=== PATIENT | female | born 1975 | race American Indian/Alaskan Native ===

== ENCOUNTER 2016-11-22 15:10 | Inpatient (IN) | payer MEDICAID ==
--- NOTE | 2016-11-22 15:59 | Emergency Department Report ---
Chief Complaint: Chest Pain Stated Complaint: CHEST PAIN Time Seen by Provider: 11/22/16 15:54 - HPI History of Present Illness: Patient is a 41-year-old female who presents to ED complaining of nonradiating, 5 out of 10 intensity, left 78, sharp chest pain that started yesterday. Patient's issues at home watching TV when she felt the pain. Patient admits history of hypertension on blood pressure medications. Patient denies fevers/chills/nausea/vomiting/abdominal pain shortness of breath. - Exam Vital Signs: Vital Signs 11/22/16 15:31 Temperature 98.8 F Pulse Rate 76 Respiratory 20 Rate Blood Pressure 136/97 O2 Sat by Pulse 100 Oximetry Physical Exam: GENERAL: Alert and oriented x3, no apparent distress, Normal Gait, atraumatic. HEAD: Head is normocephalic and a-traumatic. NECK: Supple. Non edematous, No carotid bruits. No lymphadenopathy or thyromegaly. LUNGS: Symetrical with respiration, No wheezing, no rales or crackles, CTAB. HEART: S1, S2 present, regular rate and rhythm without murmur, no rubs, no gallops. ABDOMEN: No organomegaly was noted,Positive bowel sounds, soft, and non- distended. . Nontender to palpation on all Quadrants, NO CVA tenderness. SKIN: Warm and dry, No lesions, No ulceration or induration present. MSE screening note: Focused history and physical exam performed. Due to findings the following was ordered: ED Medical Decision Making - Medical Decision Making Chest pain protocol ordered. Patient alert and oriented 3 status signs stable patient is in no acute distress. Patient to be seen by a physician. ED Disposition for MSE Condition: Stable
[2016-11-22 17:18] LABS: Basophils % (Auto) 0.3 % (0.0-1.8); Eosinophils % (Auto) 1.8 % (0.0-4.3); Hemoglobin 11.9 gm/dl (10.1-14.3); Mean Corpuscular HGB Conc 32 % (30-34); Mean Corpuscular Volume 79 fl (79-97); Platelet Count 336 K/mm3 (140-440); Red Blood Count 4.71 M/mm3 (3.65-5.03); Red Cell Distribution Width 15.3 % (13.2-15.2); White Blood Count 4.5 K/mm3 (4.5-11.0)
[2016-11-22 17:25] LABS: Mean Corpuscular Hemoglobin 25 pg (28-32)
[2016-11-22 17:38] LABS: Anion Gap 18 mmol/L; BUN/Creatinine Ratio 11.25; Blood Urea Nitrogen 9 mg/dL (7-17); Calcium 8.9 mg/dL (8.4-10.2); Carbon Dioxide 25 mmol/L (22-30); Chloride 100.5 mmol/L (98-107); Glucose 262 mg/dL (65-100); Potassium 3.5 mmol/L (3.6-5.0); Sodium 140 mmol/L (137-145)
--- NOTE | 2016-11-22 21:40 | Emergency Department Report ---
ED Chest Pain HPI - General Chief Complaint: Chest Pain Stated Complaint: CHEST PAIN Time Seen by Provider: 11/22/16 21:25 Source: patient, RN notes reviewed Mode of arrival: Ambulatory Limitations: No Limitations - History of Present Illness Initial Comments: This is a 41-year-old female, previously unknown to me. Has a past medical history of obesity, diabetes, hypertension and anemia. She reports tobacco use. The patient presents to the ER complaining of chest pain. The chest pain is central. It radiates to the back. She endorses diaphoresis, nausea and shortness of breath. This chronic left lower extremity pain. It is not new, worsening or different. Patient reports a positive family history of heart disease, and reports that her parents had heart attacks/heart disease in their 40s. The chest pain has no exacerbating or relieving factors. It has been present since last night. MD Complaint: chest pain -: Gradual Onset: during rest Pain Location: substernal Pain Radiation: back Severity scale (0 -10): 9 Quality: aching, heaviness Consistency: intermittent Improves With: rest re: nausea, vomting, diaphoresis, dyspnea Aspirin use within the Past 7 Days: (0) No - Related Data Home Medications Medication Instructions Recorded Confirmed Last Taken Hydrochlorothiazide [Hctz] 25 mg PO QDAY 02/24/15 02/24/15 02/21/15 Previous Rx's Medication Instructions Recorded Last Taken Type Lisinopril/Hydrochlorothiazide 1 each PO QAM #14 tablet 02/24/15 Unknown Rx [Zestoretic 20-25 mg] Methocarbamol [Robaxin] 750 mg PO BID #14 tab 02/24/15 Unknown Rx Cyclobenzaprine [Flexeril 10 MG 10 mg PO Q8H PRN #15 tablet 05/05/15 Unknown Rx TAB] Ibuprofen [Motrin 800 MG tab] 800 mg PO Q8HR PRN #30 tablet 05/05/15 Unknown Rx HYDROcodone/APAP 5-325 [[place] 1 each PO Q6HR PRN #12 tablet 09/04/15 Unknown Rx 5-325 mg TAB] Acetaminophen/Codeine 1 tab PO BID PRN #14 tab 02/23/16 Unknown Rx [Acetaminophen-Codeine #3 TAB] Furosemide [Lasix] 20 mg PO QDAY #30 tablet 02/23/16 Unknown Rx Lisinopril/Hydrochlorothiazide 1 tab PO QDAY #30 tab 02/23/16 Unknown Rx [Zestoretic 20-25 mg] Butalb/Acetaminophen/Caffeine 1 cap PO Q6HR PRN #20 cap 05/11/16 Unknown Rx [Fioricet 50-300-40 mg CAP] Azithromycin [Zithromax] 250 mg PO DAILY #6 tablet 09/20/16 Unknown Rx Prednisone [predniSONE 10 mg 10 mg PO .TAPER #1 tab.ds.pk 09/20/16 Unknown Rx (6-Day Pack, 21 Tabs)] diphenhydrAMINE [Benadryl CAP] 50 mg PO QHS #15 capsule 09/20/16 Unknown Rx Allergies Allergy/AdvReac Type Severity Reaction Status Date / Time No Known Allergies Allergy Verified 02/24/15 19:21 CALVIN score - Calvin Score Age > 65: (0) No Aspirin use within the Past 7 Days: (0) No 3 or more CAD Risk Factors: (1) Yes 2 or more Angina events in past 24 hrs: (1) Yes Known CAD with more than 50% Stenosis: (0) No Elevated Cardiac Markers: (0) No ST Deviation Greater than 0.5mm: (0) No CALVIN Score: 2 ED Review of Systems ROS: Stated complaint: CHEST PAIN Other details as noted in HPI Constitutional: diaphoresis, malaise, weakness Eyes: denies: vision change ENT: denies: epistaxis Respiratory: denies: shortness of breath Cardiovascular: chest pain Gastrointestinal: nausea Genitourinary: denies: urgency, dysuria, discharge Musculoskeletal: denies: back pain, joint swelling, arthralgia Skin: denies: rash, lesions Neurological: denies: headache, weakness, paresthesias Psychiatric: denies: anxiety, depression ED Past Medical Hx - Past Medical History Hx Hypertension: Yes Hx Diabetes: Yes Additional medical history: morbid obesity. anemia - Surgical History Past Surgical History?: No - Social History Smoking Status: Never Smoker Substance Use Type: None - Medications Home Medications: Home Medications Medication Instructions Recorded Confirmed Last Taken Type Hydrochlorothiazide [Hctz] 25 mg PO QDAY 02/24/15 02/24/15 02/21/15 History Lisinopril/Hydrochlorothiazide 1 each PO QAM #14 tablet 02/24/15 Unknown Rx [Zestoretic 20-25 mg] Methocarbamol [Robaxin] 750 mg PO BID #14 tab 02/24/15 Unknown Rx Cyclobenzaprine [Flexeril 10 MG 10 mg PO Q8H PRN #15 tablet 05/05/15 Unknown Rx TAB] Ibuprofen [Motrin 800 MG tab] 800 mg PO Q8HR PRN #30 tablet 05/05/15 Unknown Rx HYDROcodone/APAP 5-325 [[place] 1 each PO Q6HR PRN #12 tablet 09/04/15 Unknown Rx 5-325 mg TAB] Acetaminophen/Codeine 1 tab PO BID PRN #14 tab 02/23/16 Unknown Rx [Acetaminophen-Codeine #3 TAB] Furosemide [Lasix] 20 mg PO QDAY #30 tablet 02/23/16 Unknown Rx Lisinopril/Hydrochlorothiazide 1 tab PO QDAY #30 tab 02/23/16 Unknown Rx [Zestoretic 20-25 mg] Butalb/Acetaminophen/Caffeine 1 cap PO Q6HR PRN #20 cap 05/11/16 Unknown Rx [Fioricet 50-300-40 mg CAP] Azithromycin [Zithromax] 250 mg PO DAILY #6 tablet 09/20/16 Unknown Rx Prednisone [predniSONE 10 mg 10 mg PO .TAPER #1 tab.ds.pk 09/20/16 Unknown Rx (6-Day Pack, 21 Tabs)] diphenhydrAMINE [Benadryl CAP] 50 mg PO QHS #15 capsule 09/20/16 Unknown Rx ED Physical Exam - General Limitations: No Limitations General appearance: alert, in no apparent distress - Head Head exam: Present: atraumatic, normocephalic - Eye Eye exam: Present: normal appearance, EOMI. Absent: nystagmus - ENT ENT exam: Present: normal exam, normal orophraynx, mucous membranes moist - Neck Neck exam: Present: normal inspection, full ROM. Absent: tenderness, meningismus - Respiratory Respiratory exam: Present: normal lung sounds bilaterally, chest wall tenderness , other (the bilateral breast exam is unremarkable. In the breast exam, I'm escorted by nurse Bette De Souza). Absent: respiratory distress, wheezes, rales, rhonchi, stridor - Cardiovascular Cardiovascular Exam: Present: regular rate, normal rhythm, normal heart sounds. Absent: bradycardia, tachycardia, irregular rhythm, systolic murmur, diastolic murmur, rubs, gallop - GI/Abdominal GI/Abdominal exam: Present: soft, normal bowel sounds. Absent: distended, tenderness, guarding, rebound, rigid, pulsatile mass - Extremities Exam Extremities exam: Present: normal inspection, full ROM, normal capillary refill. Absent: tenderness, pedal edema, joint swelling, calf tenderness - Back Exam Back exam: Present: normal inspection, full ROM. Absent: tenderness, CVA tenderness (R), CVA tenderness (L), muscle spasm, paraspinal tenderness, vertebral tenderness - Neurological Exam Neurological exam: Present: alert, oriented X3, normal gait, other (Extraocular movements intact. Tongue midline. No facial droop. Facial sensation intact to light touch in the V1, V2, V3 distribution bilaterally. 5 and 5 strength in 4 extremities.. Sensation is intact to light touch in 4 extremities.). Absent : motor sensory deficit - Psychiatric Psychiatric exam: Present: normal affect, normal mood - Skin Skin exam: Present: warm, dry, intact, normal color. Absent: rash ED Course Vital Signs 11/22/16 11/22/16 11/22/16 15:31 20:40 21:00 Temperature 98.8 F Pulse Rate 76 78 74 Respiratory 20 17 23 Rate Blood Pressure 136/97 138/83 O2 Sat by Pulse 100 100 Oximetry 11/22/16 11/22/16 11/22/16 21:11 21:30 22:00 Temperature Pulse Rate 82 75 85 Respiratory 16 16 Rate Blood Pressure 124/79 123/69 O2 Sat by Pulse 96 99 Oximetry 11/22/16 11/22/16 11/22/16 22:18 22:30 23:00 Temperature Pulse Rate 78 78 77 Respiratory 14 11 L 16 Rate Blood Pressure 129/59 141/77 134/106 O2 Sat by Pulse 99 99 Oximetry 11/22/16 11/22/16 11/22/16 23:33 23:34 23:40 Temperature Pulse Rate 78 78 Respiratory 19 Rate Blood Pressure 141/77 134/113 134/113 O2 Sat by Pulse 100 100 Oximetry 11/22/16 11/22/16 11/23/16 23:45 23:46 00:00 Temperature Pulse Rate 84 84 90 Respiratory 13 7 L Rate Blood Pressure 134/113 134/113 155/108 O2 Sat by Pulse 99 100 Oximetry 11/23/16 00:15 Temperature Pulse Rate 87 Respiratory 10 L Rate Blood Pressure 155/111 O2 Sat by Pulse 100 Oximetry - Reevaluation(s) Reevaluation #1: 11/22/16 23:05 Differential diagnosis: GERD, gastritis, pancreatitis, acute coronary syndrome, reflux, unstable angina, pneumonia, pulmonary embolus Assessment and plan: 41-year-old female who is obese, with diabetes and hypertension with typical chest pain, strong family history. Troponins negative multiple times, EKG morphologically abnormal. No pulmonary embolus or DVT risk factors, low risk by well's criteria, perc negative, but d-dimer elevated. She'll be treated symptomatically. CT scan of the chest is ordered and pending. Reevaluation #2: 11/23/16 01:29 CT angiogram of the chest grossly negative for pulmonary embolus. The Hospital physician, Dr. Bradley accepts the patient to her service for ACS risk stratification. ED Medical Decision Making - Lab Data Result diagrams: 11/22/16 17:01 11/22/16 17:01 Vital Signs 11/22/16 11/22/16 11/22/16 15:31 20:40 21:00 Temperature 98.8 F Pulse Rate 76 78 74 Respiratory 20 17 23 Rate Blood Pressure 136/97 138/83 O2 Sat by Pulse 100 100 Oximetry 11/22/16 11/22/16 11/22/16 21:11 21:30 22:00 Temperature Pulse Rate 82 75 85 Respiratory 16 16 Rate Blood Pressure 124/79 123/69 O2 Sat by Pulse 96 99 Oximetry Lab Results 11/22/16 11/22/16 11/22/16 Range/Units 17:01 17:01 17:01 WBC 4.5 (4.5-11.0) K/mm3 RBC 4.71 (3.65-5.03) M/mm3 Hgb 11.9 (10.1-14.3) gm/dl Hct 37.0 (30.3-42.9) % MCV 79 (79-97) fl MCH 25 L (28-32) pg MCHC 32 (30-34) % RDW 15.3 H (13.2-15.2) % Plt Count 336 (140-440) K/mm3 Lymph % (Auto) 44.4 H (13.4-35.0) % [place] % (Auto) 5.5 (0.0-7.3) % Eos % (Auto) 1.8 (0.0-4.3) % Baso % (Auto) 0.3 (0.0-1.8) % Lymph # 2.0 (1.2-5.4) K/mm3 [place] # 0.2 (0.0-0.8) K/mm3 Eos # 0.1 (0.0-0.4) K/mm3 Baso # 0.0 (0.0-0.1) K/mm3 Seg Neutrophils % 48.0 (40.0-70.0) % Seg Neutrophils # 2.1 (1.8-7.7) K/mm3 D-Dimer (0-234) ng/mlDDU Sodium 140 (137-145) mmol/L Potassium 3.5 L (3.6-5.0) mmol/L Chloride 100.5 (98-107) mmol/L Carbon Dioxide 25 (22-30) mmol/L Anion Gap 18 mmol/L BUN 9 (7-17) mg/dL Creatinine 0.8 (0.7-1.2) mg/dL Estimated GFR > 60 ml/min BUN/Creatinine Ratio 11.25 % Glucose 262 H (65-100) mg/dL Calcium 8.9 (8.4-10.2) mg/dL Troponin T < 0.010 < 0.010 (0.00-0.029) ng/mL HCG, Quant (0-4) mIU/mL 11/22/16 11/22/16 11/22/16 Range/Units 22:06 22:06 22:06 WBC (4.5-11.0) K/mm3 RBC (3.65-5.03) M/mm3 Hgb (10.1-14.3) gm/dl Hct (30.3-42.9) % MCV (79-97) fl MCH (28-32) pg MCHC (30-34) % RDW (13.2-15.2) % Plt Count (140-440) K/mm3 Lymph % (Auto) (13.4-35.0) % [place] % (Auto) (0.0-7.3) % Eos % (Auto) (0.0-4.3) % Baso % (Auto) (0.0-1.8) % Lymph # (1.2-5.4) K/mm3 [place] # (0.0-0.8) K/mm3 Eos # (0.0-0.4) K/mm3 Baso # (0.0-0.1) K/mm3 Seg Neutrophils % (40.0-70.0) % Seg Neutrophils # (1.8-7.7) K/mm3 D-Dimer 869.23 H (0-234) ng/mlDDU Sodium (137-145) mmol/L Potassium (3.6-5.0) mmol/L Chloride (98-107) mmol/L Carbon Dioxide (22-30) mmol/L Anion Gap mmol/L BUN (7-17) mg/dL Creatinine (0.7-1.2) mg/dL Estimated GFR ml/min BUN/Creatinine Ratio % Glucose (65-100) mg/dL Calcium (8.4-10.2) mg/dL Troponin T < 0.010 (0.00-0.029) ng/mL HCG, Quant < 2 (0-4) mIU/mL - EKG Data 11/22/16 23:06 normal sinus, 61 bpm, prolonged QTC at 457 ms, nonspecific T- wave at about, not morphologically consistent with STEMI, nonspecific changes when compared to prior EKG from 2012. - Radiology Data Radiology results: report reviewed, image reviewed CT angiogram of the chest negative for pulmonary embolus. Critical care attestation.: If time is entered above; I have spent that time in minutes in the direct care of this critically ill patient, excluding procedure time. ED Disposition Clinical Impression: Chest pain Qualifiers: Chest pain type: unspecified Qualified Code(s): R07.9 - Chest pain, unspecified Disposition: OP ADMITTED IP TO THIS HOSP Is pt being admited?: Yes Does the pt Need Aspirin: Yes Condition: Good Instructions: Chest Pain (ED)
[2016-11-22] MEDS ORDERED: NACL ONE (23:09)
[2016-11-22] MEDS: NITROSTAT SL PRN ×2 (23:40→23:45)
--- NOTE | 2016-11-23 00:17 | Cat Scan Report ---
FINAL REPORT EXAM: CT ANGIO CHEST HISTORY: cp TECHNIQUE: Serial axial images through the chest during intravenous administration of contrast with coronal and sagittal reconstruction PRIORS: None. FINDINGS: There is respiratory motion artifact in the lung bases which limits the sensitivity of the exam. No focal consolidations are seen in the lungs and there are no pleural effusions. No abnormal mass or adenopathy is identified. The heart measures 14.7 centimeters in length. No abnormal filling defects are identified in the central pulmonary arteries. The distal pulmonary artery branches in the lung bases are obscured by artifact. There is fatty infiltration of the liver. Degenerative changes are seen in the spine. IMPRESSION: 1. Study is degraded by motion artifact. No large central pulmonary embolism is identified. A small peripheral embolism in the distal pulmonary arteries in the lung bases is not excluded. 2. Cardiomegaly. 3. Fatty infiltration of the liver.
[2016-11-23] MEDS ORDERED: BABY ASPIRIN PO ONE (01:31)
[2016-11-23] MEDS ORDERED: APRESOLINE IV PRN (01:49)
--- NOTE | 2016-11-23 01:49 | History and Physical Report ---
History of Present Illness Date of examination: 11/23/16 History of present illness: 41-year-old woman with history of hypertension, diabetes, obesity, see emergency room with complaint of chest pain was started yesterday. Pains in the epigastric area which she described as sharp pain, intermittent in nature lasting for 5 minutes, intensity 5/10, no radiation, cannot identify exacerbating or relieving factors. Admits to nausea vomiting, shortness of breath, no diaphoresis or palpitation, no previous stress test Patient denies cough, abdominal pain, hematochezia, dysuria, frequency, focal weakness, dysarthria, fever chills, polydipsia polyuria, hot or cold intolerance , easy bruisability, or rash or bleeding from mucosal membrane, rhinorrhea, epistaxis, earache, tinnitus, blurry vision, eye discharge, anxiety, depression. Other review of systems negative PAST SURGICAL HISTORY: None SOCIAL HISTORY: Denies alcohol, tobacco, drugs FAMILY HISTORY: Hypertension Medications and Allergies Allergies Allergy/AdvReac Type Severity Reaction Status Date / Time No Known Allergies Allergy Verified 02/24/15 19:21 Home Medications Medication Instructions Recorded Confirmed Last Taken Type Hydrochlorothiazide [Hctz] 25 mg PO QDAY 02/24/15 02/24/15 02/21/15 History Lisinopril/Hydrochlorothiazide 1 each PO QAM #14 tablet 02/24/15 Unknown Rx [Zestoretic 20-25 mg] Methocarbamol [Robaxin] 750 mg PO BID #14 tab 02/24/15 Unknown Rx Cyclobenzaprine [Flexeril 10 MG 10 mg PO Q8H PRN #15 tablet 05/05/15 Unknown Rx TAB] Ibuprofen [Motrin 800 MG tab] 800 mg PO Q8HR PRN #30 tablet 05/05/15 Unknown Rx HYDROcodone/APAP 5-325 [[place] 1 each PO Q6HR PRN #12 tablet 09/04/15 Unknown Rx 5-325 mg TAB] Acetaminophen/Codeine 1 tab PO BID PRN #14 tab 02/23/16 Unknown Rx [Acetaminophen-Codeine #3 TAB] Furosemide [Lasix] 20 mg PO QDAY #30 tablet 02/23/16 Unknown Rx Lisinopril/Hydrochlorothiazide 1 tab PO QDAY #30 tab 02/23/16 Unknown Rx [Zestoretic 20-25 mg] Butalb/Acetaminophen/Caffeine 1 cap PO Q6HR PRN #20 cap 05/11/16 Unknown Rx [Fioricet 50-300-40 mg CAP] Azithromycin [Zithromax] 250 mg PO DAILY #6 tablet 09/20/16 Unknown Rx Prednisone [predniSONE 10 mg 10 mg PO .TAPER #1 tab.ds.pk 09/20/16 Unknown Rx (6-Day Pack, 21 Tabs)] diphenhydrAMINE [Benadryl CAP] 50 mg PO QHS #15 capsule 09/20/16 Unknown Rx Active Meds: Active Medications Hydralazine HCl (Apresoline) 5 mg IV Q6HR PRN PRN Reason: Hypertension Nitroglycerin (Nitrostat) 0.4 mg SL .Q5MIN PRN PRN Reason: Chest Pain Last Admin: 11/22/16 23:45 Dose: 0.4 mg Exam - Physical Exam Narrative exam: Gen. appearance: Patient lying in bed, no apparent distress HEENT: Normocephalic, atraumatic, pupils equally round and reactive to light, extraocular movement intact, and no sclericterus,. No JVD or thyromegaly or nodule,neck supple, no carotid bruit ,mucous membranes moist, no exudate or erythema Heart: S1, S2, regular rate and rhythm Lungs: Clear to auscultation bilaterally, breathing comfortable Abdomen: Positive bowel sounds, nontender, nondistended, no organomegaly Extremity: No edema, cyanosis, clubbing Skin: No rash, nodules, warm, dry Neuro: Oriented 3, cranial nerves II-12 intact, speech is fluent, motor and sensory intact - Constitutional Vitals: Temp Pulse Resp BP Pulse Ox 98.8 F 87 10 L 155/111 100 11/22/16 15:31 11/23/16 00:15 11/23/16 00:15 11/23/16 00:15 11/23/16 00:15 Results - Labs CBC & Chem 7: 11/22/16 17:01 11/22/16 17:01 Labs: Abnormal lab results 11/22/16 11/22/16 11/22/16 Range/Units 17:01 17:01 22:06 MCH 25 L (28-32) pg RDW 15.3 H (13.2-15.2) % Lymph % (Auto) 44.4 H (13.4-35.0) % D-Dimer 869.23 H (0-234) ng/mlDDU Potassium 3.5 L (3.6-5.0) mmol/L Glucose 262 H (65-100) mg/dL - Imaging and Cardiology EKG: image reviewed CT scan - chest: report reviewed Assessment and Plan Hypertensive urgency Chest pain, rule out ACS Diabetes type 2 Obesity Admits medicine Check cardiac enzymes, liver profile and obtain a stress test Start aspirin, IV morphine, DVT prophylaxis
[2016-11-23] MEDS ORDERED: MORPHINE IV PRN (03:12)
[2016-11-23] MEDS ORDERED: SODIUM CHLORIDE FLUSH SYRINGE 10 ML IV PRN (03:12)
[2016-11-23] MEDS ORDERED: ZOFRAN IV PRN (03:12)
[2016-11-23] MEDS ORDERED: DULCOLAX PR PRN (03:12)
[2016-11-23] MEDS ORDERED: TYLENOL PO PRN (03:12)
[2016-11-23] MEDS ORDERED: MILK OF MAGNESIA PO PRN (03:12)
[2016-11-23] MEDS ORDERED: BABY ASPIRIN ONE (03:25)
--- NOTE | 2016-11-23 05:42 | Admit Criteria Form ---
Admission Criteria Documentation: CHEST PAIN Clinical Indications for Admission to Inpatient Care (Place 'X' for any and all applicable criteria): Admission is indicated for chest pain and ANY ONE of the following(1)(2)(3)(4)(5 ): [ ]I. Angina with acute coronary syndrome (Also use Myocardial Infarction or Angina guideline) [ ]II. Hemodynamic instability [ ]III. Angina needing acute intervention as indicated by ALL of the following( 11)(12): [ ]a) Unstable angina is present as indicated by angina that is ANY ONE of the following: [ ]i) New onset [ ]ii) Nocturnal [ ]iii) Prolonged at rest [ ]iv) Progressive [ ]b) Angina warrants acute intervention as indicated by ANY ONE of the following: [ ]i) Recurrent angina (e.g, not responding as previously to treatment) [ ]ii) Angina at rest or with low-level activities despite initial medical therapy [ ]iii) New or presumably new ST-segment depression on ECG [ ]iv) Signs or symptoms of heart failure (eg, dyspnea, pulmonary edema) [ ]v) New or worsening mitral regurgitation [ ]vi) Hemodynamic instability [ ]vii) Dangerous arrhythmia (eg, sustained ventricular tachycardia) [ ]viii) History of percutaneous coronary intervention within 6 months [ ]ix) History of coronary artery bypass graft surgery [ ]x) CALVIN risk score of 2 or greater[A] [ ]xi) History of Diabetes(14) [ ]xii) High-risk cardiac ischemia findings on noninvasive testing (e.g, echocardiogram, treadmill testing, nuclear scan) [ ]xiii) Chronic renal insufficiency (ie, estimated GFR less than 60 mL/min/1.732m) [ ]xiv) Left ventricular ejection fraction less than 40% [ ]IV. Evidence of OR (eg, cardiac biomarkers positive, ST-segment elevation on ECG) also use Myocardial Infarction Criteria Form. [ ]V. Pulmonary edema [ ]. Respiratory distress [ ]VII. Chest pain indicative of serious diagnosis other than coronary artery disease (eg, aortic dissection) [X ]VIII. Contraindications and/or Inappropriate clinical situations for Observational Care in patients with Chest Pain, when ANY ONE of the following is required: [ X]a) Patient with risk factor for pulmonary embolism, acute coronary syndrome and myocardial infarction (18) [ ]b) Patient with Pulmonary embolism require an average LOS of 4.3 days, therefore emergency department observation management is inappropriate 18,23 [ ]c) Painful condition/s in the elderly, have the highest rate of recidivism after emergency department observation management (10.8%) 20,21,22 [ ]d) Elevated cardiac biomarker requires intensive and exhaustive care (19) [ ]IX. General contraindications and/or Inappropriate clinical situations for Observational Care in patients with Chest Pain, when ANY ONE of the following is required: [ ]a) Prediction of prolongation of LOS based on ANY ONE of the following may be considered as a contraindication for observational care 2, 3, 4, 5, 6, 7, 8, 9, 10, 11 [ ]i) Age > 65 yrs. [ ]ii) Patient arriving by ambulance [ ]iii) Patient with high acuity [ ]iv) Patient requiring vital sign monitoring [ ]v) Patient on IV medication [ ]b) Systolic blood pressures 180mmHg 3,12 [ ]c) Patient with altered mental status including delirium and other alteration of consciousness, (3) [ ]d) Patient whose discharge disposition will be to a retirement home or rehabilitation home should not be managed in Emergency Department Observation Unit. CMS rule requires 3 days hospital stay before such placement. 3,13 [ ]e) Patient with failure to thrive due to broad array of etiologies 3,16,17 [ ]f) Inability to ambulate 3,14 Extended stay beyond goal length of stay may be needed for (1)(28): [ ]a) Specific condition diagnosed after evaluation (eg, pulmonary embolism, aortic dissection) [ ]b) Unstable angina [ ]c) Continued suspicion of acute coronary syndrome with inability to complete needed cardiac evaluation (eg, patient clinically unable to undergo stress testing) [ ]d) Myocardial infarction (Contents from ANGINA and CHEST PAIN clinical indications for admission to inpatient care have been integrated in this form) The original [email or web address] content created by [employer] has been revised. The portions of the content which have been revised are identified through the use of italic text or in bold, and [facility] has neither reviewed nor approved the modified material. All other unmodified content is copyright [email or web address]. Please see references footnoted in the original [email or web address] edition 2016 Admission Criteria Met: Yes
[2016-11-23 07:16] LABS: Creatine Kinase 148 units/L (30-135)
[2016-11-23 07:21] LABS: Creatine Kinase MB < 1.0 ng/mL (0.0-4.0)
[2016-11-23] MEDS ORDERED: LEXISCAN IV ONE ×2 (08:17→08:30)
[2016-11-23] MEDS ORDERED: LOVENOX SUB-Q SCH (10:00)
[2016-11-23 13:02] LABS: Creatine Kinase MB < 1.0 ng/mL (0.0-4.0)
[2016-11-23 13:05] LABS: Creatine Kinase 145 units/L (30-135)
--- NOTE | 2016-11-23 13:18 | Treadmill Report ---
NUCLEAR STUDY READING PHYSICIAN: Duane Galo MD REASON FOR STUDY: Chest pain. IMAGING PROTOCOL: The patient received 10 mCi of Technetium 99m Tetrofosmin for resting image and 28 mCi of Technetium 99m Tetrofosmin for stress imaging. The imaging for the whole procedure was completed 30-90 minutes following the initial injection of Technetium 99m tetrofosmin. The SPECT imaging in the 180 degree arc was performed in the right anterior oblique projection. Computerized reconstruction of the images was performed for analysis. IMAGING RESULTS: Normal cavity size stress to rest. Normal distribution of radionuclide in the anterior, inferior, septal, and apical regions. Gated SPECT; EF approximately 50% with no wall motion abnormality. The patient infused Lexiscan with no EKG changes. SUMMARY: 1. Negative Lexiscan EKG. 2. Normal rest and stress myocardial perfusion scan. No significant stress ischemia. No wall motion abnormality. Gated SPECT, EF is approximately 50%. JOB# [id number] NELLY/LILLIANA
--- NOTE | 2016-11-23 17:28 | Discharge Summary ---
Providers - Providers Date of Admission: 11/23/16 01:45 Date of discharge: 11/23/16 Attending physician: DARLENE LYON Primary care physician: [employer] Hospitalization Reason for admission: chest pain Condition: Good Pertinent studies: --Elevated D dimers CTA chest; no large central pulmonary embolism identified, small peripheral embolism in the distal pulmonary in the lung base is not excluded Cardiomegaly, fatty infiltration of liver Patient is hemodynamically stable, denies any chest pain or shortness of breath , room air O2 sats 96-97%, unlikely PE, repeat CT angiogram chest as outpatient in 2-3 days,To be followed by primary care physician Stress test;Treadmill stress test; Negative for reversible ischemia, normal rest and stress myocardial perfusion scan, normal left ventricular function with ejection fraction of 50% Hospital course: 41-year-old morbidly obese female patient significant history of hypertension diabetes mellitus obesity was admitted through emergency room with chest pain Admitted to the hospital symptomatically managed subsequently underwent nuclear stress test Which was negative for reversible ischemia and preserved left and function Patient also had elevated d-dimer, CT chest did not reveal large PE, however unable to rule out peripheral small pulmonary embolism in view of morbid obesity Patient has no shortness of breath or chest pain, saturating 95-96% room air, asymptomatic, advised to repeat CT angiogram of the chest in 2-3 days to be reviewed by primary care physician Patient also advised she has any chest pain or shortness of breath contacting me immediately or go to emergency room, patient verbalized understanding Today she is comfortable in bed denies chest pain shortness of breath, alert awake oriented 3 not in acute distress, vital signs stable [id number] evaluation physical examination done by me prior to discharge did not reveal any new changes as detailed in the physical exam Final diagnosis: --accelerated hypertension Well-controlled, continue current antihypertensives and when necessary medications --Chest pain, rule out ACS; symptoms improved Stress test negative for reversible ischemia preserved left ventricular function --Elevated D dimers;no large central pulmonary embolism identified, small peripheral embolism in the distal pulmonary in the lung base is not excluded Repeat CTA in 2 days. To be reviewed by PMD --Diabetes type 2; exercise as tolerated, diabetic diet, check with primary care physician to start oral hypoglycemics if needed --Obesity; on screening done advised modification and exercise as tolerated and weight reduction When medically stable, patient may benefit by outpatient bariatric surgical evaluation for weight reduction program --Chronic pain syndrome. Patient is on multiple pain medications and muscle relaxers Advised to check with primary care physician before resuming medications; Disposition: DISCHARGED TO HOME OR SELFCARE Time spent for discharge: 32 min Core Measure Documentation - Palliative Care Palliative Care/ Comfort Measures: Not Applicable - Core Measures Any of the following diagnoses?: none Exam - Constitutional Vitals: Temp Pulse Resp BP Pulse Ox 98.4 F 84 20 156/103 95 11/23/16 08:37 11/23/16 10:40 11/23/16 08:37 11/23/16 10:40 11/23/16 08:37 General appearance: Present: no acute distress, well-nourished - EENT Eyes: Present: PERRL, EOM intact - Neck Neck: Present: supple, normal ROM - Respiratory Respiratory effort: normal Respiratory: bilateral: diminished, negative: rales, rhonchi, wheezing - Cardiovascular Rhythm: regular Heart Sounds: Present: S1 & S2 - Extremities Extremities: no ischemia, pulses intact, pulses symmetrical Peripheral Pulses: within normal limits - Abdominal General gastrointestinal: Present: soft, non-tender, non-distended, normal bowel sounds - Integumentary Integumentary: Present: clear, warm - Musculoskeletal Musculoskeletal: strength equal bilaterally - Psychiatric Psychiatric: appropriate mood/affect, cooperative - Neurologic Neurologic: CNII-XII intact, moves all extremities Plan Activity: no restrictions Diet: other (cardiac diet) Additional Instructions: If you have chest Pain or shortness of breath, contact M.D. or go to emergency room. CTA chest; no large central pulmonary embolism identified, small peripheral embolism in the distal pulmonary in the lung base is not excluded. Cardiomegaly, fatty infiltration of liver. Patient is hemodynamically stable, denies any chest pain or shortness of breath, room air O2 sats 96-97%, unlikely PE, repeat CT angiogram chest as outpatient in 2-3 days ,To be followed by primary care physician. CTA chest outpatient in in 2-3 days to be reviewed by primary care physician Follow up with: PRIMARY MD BARB [Primary Care Provider] - 3-5 Days
[2016-11-23 18:00] VITALS: BP 148/95
[2016-11-24] MEDS ORDERED: BABY ASPIRIN PO SCH (10:00)
== END 2016-11-23 19:02 | disposition home or self-care (01) | DRG 305 ==
LOC: ED 15:10 → 4A 11-23 01:45
PROVIDERS: ADMIT Internal Medicine; ATTEND Internal Medicine
DX: I16.0 Hypertensive urgency (principal); I24.9 Acute ischemic heart disease, unspecified; Z68.43 Body mass index [BMI] 50.0-59.9, adult; I10 Essential (primary) hypertension; E11.9 Type 2 diabetes mellitus without complications; G89.4 Chronic pain syndrome; E66.9 Obesity, unspecified; Z82.49 Family history of ischemic heart disease and other diseases of the circulatory system; Z79.899 Other long term (current) drug therapy
CPT/HCPCS: 36415; 71275; 78452; 80048; 80061; 82550; 82553; 82962; 84484; 84702; 85025; 85379; 93005; 93010; 93017; A9502; J1650; J2785; Q9967

== ENCOUNTER 2017-04-23 17:37 | Emergency (ER) | payer MEDICAID ==
[2017-04-23 18:50] LABS: Basophils % (Auto) 0.7 % (0.0-1.8); Eosinophils % (Auto) 2.3 % (0.0-4.3); Hematocrit 34.8 % (30.3-42.9); Hemoglobin 11.1 gm/dl (10.1-14.3); Mean Corpuscular HGB Conc 32 % (30-34); Mean Corpuscular Volume 79 fl (79-97); Platelet Count 312 K/mm3 (140-440); Red Blood Count 4.44 M/mm3 (3.65-5.03); Red Cell Distribution Width 16.1 % (13.2-15.2); White Blood Count 5.5 K/mm3 (4.5-11.0)
[2017-04-23 19:01] LABS: Anion Gap 17 mmol/L; Blood Urea Nitrogen 8 mg/dL (7-17); Calcium 8.4 mg/dL (8.4-10.2); Carbon Dioxide 25 mmol/L (22-30); Chloride 101.4 mmol/L (98-107); Glucose 176 mg/dL (65-100); Mean Corpuscular Hemoglobin 25 pg (28-32); Potassium 3.8 mmol/L (3.6-5.0); Sodium 140 mmol/L (137-145)
--- NOTE | 2017-04-23 20:34 | Cat Scan Report ---
FINAL REPORT PROCEDURE: CT HEAD/BRAIN WO CON TECHNIQUE: Computerized tomography of the head was performed without contrast material. HISTORY: head injury, dizziness COMPARISON: No prior studies are available for comparison. FINDINGS: Skull and scalp: Normal. Paranasal sinuses: Normal. Ventricles and subarachnoid spaces: Normal. Cerebrum: No evidence of hemorrhage, acute infarction or mass . Cerebellum and brainstem: No evidence of hemorrhage, acute infarction or mass. Vasculature: Normal. Comments: None. IMPRESSION: Normal Examination
[2017-04-23 21:06] LABS: Bilirubin,Urine NEG (Negative); Blood,Urine NEG (Negative); Ketones,Urine NEG (Negative); Leukocyte Esterase,Urine TR (Negative); Mucus,Urine FEW /HPF; Nitrite,Urine NEG (Negative); Urobilinogen,Urine < 2.0 mg/dL (<2.0)
[2017-04-23 23:00] VITALS: BP 168/97
[2017-04-23] MEDS ORDERED: ZOFRAN ODT PO ONE (23:08)
[2017-04-23] MEDS ORDERED: ANTIVERT PO ONE (23:08)
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
== END 2017-04-23 23:30 | disposition home or self-care (01) ==
LOC: ED 17:37
DX: S00.93XA Contusion of unspecified part of head, initial encounter (principal); R42 Dizziness and giddiness; R11.0 Nausea; I10 Essential (primary) hypertension; F17.200 Nicotine dependence, unspecified, uncomplicated; X58.XXXA Exposure to other specified factors, initial encounter; Y93.9 Activity, unspecified; Y92.9 Unspecified place or not applicable; Y99.9 Unspecified external cause status
CPT/HCPCS: 36415; 70450; 80048; 81001; 82962; 84703; 85025; 99284; Q0162

== ENCOUNTER 2018-01-05 20:34 | Emergency (ER) | payer MEDICAID, SELFPAY ==
[2018-01-05 21:13] VITALS: BP 168/101
[2018-01-05 21:50] LABS: Amorphous Crystals,Urine Few; Bacteria,Urine 2+ /HPF (Negative); Bilirubin,Urine NEG (Negative); Blood,Urine NEG (Negative); Color,Urine Yellow (Yellow); Mucus,Urine FEW /HPF; Protein,Urine <15 mg/dL mg/dL (Negative); Urobilinogen,Urine < 2.0 mg/dL (<2.0)
[2018-01-05 21:52] LABS: HCG Qualitative,Urine Negative (Negative)
== END 2018-01-06 00:38 | disposition left against medical advice (07) ==
LOC: ED 20:34
DX: Z53.21 Procedure and treatment not carried out due to patient leaving prior to being seen by health care provider (principal)
CPT/HCPCS: 81001; 81025; 87591

== ENCOUNTER 2018-01-22 09:37 | Outpatient (CLI) | payer OTHER ==
--- NOTE | 2018-01-22 15:37 | XRay Report ---
Lumbar spine: Back pain. AP and lateral views are obtained. The vertebral height, alignment, and interspaces are preserved. A small traction spur is present at superior margin of L4. The bones are well-mineralized. No significant apophyseal joint disease is appreciated on these images. No significant change identified when compared to prior exam in April 2015. Impression: No acute or significant findings.
--- NOTE | 2018-01-22 17:09 | XRay Report ---
FINAL REPORT EXAM: XR WRIST 2V LT HISTORY: DIABETIC,STAGE 2 PRECANCER TECHNIQUE: AP and lateral views of the left wrist PRIORS: None. FINDINGS: No evidence of acute fracture or dislocation is seen. The soft tissues demonstrate generalized soft tissue swelling but no radiopaque foreign bodies. Mild narrowing of the radiocarpal joint is seen. IMPRESSION: No acute bony abnormality identified. Generalized soft tissue swelling in the wrist.
== END 2018-01-22 09:38 | disposition home or self-care (01) ==
LOC: XRAY 09:37
PROVIDERS: ATTEND Internal Medicine
DX: M79.89 Other specified soft tissue disorders (principal); M53.86 Other specified dorsopathies, lumbar region; E11.9 Type 2 diabetes mellitus without complications; I10 Essential (primary) hypertension
CPT/HCPCS: 72100

== ENCOUNTER 2018-02-02 15:05 | Emergency (ER) | payer MEDICAID, OTHER ==
[2018-02-02 15:12] VITALS: BP 141/84
[2018-02-02] MEDS ORDERED: DELTASONE PO ONE (17:13)
[2018-02-02] MEDS ORDERED: TESSALON PERLES PO ONE (17:13)
--- NOTE | 2018-02-02 17:19 | Emergency Department Report ---
- General Chief Complaint: Upper Respiratory Infection Stated Complaint: FLU LIKE SYMPTOMS Time Seen by Provider: 02/02/18 17:06 Source: patient Mode of arrival: Ambulatory Limitations: No Limitations - History of Present Illness Initial Comments: 42-year-old female with a past medical history hypertension, obesity, and non- insulin-dependent diabetes presents with complaints of cough, nasal congestion, hoarse voice, and sinus drainage for the last 2 weeks. Patient also had this intermittent wheezing episodes and her son's nebulizer machine with improvement. Subjective fever reported yesterday. Patient also concerned she might be allergic to pollen. Generalized pain reported in anterior chest pain with coughing. - Related Data Previous Rx's Medication Instructions Recorded Last Taken Type Furosemide [Lasix TAB] 20 mg PO QDAY #30 tablet 02/23/16 Unknown Rx Lisinopril/Hydrochlorothiazide 1 tab PO QDAY #30 tab 02/23/16 Unknown Rx [Zestoretic 20-25 mg] Meclizine [Antivert] 25 mg PO TID PRN #15 tablet 04/23/17 Unknown Rx Naproxen [Naprosyn TAB] 500 mg PO BID #20 tablet 04/23/17 Unknown Rx Ondansetron [Zofran Odt] 4 mg PO TID PRN #15 tab.rapdis 04/23/17 Unknown Rx traMADol [Ultram 50 MG tab] 50 mg PO Q6HR PRN #20 tablet 04/23/17 Unknown Rx ALBUTEROL Inhaler [ProAir HFA 2 puff IH QID PRN #1 inhalation 02/02/18 Unknown Rx Inhaler] ALBUTEROL NEB's [Proventil 0.083% 2.5 mg IH TID PRN #60 neb 02/02/18 Unknown Rx NEBS] Azithromycin [Zithromax Z-JASMIN] 1 dose PO DAILY 5 Days tab 02/02/18 Unknown Rx Benzonatate [Tessalon Perles] 100 mg PO Q8HR PRN #30 capsule 02/02/18 Unknown Rx predniSONE [Deltasone] 40 mg PO QDAY 5 Days tab 02/02/18 Unknown Rx Allergies Allergy/AdvReac Type Severity Reaction Status Date / Time No Known Allergies Allergy Verified 04/23/17 17:47 ED Review of Systems ROS: Stated complaint: FLU LIKE SYMPTOMS Other details as noted in HPI Comment: All other systems reviewed and negative ED Past Medical Hx - Past Medical History Hx Hypertension: Yes Hx Diabetes: Yes Hx Asthma: No Hx COPD: No Additional medical history: morbid obesity. anemia - Surgical History Additional Surgical History: tubiligation - Social History Smoking Status: Never Smoker Substance Use Type: None - Medications Home Medications: Home Medications Medication Instructions Recorded Confirmed Last Taken Type Furosemide [Lasix TAB] 20 mg PO QDAY #30 tablet 02/23/16 Unknown Rx Lisinopril/Hydrochlorothiazide 1 tab PO QDAY #30 tab 02/23/16 Unknown Rx [Zestoretic 20-25 mg] Meclizine [Antivert] 25 mg PO TID PRN #15 tablet 04/23/17 Unknown Rx Naproxen [Naprosyn TAB] 500 mg PO BID #20 tablet 04/23/17 Unknown Rx Ondansetron [Zofran Odt] 4 mg PO TID PRN #15 tab.rapdis 04/23/17 Unknown Rx traMADol [Ultram 50 MG tab] 50 mg PO Q6HR PRN #20 tablet 04/23/17 Unknown Rx ALBUTEROL Inhaler [ProAir HFA 2 puff IH QID PRN #1 inhalation 02/02/18 Unknown Rx Inhaler] ALBUTEROL NEB's [Proventil 0.083% 2.5 mg IH TID PRN #60 neb 02/02/18 Unknown Rx NEBS] Azithromycin [Zithromax Z-JASMIN] 1 dose PO DAILY 5 Days tab 02/02/18 Unknown Rx Benzonatate [Tessalon Perles] 100 mg PO Q8HR PRN #30 capsule 02/02/18 Unknown Rx predniSONE [Deltasone] 40 mg PO QDAY 5 Days tab 02/02/18 Unknown Rx ED Physical Exam - General Limitations: No Limitations - Other Other exam information: General: No limitations, patient is alert in no acute distress Head exam: Atraumatic, normocephalic Eyes exam: Normal appearance ENT: Moist mucous membrane, normal oropharynx, hoarse voice Neck exam: Normal inspection, full range of motion, no meningismus nontender Respiratory exam: Clear to auscultation bilateral, no wheezes, rales, crackles. Frequent dry cough Cardiovascular: Normal rate and rhythm, normal heart sounds Abdomen: Soft, nondistended, and nontender, with normal bowel sounds, no rebound, or guarding Extremity: Full range of motion normal inspection no deformity Back: Normal Inspection, full range of motion, no tenderness Neurologic: Alert, oriented x3, cranial nerves intact, no motor or sensory deficit Psychiatric: normal affect, normal mood Skin: Warm, dry, intact ED Course Vital Signs 02/02/18 15:08 Temperature 98.5 F Pulse Rate 100 H Respiratory 20 Rate Blood Pressure 141/84 O2 Sat by Pulse 98 Oximetry ED Medical Decision Making - Radiology Data Radiology results: image reviewed interpreted by me: Chest x-ray read by me: No acute findings - Medical Decision Making Plan to discharge patient on medications for acute bronchitis and cough. Patient provided a nebulizer mouthpiece so she would not have to use her signs. Outpatient follow-up encouraged. Patient warned that prednisone can increase glucose - Differential Diagnosis bronchitis, seasonal allergies, viral syndrome, URI, pneumonia Critical Care Time: No Critical care attestation.: If time is entered above; I have spent that time in minutes in the direct care of this critically ill patient, excluding procedure time. ED Disposition Clinical Impression: Acute bronchitis Disposition: TO HOME OR SELFCARE Is pt being admited?: No Does the pt Need Aspirin: No Condition: Stable Instructions: Acute Bronchitis (ED) Additional Instructions: Take the medication as prescribed. Return if symptoms worsen. The prednisone can elevate your blood sugar therefore it is important to monitor your blood glucose/sugar closely and follow-up with your doctor. Prescriptions: ALBUTEROL Inhaler [ProAir HFA Inhaler] 2 puff IH QID PRN #1 inhalation PRN Reason: Shortness Of Breath ALBUTEROL NEB's [Proventil 0.083% NEBS] 2.5 mg IH TID PRN #60 neb PRN Reason: Wheezing Azithromycin [Zithromax Z-JASMIN] 1 dose PO DAILY 5 Days tab Benzonatate [Tessalon Perles] 100 mg PO Q8HR PRN #30 capsule PRN Reason: Cough predniSONE [Deltasone] 40 mg PO QDAY 5 Days tab Referrals: PRIMARY CARE,MD [Primary Care Provider] - 3-5 Days Time of Disposition: 17:59
--- NOTE | 2018-02-02 18:58 | XRay Report ---
FINAL REPORT EXAM: XR CHEST ROUTINE 2V HISTORY: cough, wheeze TECHNIQUE: Two views of the chest were performed Comparison: None FINDINGS: Heart size is normal. There is prominence of the bilateral interstitial markings. Lateral film is motion degraded. There is mild bronchial thickening. There are no pleural effusions. There is mild degenerative spondylosis of the thoracic vertebral bodies. IMPRESSION: Mild prominence of the bilateral interstitial markings and mild bronchial thickening. Findings may represent a viral pneumonia or bronchitis. There is motion degradation on the lateral projection. Favor viral infiltrate.
== END 2018-02-02 18:13 | disposition home or self-care (01) ==
LOC: ED 15:05
DX: J20.9 Acute bronchitis, unspecified (principal); I10 Essential (primary) hypertension; E11.9 Type 2 diabetes mellitus without complications; E66.01 Morbid (severe) obesity due to excess calories; Z98.51 Tubal ligation status
CPT/HCPCS: 71046; 99283; J7512

== ENCOUNTER 2018-11-20 15:52 | Emergency (ER) | payer MEDICAID ==
[2018-11-20 16:40] LABS: Basophils % (Auto) 0.6 % (0.0-1.8); Eosinophils # (Auto) 0.1 K/mm3 (0.0-0.4); Eosinophils % (Auto) 1.6 % (0.0-4.3); Hematocrit 41.8 % (30.3-42.9); Hemoglobin 13.8 gm/dl (10.1-14.3); Lymphocytes # (Auto) 2.3 K/mm3 (1.2-5.4); Lymphocytes % (Auto) 46.5 % (13.4-35.0); Mean Corpuscular HGB Conc 33 % (30-34); Mean Corpuscular Volume 78 fl (79-97); Monocytes # (Auto) 0.3 K/mm3 (0.0-0.8); Monocytes % (Auto) 5.4 % (0.0-7.3); Platelet Count 315 K/mm3 (140-440); Red Blood Count 5.34 M/mm3 (3.65-5.03); Red Cell Distribution Width 15.1 % (13.2-15.2)
[2018-11-20 17:13] LABS: BUN/Creatinine Ratio 13; Blood Urea Nitrogen 10 mg/dL (7-17); Hemolysis Index 0
[2018-11-20 17:14] LABS: Bacteria,Urine 1+ /HPF (Negative); Bilirubin,Urine NEG (Negative); Blood,Urine NEG (Negative); Color,Urine Straw (Yellow); Mucus,Urine FEW /HPF; Protein,Urine <15 mg/dL mg/dL (Negative); Urobilinogen,Urine < 2.0 mg/dL (<2.0)
--- NOTE | 2018-11-20 17:40 | Emergency Department Report ---
ED General Adult HPI - General Chief complaint: Hyperglycemia Stated complaint: GLUCOSE HIGH Time Seen by Provider: 11/20/18 17:05 Source: patient Mode of arrival: Ambulatory Limitations: No Limitations - History of Present Illness Initial comments: Patient is a 43-year-old female that tells emergency room with complaints of hyperglycemia. Patient states her primary care center here for further evaluation. Patient states she stopped taking her diabetes medication approximately 8 months ago and her sugar has remained high. Patient states initially started metformin 500 mg twice a day. Patient denies side effects to metformin. Patient denies chest pain shortness of breath. Patient denies abdominal pain. Patient denies other physical symptoms except for polyuria/polydipsia and itching to the bottom of her feet. Patient states this morning she had 2 chicken biscuits which caused her blood sugar to be high. -: Sudden Severity scale (0 -10): 0 Improves with: medication, movement, other (diabetic diet) Worsens with: other (poor diet and missed medications) Associated Symptoms: denies: confusion, chest pain, cough, diaphoresis, fever/chills, headaches, loss of appetite, malaise, nausea/vomiting, rash, seizure, shortness of breath, syncope, weakness Treatments Prior to Arrival: none - Related Data Previous Rx's Medication Instructions Recorded Last Taken Type Lisinopril/Hydrochlorothiazide 1 tab PO QDAY #30 tab 02/23/16 Unknown Rx [Zestoretic 20-25 mg] Meclizine [Antivert] 25 mg PO TID PRN #15 tablet 04/23/17 Unknown Rx Ondansetron [Zofran Odt] 4 mg PO TID PRN #15 tab.rapdis 04/23/17 Unknown Rx traMADol [Ultram 50 MG tab] 50 mg PO Q6HR PRN #20 tablet 04/23/17 Unknown Rx ALBUTEROL Inhaler (OR & NICU) 2 puff IH QID PRN #1 inhalation 02/02/18 Unknown Rx [ProAir HFA Inhaler] ALBUTEROL NEB's [Proventil 0.083% 2.5 mg IH TID PRN #60 neb 02/02/18 Unknown Rx NEBS] Azithromycin [Zithromax Z-JASMIN] 1 dose PO DAILY 5 Days tab 02/02/18 Unknown Rx Benzonatate [Tessalon Perles] 100 mg PO Q8HR PRN #30 capsule 02/02/18 Unknown Rx predniSONE [Deltasone] 40 mg PO QDAY 5 Days tab 02/02/18 Unknown Rx Furosemide [Lasix TAB] 20 mg PO QDAY #30 tablet 09/16/18 Unknown Rx Naproxen [Naprosyn TAB] 500 mg PO BID #20 tablet 09/16/18 Unknown Rx glipiZIDE [Glipizide] 5 mg PO DAILY #15 tablet 11/20/18 Unknown Rx Allergies Allergy/AdvReac Type Severity Reaction Status Date / Time No Known Allergies Allergy Verified 04/23/17 17:47 ED Review of Systems ROS: Stated complaint: GLUCOSE HIGH Other details as noted in HPI Constitutional: denies: chills, fever Eyes: denies: eye pain, eye discharge, vision change ENT: denies: ear pain, throat pain Respiratory: denies: cough, shortness of breath, wheezing Cardiovascular: denies: chest pain, palpitations Endocrine: see HPI, increased thirst, increased urine Gastrointestinal: denies: abdominal pain, nausea, diarrhea Genitourinary: denies: urgency, dysuria, discharge Musculoskeletal: denies: back pain, joint swelling, arthralgia Skin: denies: rash, lesions Neurological: denies: headache, weakness, paresthesias Psychiatric: denies: anxiety, depression Hematological/Lymphatic: denies: easy bleeding, easy bruising ED Past Medical Hx - Past Medical History Previous Medical History?: Yes Hx Hypertension: Yes Hx Diabetes: Yes Hx Asthma: No Hx COPD: No Additional medical history: morbid obesity. anemia - Surgical History Past Surgical History?: Yes Additional Surgical History: tubal Ligation - Family History Family history: no significant - Social History Smoking Status: Never Smoker Substance Use Type: None - Medications Home Medications: Home Medications Medication Instructions Recorded Confirmed Last Taken Type Lisinopril/Hydrochlorothiazide 1 tab PO QDAY #30 tab 02/23/16 Unknown Rx [Zestoretic 20-25 mg] Meclizine [Antivert] 25 mg PO TID PRN #15 tablet 04/23/17 Unknown Rx Ondansetron [Zofran Odt] 4 mg PO TID PRN #15 tab.rapdis 04/23/17 Unknown Rx traMADol [Ultram 50 MG tab] 50 mg PO Q6HR PRN #20 tablet 04/23/17 Unknown Rx ALBUTEROL Inhaler (OR & NICU) 2 puff IH QID PRN #1 inhalation 02/02/18 Unknown Rx [ProAir HFA Inhaler] ALBUTEROL NEB's [Proventil 0.083% 2.5 mg IH TID PRN #60 neb 02/02/18 Unknown Rx NEBS] Azithromycin [Zithromax Z-JASMIN] 1 dose PO DAILY 5 Days tab 02/02/18 Unknown Rx Benzonatate [Tessalon Perles] 100 mg PO Q8HR PRN #30 capsule 02/02/18 Unknown Rx predniSONE [Deltasone] 40 mg PO QDAY 5 Days tab 02/02/18 Unknown Rx Furosemide [Lasix TAB] 20 mg PO QDAY #30 tablet 09/16/18 Unknown Rx Naproxen [Naprosyn TAB] 500 mg PO BID #20 tablet 09/16/18 Unknown Rx glipiZIDE [Glipizide] 5 mg PO DAILY #15 tablet 11/20/18 Unknown Rx ED Physical Exam - General Limitations: No Limitations General appearance: alert, in no apparent distress - Head Head exam: Present: atraumatic, normocephalic - Eye Eye exam: Present: normal appearance - ENT ENT exam: Present: mucous membranes moist - Neck Neck exam: Present: normal inspection - Respiratory Respiratory exam: Present: normal lung sounds bilaterally. Absent: respiratory distress - Cardiovascular Cardiovascular Exam: Present: regular rate, normal rhythm. Absent: systolic murmur, diastolic murmur, rubs, gallop - GI/Abdominal GI/Abdominal exam: Present: soft, normal bowel sounds - Extremities Exam Extremities exam: Present: normal inspection, full ROM, normal capillary refill. Absent: tenderness, pedal edema, joint swelling, calf tenderness - Back Exam Back exam: Present: normal inspection - Neurological Exam Neurological exam: Present: alert, oriented X3 - Psychiatric Psychiatric exam: Present: normal affect, normal mood - Skin Skin exam: Present: warm, dry, intact, normal color. Absent: rash ED Course Vital Signs 11/20/18 11/20/18 16:08 19:00 Temperature 97.8 F Pulse Rate 76 78 Respiratory 16 16 Rate Blood Pressure 124/88 Blood Pressure 140/68 [Left] O2 Sat by Pulse 100 98 Oximetry - Reevaluation(s) Reevaluation #1: Labs reviewed and discussed with patient. Patient is stable for discharge. Patient given discharge instructions. . Patient will be given diabetes instructions. Patient will also be given a prescription for glipizide. She given medication instructions. Patient given diabetic diet instructions. Patient voiced understanding of discharge instructions and return to ER instructions 11/20/18 17:39 Reevaluation #2: Discussed all results and plan of care with patient. Patient agrees with plan of care and discharged. Patient to be discharged home. Patient given pre scription for glipizide. Patient did not have any side effects to the glipizide. Patient's last blood sugar at 336. Patient denies dizziness. Patient denies blurry vision. Patient denies chest pain or shortness of breath. Patient states the itching has improved with Zyrtec. 11/20/18 18:57 ED Medical Decision Making - Lab Data Result diagrams: 11/20/18 16:24 11/20/18 16:24 - Medical Decision Making Patient is a 43-year-old female that presents to emergency room with complaints of hyperglycemia. Patient seen is secondary to noncompliance with diabetes diet and noncompliance with diabetes medications. Patient recently restarted on metformin 500 mg twice a day. Patient will continue taking metformin. Glipizide will be added to patient's regimen. Patient given discharge instructions. Patient is stable for discharge. Labs review patient. All labs reviewed. Labs unremarkable except for hyperglycemia and secondary hypernatremia. - Differential Diagnosis noncompliance. Diabetes. Hyperglycemia Critical care attestation.: If time is entered above; I have spent that time in minutes in the direct care of this critically ill patient, excluding procedure time. ED Disposition Clinical Impression: Hyperglycemia, Medical non-compliance Diabetes Qualifiers: Diabetes mellitus type: type 2 Diabetes mellitus senior living insulin use: without ferry terminal agent use Diabetes mellitus complication status: without complication Qualified Code(s): E11.9 - Type 2 diabetes mellitus without complications Disposition: DC-01 TO HOME OR SELFCARE Is pt being admited?: No Does the pt Need Aspirin: No Condition: Stable Instructions: How to Check Your Blood Sugar (ED), Diabetic Foot Care (ED), Diabetes Mellitus Type 2 in Adults (ED), Meal Planning with Diabetes Exchanges (DC), Hypertension (ED) Additional Instructions: Patient to follow-up with primary care in 2-3 days. Patient to follow up with body sander in 2-3 days. Patient to return to your condition worsens. Patient take all meds as directed. Patient to start glipizide as directed. Patient to take Tylenol when necessary for pain. Patient increase water. P atient is a diabetic diet Prescriptions: glipiZIDE [Glipizide] 5 mg PO DAILY #15 tablet Referrals: ZAID RM MD [Primary Care Provider] - 3-5 Days Time of Disposition: 17:44
[2018-11-20] MEDS ORDERED: GLUCOTROL PO ONE (17:45)
[2018-11-20] MEDS ORDERED: CLARITIN PO ONE (18:07)
[2018-11-20 19:01] VITALS: BP 140/68
== END 2018-11-20 19:01 | disposition home or self-care (01) ==
LOC: ED 15:52
DX: E11.65 Type 2 diabetes mellitus with hyperglycemia (principal); I10 Essential (primary) hypertension; E66.01 Morbid (severe) obesity due to excess calories; Z68.43 Body mass index [BMI] 50.0-59.9, adult; Z98.51 Tubal ligation status; Z86.2 Personal history of diseases of the blood and blood-forming organs and certain disorders involving the immune mechanism; Z79.899 Other long term (current) drug therapy
CPT/HCPCS: 36415; 80048; 81001; 82805; 82962; 84703; 85025

== ENCOUNTER 2018-12-24 14:32 | Emergency (ER) | payer MEDICAID, OTHER ==
[2018-12-24 14:42] VITALS: BP 151/96
--- NOTE | 2018-12-24 14:44 | Emergency Department Report ---
Blank Doc - Documentation Documentation: Fall yesterday night. Slipped on grease. C/o left knee pain, rt shoulder pain and lower back pain. This initial assessment diagnostic orders/clinical plan/treatment (s) is/Are subject change based on patient's health status, clinical progression and re- assessment by fellow clinical providers in the ED. Further treatment and work-up at subsequent clinical providers discretion. Patient/guardians urged not to elope from their condition may be serious if not clinically assessed and managed. Initial order include:
--- NOTE | 2018-12-24 16:35 | Emergency Department Report ---
HPI - General Chief Complaint: Back Pain/Injury Time Seen by Provider: 12/24/18 14:40 - HPI HPI: This is a 43-year-old female presents to ED today complaining about lower back pain status post fall. Patient states that she slipped and fell on some grease and was on the floor accidentally. Patient denies any head or neck or loss of consciousness after incident. Patient was able to get up after the incident. ED Past Medical Hx - Past Medical History Hx Hypertension: Yes Hx Diabetes: Yes Hx Asthma: No Hx COPD: No Additional medical history: morbid obesity. anemia - Surgical History Additional Surgical History: tubal Ligation - Social History Smoking Status: Never Smoker Substance Use Type: None - Medications Home Medications: Home Medications Medication Instructions Recorded Confirmed Last Taken Type Lisinopril/Hydrochlorothiazide 1 tab PO QDAY #30 tab 02/23/16 Unknown Rx [Zestoretic 20-25 mg] Meclizine [Antivert] 25 mg PO TID PRN #15 tablet 04/23/17 Unknown Rx ALBUTEROL Inhaler (OR & NICU) 2 puff IH QID PRN #1 inhalation 02/02/18 Unknown Rx [ProAir HFA Inhaler] ALBUTEROL NEB's [Proventil 0.083% 2.5 mg IH TID PRN #60 neb 02/02/18 Unknown Rx NEBS] Furosemide [Lasix TAB] 20 mg PO QDAY #30 tablet 09/16/18 Unknown Rx glipiZIDE [Glipizide] 5 mg PO DAILY #15 tablet 11/20/18 Unknown Rx Cyclobenzaprine [Flexeril] 10 mg PO QHS PRN #20 tablet 12/24/18 Unknown Rx Ibuprofen [Motrin] 800 mg PO Q8HR #30 tablet 12/24/18 Unknown Rx ED Review of Systems ROS: Stated complaint: DIZZY/BACK PAIN Other details as noted in HPI Comment: All other systems reviewed and negative Physical Exam - Physical Exam Vital Signs: Vital Signs 12/24/18 14:40 Temperature 97.8 F Pulse Rate 79 Respiratory 18 Rate Blood Pressure 151/96 O2 Sat by Pulse 99 Oximetry Physical Exam: GENERAL: Alert and oriented x3, no apparent distress, Normal Gait, atraumatic. HEAD: Head is normocephalic and a-traumatic. NECK: Supple. Non edematous, No lymphadenopathy or thyromegaly. No C-spine tenderness, full range of motion LUNGS: Symetrical with respiration, No wheezing, no rales or crackles, CTAB. HEART: S1, S2 present, regular rate and rhythm without murmur, no rubs, no gallops. Non tender to palpation BACK: Full range of motion, no spinal tenderness, Tenderness to palpation of the trapezius muscles and latissimus dorsi muscles of the back NEUROLOGIC: The patient is cooperative with no focal neurologic deficits. SKIN: Warm and dry, No lesions, No ulceration or induration present. ED Course Vital Signs 12/24/18 14:40 Temperature 97.8 F Pulse Rate 79 Respiratory 18 Rate Blood Pressure 151/96 O2 Sat by Pulse 99 Oximetry ED Medical Decision Making - Radiology Data Radiology results: report reviewed, image reviewed PROCEDURE: XR SPINE LUMBOSACRAL 2-3V TECHNIQUE: Frontal and lateral views lumbar spine HISTORY: fall with back pain COMPARISONS: None FINDINGS: Visualization of bone detail is somewhat limited by artifact created by large body habitus. Bony alignment is normal. The vertebral heights are maintained. There appears to be loss of height of the L5-S1 disc. There is no plain film evidence of fracture or subluxation. The paraspinous soft tissues are unremarkable. IMPRESSION: 1. Study somewhat degraded by artifact created by large body habitus. 2. No evidence of fracture or subluxation. However, lumbar spine fractures can be missed with plain film imaging. If there is a clinical concern for fracture, CT imaging would be helpful. 3. Appearance of degenerative disc change L5-S1 level. This document is electronically signed by Christine Rosario MD., December 24 2018 04:18:17 PM ET Transcribed By: ED Dictated By: CHRISTINE ROSARIO MD Electronically Authenticated By: CHRISTINE ROSARIO MD Signed Date/Time: 12/24/18 8445 - Medical Decision Making 39-year-old female presents to ED with myalgia is status post accidental slip and fall ED course: Patient received motrin for pain control. xrays completed: no acute process Vital signs are normal patient is in no acute distress Discussed with patient follow-up with primary care physician. Discussed the patient and take medications as prescribed. Patient has no neurological deficit. Patient is alert and oriented 3 and understands all instructions given. Discussed drowsiness effect of Flexeril makes her drowsy and not to operate machinery while taking flexeril Critical care attestation.: If time is entered above; I have spent that time in minutes in the direct care of this critically ill patient, excluding procedure time. ED Disposition Clinical Impression: Lumbar strain Disposition: DC-01 TO HOME OR SELFCARE Is pt being admited?: No Does the pt Need Aspirin: No Condition: Stable Instructions: Muscle Strain (ED), Low Back Strain (ED) Additional Instructions: Make sure to follow up with the primary care physician as discussed. Take all your medications as you've been prescribed. If you have any worsening symptoms or develop new symptoms please return to ED immediately. Prescriptions: Cyclobenzaprine [Flexeril] 10 mg PO QHS PRN #20 tablet PRN Reason: Muscle Spasm Ibuprofen [Motrin] 800 mg PO Q8HR #30 tablet Referrals: PRIMARY CAREMD [Primary Care Provider] - 3-5 Days MAI GREENE MD [Referring] - 3-5 Days [facility] [Outside] - 3-5 Days Forms: Work/School Release Form(ED)
--- NOTE | 2018-12-24 16:56 | XRay Report ---
PROCEDURE: XR SHOULDER 2+V RT TECHNIQUE: Frontal and Y views right shoulder HISTORY: fall with shoulder pain COMPARISONS: None FINDINGS: There is no evidence of fracture or subluxation. There is evidence of degenerative change of the acromioclavicular joint and glenohumeral joint. The soft tissues are unremarkable. IMPRESSION: 1. No evidence of fracture or subluxation. 2. Degenerative joint change. This document is electronically signed by Christine Rosario MD., December 24 2018 04:15:06 PM ET
--- NOTE | 2018-12-24 16:56 | XRay Report ---
PROCEDURE: XR SPINE LUMBOSACRAL 2-3V TECHNIQUE: Frontal and lateral views lumbar spine HISTORY: fall with back pain COMPARISONS: None FINDINGS: Visualization of bone detail is somewhat limited by artifact created by large body habitus. Bony alignment is normal. The vertebral heights are maintained. There appears to be loss of height of the L5-S1 disc. There is no plain film evidence of fracture or subluxation. The paraspinous soft tissues are unremarkable. IMPRESSION: 1. Study somewhat degraded by artifact created by large body habitus. 2. No evidence of fracture or subluxation. However, lumbar spine fractures can be missed with plain f ilm imaging. If there is a clinical concern for fracture, CT imaging would be helpful. 3. Appearance of degenerative disc change L5-S1 level. This document is electronically signed by Christine Rosario MD., December 24 2018 04:18:17 PM ET
--- NOTE | 2018-12-24 16:56 | XRay Report ---
PROCEDURE: XR KNEE 3V LT TECHNIQUE: Frontal, lateral, oblique views left knee HISTORY: fall with knee pain COMPARISONS: None FINDINGS: There is no evidence of fracture or subluxation. There is degenerative change of the tibiofemoral joint, medial greater than lateral, and of the gómez lofemoral joint with osteophyte formation. The soft tissues are unremarkable. IMPRESSION: 1. No evidence of fracture or subluxation. 2. Degenerative joint change. This document is electronically signed by Christine Rosario MD., December 24 2018 04:13:27 PM ET
== END 2018-12-24 16:59 | disposition home or self-care (01) ==
LOC: ED 14:32
DX: S39.012A Strain of muscle, fascia and tendon of lower back, initial encounter (principal); I10 Essential (primary) hypertension; E11.9 Type 2 diabetes mellitus without complications; D64.9 Anemia, unspecified; Z98.51 Tubal ligation status; W01.0XXA Fall on same level from slipping, tripping and stumbling without subsequent striking against object, initial encounter; Y93.89 Activity, other specified; Y92.89 Other specified places as the place of occurrence of the external cause; Y99.8 Other external cause status
CPT/HCPCS: 72100

== ENCOUNTER 2019-06-28 18:40 | Emergency (ER) | payer MEDICAID ==
--- NOTE | 2019-06-28 19:25 | Event Note ---
ED Screening Note Date of service: 06/28/19 Time: 19:22 ED Screening Note: 44 y o f presents to ED cc of having a yeast infection as well as right calf swelling and pain This initial assessment/diagnostic orders/clinical plan/treatment(s) is/are subject to change based on patients health status, clinical progression and re- assessment by fellow clinical providers in the ED. Further treatment and workup at subsequent clinical providers discretion. Patient/guardian urged not to elope from the ED as their condition may be serious if not clinically assessed and managed. Initial orders include: DOppler
--- NOTE | 2019-06-28 20:41 | Vascular Lab Report ---
VL venous duplex LE LT INDICATION / CLINICAL INFORMATION: swelling/ pain. Graft Doppler ultrasound and spectral analysis was performed on the left lower extrem ity COMPARISON: None available. FINDINGS: The left common femoral, superficial femoral, popliteal and calf veins were identified. The veins are all compressible no obvious thrombus is seen. Normal Doppler flow seen in each vessel. There is a 1. 2 cm lymph node in the left groin IMPRESSION: No evidence of deep venous thrombosis of the left lower extremity. 1.2 cm lymph node in the left groi n Signer Name: Redd SARKAR Signed: 06/28/2019 8:37 PM Workstation Name: [id number]
[2019-06-28] MEDS ORDERED: PERCOCET 5/325 PO ONE (22:43)
[2019-06-28] MEDS ORDERED: ZOFRAN ODT PO ONE (22:43)
[2019-06-28] MEDS ORDERED: TORADOL IM ONE (22:46)
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
[2019-06-28 23:09] VITALS: BP 167/104
== END 2019-06-28 23:07 | disposition home or self-care (01) ==
LOC: ED 18:40
DX: S86.912A Strain of unspecified muscle(s) and tendon(s) at lower leg level, left leg, initial encounter (principal); M17.12 Unilateral primary osteoarthritis, left knee; G89.29 Other chronic pain; I10 Essential (primary) hypertension; E11.9 Type 2 diabetes mellitus without complications; E66.01 Morbid (severe) obesity due to excess calories; Z68.43 Body mass index [BMI] 50.0-59.9, adult; Z79.4 Long term (current) use of insulin; Z79.899 Other long term (current) drug therapy; Z79.1 Long term (current) use of non-steroidal anti-inflammatories (NSAID); Z86.2 Personal history of diseases of the blood and blood-forming organs and certain disorders involving the immune mechanism; Z98.51 Tubal ligation status; V89.2XXA Person injured in unspecified motor-vehicle accident, traffic, initial encounter; Y93.89 Activity, other specified; Y92.488 Other paved roadways as the place of occurrence of the external cause; Y99.8 Other external cause status
CPT/HCPCS: 29505; 93971; 96372; 99284; J1885; Q0162

== ENCOUNTER 2019-07-22 21:57 | Emergency (ER) | payer OTHER, MEDICAID ==
[2019-07-22 22:04] VITALS: BP 149/105
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
[2019-07-22] MEDS ORDERED: IBUPROFEN 800 MG TAB PO ONE (23:25)
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
== END 2019-07-23 01:22 | disposition home or self-care (01) ==
LOC: ED 21:57
DX: S86.912A Strain of unspecified muscle(s) and tendon(s) at lower leg level, left leg, initial encounter (principal); S13.4XXA Sprain of ligaments of cervical spine, initial encounter; S39.012A Strain of muscle, fascia and tendon of lower back, initial encounter; I10 Essential (primary) hypertension; E11.9 Type 2 diabetes mellitus without complications; Z86.2 Personal history of diseases of the blood and blood-forming organs and certain disorders involving the immune mechanism; E66.01 Morbid (severe) obesity due to excess calories; Z68.37 Body mass index [BMI] 37.0-37.9, adult; Z98.51 Tubal ligation status; Z79.899 Other long term (current) drug therapy; Z79.1 Long term (current) use of non-steroidal anti-inflammatories (NSAID); V89.2XXA Person injured in unspecified motor-vehicle accident, traffic, initial encounter; Y93.89 Activity, other specified; Y92.488 Other paved roadways as the place of occurrence of the external cause; Y99.8 Other external cause status
CPT/HCPCS: 72040; 72100; 99283

== ENCOUNTER 2019-10-02 00:21 | Emergency (ER) | payer OTHER, MEDICAID ==
[2019-10-02 00:36] VITALS: BP 150/98
== END 2019-10-02 01:00 | disposition left against medical advice (07) ==
LOC: ED 00:21
DX: Z04.1 Encounter for examination and observation following transport accident (principal); Z53.21 Procedure and treatment not carried out due to patient leaving prior to being seen by health care provider

== ENCOUNTER 2020-05-15 15:17 | Emergency (ER) | payer MEDICAID ==
[2020-05-15 16:07] VITALS: BP 139/87
--- NOTE | 2020-05-15 16:50 | Emergency Department Report ---
Blank Doc - Documentation Documentation: This is a 45-year-old female that presents with abdominal pain with n/v. This initial assessment/diagnostic orders/clinical plan/treatment(s) is/are subject to change based on patient's health status, clinical progression and re- assessment by fellow clinical providers in the ED. Further treatment and workup at subsequent clinical providers discretion. Patient/guardians urged not to elope from the ED as their condition may be serious if not clinically assessed and managed. Initial orders include: 1- Patient sent to [facility] for further evaluation and treatment 2- labs 3- UA
[2020-05-15 18:37] LABS: Basophils % (Auto) 0.1 % (0.0-1.8); Eosinophils # (Auto) 0.1 K/mm3 (0.0-0.4); Eosinophils % (Auto) 0.4 % (0.0-4.3); Hemoglobin 12.8 gm/dl (10.1-14.3); Lymphocytes % (Auto) 16.8 % (13.4-35.0); Mean Corpuscular HGB Conc 31 % (30-34); Mean Corpuscular Volume 82 fl (79-97); Monocytes # (Auto) 0.3 K/mm3 (0.0-0.8); Monocytes % (Auto) 2.7 % (0.0-7.3); Platelet Count 396 K/mm3 (140-440); Red Blood Count 5.02 M/mm3 (3.65-5.03)
[2020-05-15 19:08] LABS: Alanine Aminotransferase 13 units/L (7-56); Albumin 4.2 g/dL (3.9-5); BUN/Creatinine Ratio 14; Blood Urea Nitrogen 10 mg/dL (7-17); Calcium 9.4 mg/dL (8.4-10.2); Hemolysis Index 0
== END 2020-05-15 23:50 | disposition left against medical advice (07) ==
LOC: ED 15:17
DX: R10.9 Unspecified abdominal pain (principal); Z53.21 Procedure and treatment not carried out due to patient leaving prior to being seen by health care provider
CPT/HCPCS: 36415; 80053; 83690; 85025

== ENCOUNTER 2020-09-23 19:08 | Emergency (ER) | payer OTHER, MEDICAID ==
[2020-09-23 19:21] VITALS: BP 154/96
--- NOTE | 2020-09-23 19:53 | XRay Report ---
RIGHT ANKLE 4 VIEW(S) INDICATION / CLINICAL INFORMATION: RT ankle pain COMPARISON: None available. FINDINGS: BONES / JOINT(S): No acute fracture or subluxation. Ankle mortise is symmetric. No significant arthri tis. SOFT TISSUES: No significant abnormality. ADDITIONAL FINDINGS: None. IMPRESSION: No acute osseous findings in the right ankle. Signer Name: Edenilson Becerra MD Signed: 09/23/2020 7:49 PM Workstation Name: [id number]
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
== END 2020-09-23 22:31 | disposition home or self-care (01) ==
LOC: ED 19:08
DX: S93.401A Sprain of unspecified ligament of right ankle, initial encounter (principal); G43.009 Migraine without aura, not intractable, without status migrainosus; I10 Essential (primary) hypertension; E11.9 Type 2 diabetes mellitus without complications; J45.909 Unspecified asthma, uncomplicated; Z98.51 Tubal ligation status; Z79.84 Long term (current) use of oral hypoglycemic drugs; Z79.899 Other long term (current) drug therapy; V89.2XXA Person injured in unspecified motor-vehicle accident, traffic, initial encounter; Y93.89 Activity, other specified; Y92.410 Unspecified street and highway as the place of occurrence of the external cause; Y99.8 Other external cause status

== ENCOUNTER 2020-10-01 01:17 | Emergency (ER) | payer MEDICAID, OTHER ==
[2020-10-01] MEDS ORDERED: ONDANSETRON 4 MG ODT TAB PO ONE (02:24)
[2020-10-01] MEDS ORDERED: oxyCODONE /ACETAMINOPHEN 5-325MG TAB PO ONE (02:24)
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
[2020-10-01 03:27] VITALS: BP 140/87
== END 2020-10-01 03:26 | disposition home or self-care (01) ==
LOC: ED 01:17
DX: M62.830 Muscle spasm of back (principal); M54.2 Cervicalgia; M54.5 Low back pain; I10 Essential (primary) hypertension; E11.9 Type 2 diabetes mellitus without complications; G43.909 Migraine, unspecified, not intractable, without status migrainosus; J45.909 Unspecified asthma, uncomplicated; Z87.891 Personal history of nicotine dependence; Z98.51 Tubal ligation status; Z79.84 Long term (current) use of oral hypoglycemic drugs; Z79.899 Other long term (current) drug therapy; V09.9XXA Pedestrian injured in unspecified transport accident, initial encounter; Y93.89 Activity, other specified; Y92.410 Unspecified street and highway as the place of occurrence of the external cause; Y99.8 Other external cause status
CPT/HCPCS: 99282; Q0162

== ENCOUNTER 2021-04-20 18:21 | Emergency (ER) | payer MEDICAID ==
[2021-04-20] MEDS ORDERED: SODIUM CHLORIDE 0.9% 1000 ML 1,000 ML IV ONE (22:32)
[2021-04-20] MEDS ORDERED: CLINDAMYCIN 600 MG/50 mL 600 MG/50 ML BAG IV ONE (22:33)
[2021-04-20] MEDS ORDERED: KETOROLAC 30 MG/1 ML INJ IV ONE (22:33)
[2021-04-20] MEDS ORDERED: INSULIN REGULAR, HUMAN 100 UNITS/1 ML IV ONE (22:34)
--- NOTE | 2021-04-20 22:45 | Emergency Department Report ---
ED General Adult HPI - General Chief complaint: Hyperglycemia Stated complaint: HYPERTENSIVE Time Seen by Provider: 04/20/21 22:12 Source: patient Mode of arrival: Ambulatory Limitations: No Limitations - History of Present Illness Initial comments: Patient is a 46-year-old F [place] female who is presenting with elevated glucose level. Patient states she ran out of her oral antihyperglycemic medications several weeks ago. States she took her blood glucose today and read in the 400s. She also has run out of her blood pressure medicines as well. States she feels as though she is getting worse because now she has a area of swelling to the right abdomen that she feels as though is infected. Patient has some mild urinary frequency but no dysuria. She denies nausea vomiting diarrhea cough cold or congestion. States she is just been feeling weak and tired the last several days. Severity scale (0 -10): 10 - Related Data Previous Rx's Medication Instructions Recorded Last Taken Type hydroCHLOROthiazide 12.5 mg PO DAILY #30 cap 07/16/20 Unknown Rx [Hydrochlorothiazide] metFORMIN [Glucophage] 500 mg PO QDAY #30 07/16/20 Unknown Rx Butalb/Acetamin/Caff 50-325-40 1 each PO Q8H PRN #10 tablet 09/23/20 Unknown Rx [Fioricet 50-325-40] Diclofenac Sodium 75 mg PO BID PRN 7 Days #14 09/23/20 Unknown Rx tablet. Acetaminophen [Tylenol] 500 mg PO Q6HR PRN #30 tablet 10/01/20 Unknown Rx methOCARBAMOL [Robaxin TAB] 750 mg PO Q8H PRN #30 tablet 10/01/20 Unknown Rx traMADoL [Ultram] 50 mg PO Q6HR PRN #12 tablet 10/01/20 Unknown Rx Clindamycin [Clindamycin CAP] 300 mg PO Q8H #30 cap 04/21/21 Unknown Rx Ketorolac [Toradol] 10 mg PO Q6H PRN #12 tablet 04/21/21 Unknown Rx hydroCHLOROthiazide [HCTZ] 25 mg PO QDAY #30 tablet 04/21/21 Unknown Rx metFORMIN [Glucophage] 500 mg PO BID #60 tablet 04/21/21 Unknown Rx Allergies Allergy/AdvReac Type Severity Reaction Status Date / Time No Known Allergies Allergy Verified 12/24/18 14:40 ED Review of Systems ROS: Stated complaint: HYPERTENSIVE Other details as noted in HPI Comment: All other systems reviewed and negative ED Past Medical Hx - Past Medical History Previous Medical History?: Yes Hx Hypertension: Yes Hx Diabetes: Yes Hx Headaches / Migraines: Yes Hx Asthma: Yes Hx COPD: No Additional medical history: morbid obesity. anemia - Surgical History Past Surgical History?: Yes Additional Surgical History: tubal Ligation - Social History Smoking Status: Never Smoker - Medications Home Medications: Home Medications Medication Instructions Recorded Confirmed Last Taken Type hydroCHLOROthiazide 12.5 mg PO DAILY #30 cap 07/16/20 Unknown Rx [Hydrochlorothiazide] metFORMIN [Glucophage] 500 mg PO QDAY #30 07/16/20 Unknown Rx Butalb/Acetamin/Caff 50-325-40 1 each PO Q8H PRN #10 tablet 09/23/20 Unknown Rx [Fioricet 50-325-40] Diclofenac Sodium 75 mg PO BID PRN 7 Days #14 09/23/20 Unknown Rx tablet.dr Acetaminophen [Tylenol] 500 mg PO Q6HR PRN #30 tablet 10/01/20 Unknown Rx methOCARBAMOL [Robaxin TAB] 750 mg PO Q8H PRN #30 tablet 10/01/20 Unknown Rx traMADoL [Ultram] 50 mg PO Q6HR PRN #12 tablet 10/01/20 Unknown Rx Clindamycin [Clindamycin CAP] 300 mg PO Q8H #30 cap 04/21/21 Unknown Rx Ketorolac [Toradol] 10 mg PO Q6H PRN #12 tablet 04/21/21 Unknown Rx hydroCHLOROthiazide [HCTZ] 25 mg PO QDAY #30 tablet 04/21/21 Unknown Rx metFORMIN [Glucophage] 500 mg PO BID #60 tablet 04/21/21 Unknown Rx ED Physical Exam - General Limitations: No Limitations General appearance: alert, in no apparent distress - Head Head exam: Present: atraumatic, normocephalic - Eye Eye exam: Present: normal appearance - ENT ENT exam: Present: mucous membranes moist - Neck Neck exam: Present: normal inspection - Respiratory Respiratory exam: Present: normal lung sounds bilaterally. Absent: respiratory distress, wheezes, rales, rhonchi - Cardiovascular Cardiovascular Exam: Present: regular rate, normal rhythm, normal heart sounds. Absent: systolic murmur, diastolic murmur, rubs, gallop - GI/Abdominal GI/Abdominal exam: Present: soft, tenderness (Patient with a approximately 4 x 5 cm area of erythema and induration just right of the umbilicus. No obvious fluctuance), normal bowel sounds. Absent: distended, guarding, rebound - Extremities Exam Extremities exam: Present: normal inspection - Back Exam Back exam: Present: normal inspection - Neurological Exam Neurological exam: Present: alert, oriented X3 - Psychiatric Psychiatric exam: Present: normal affect, normal mood - Skin Skin exam: Present: warm, dry, intact, normal color. Absent: rash ED Course Vital Signs 04/20/21 04/20/21 18:51 23:21 Temperature 98.0 F Pulse Rate 103 H 87 Respiratory 18 16 Rate Blood Pressure 138/87 145/95 [Right] O2 Sat by Pulse 97 98 Oximetry - Reevaluation(s) Reevaluation #1: 04/20/21 23:02 Performed a bedside ultrasound on the patient's cellulitic area. There was 1/2 cm thick area of fluid. Did not feel as though this is large enough to open the area and drain. ED Medical Decision Making - Lab Data Result diagrams: 04/20/21 22:48 04/20/21 22:48 Lab Results 04/20/21 04/20/21 04/20/21 Range/Units 18:49 22:48 22:48 WBC 7.4 (4.5-11.0) K/mm3 RBC 4.93 (3.65-5.03) M/mm3 Hgb 13.1 (10.1-14.3) gm/dl Hct 39.0 (30.3-42.9) % MCV 79 (79-97) fl MCH 27 L (28-32) pg MCHC 34 (30-34) % RDW 14.1 (13.2-15.2) % Plt Count 316 (140-440) K/mm3 Lymph % (Auto) 27.7 (13.4-35.0) % [place] % (Auto) 5.5 (0.0-7.3) % Eos % (Auto) 1.2 (0.0-4.3) % Baso % (Auto) 0.2 (0.0-1.8) % Lymph # (Auto) 2.1 (1.2-5.4) K/mm3 [place] # (Auto) 0.4 (0.0-0.8) K/mm3 Eos # (Auto) 0.1 (0.0-0.4) K/mm3 Baso # (Auto) 0.0 (0.0-0.1) K/mm3 Seg Neutrophils % 65.4 (40.0-70.0) % Seg Neutrophils # 4.9 (1.8-7.7) K/mm3 Sodium 136 L (137-145) mmol/L Potassium 4.1 (3.6-5.0) mmol/L Chloride 99.1 (98-107) mmol/L Carbon Dioxide 26 (22-30) mmol/L Anion Gap 15 mmol/L BUN 9 (7-17) mg/dL Creatinine 0.8 (0.6-1.2) mg/dL Estimated GFR > 60 ml/min BUN/Creatinine Ratio 11 % Glucose 364 H (65-100) mg/dL POC Glucose 355 H (70-105) mg/dL Calcium 8.9 (8.4-10.2) mg/dL - Medical Decision Making Patient is white count within normal limits. Patient given dose of IV clindamycin for the cellulitis on her abdomen and will be discharged with clindamycin for the next 10 days. Patient's blood pressure did rise but she has no endorgan damage. We will start the patient back on her hydrochlorothiazide. Patient also started back on her Metformin. She received a bag of normal saline. Glucose in the 250-260 range. No evidence of DKA on her laboratory studies. Patient be stable for discharge. Critical care attestation.: If time is entered above; I have spent that time in minutes in the direct care of this critically ill patient, excluding procedure time. ED Disposition Clinical Impression: Hyperglycemia, Medical non-compliance, Asymptomatic hypertensive urgency Cellulitis Qualifiers: Site of cellulitis: trunk Site of cellulitis of trunk: abdominal wall Qualified Code(s): L03.311 - Cellulitis of abdominal wall Disposition: DC- TO HOME OR SELFCARE Is pt being admited?: No Does the pt Need Aspirin: No Condition: Stable Instructions: Hyperglycemia, [id number], Cellulitis, Adult, [id number], Hyp ertension, Adult, [id number], Managing Your Hypertension Referrals: OZZY JAIME MD [Primary Care Provider] - 3-5 Days Time of Disposition: 00:03
[2021-04-20 23:15] LABS: Basophils % (Auto) 0.2 % (0.0-1.8); Eosinophils # (Auto) 0.1 K/mm3 (0.0-0.4); Eosinophils % (Auto) 1.2 % (0.0-4.3); Hemoglobin 13.1 gm/dl (10.1-14.3); Lymphocytes # (Auto) 2.1 K/mm3 (1.2-5.4); Lymphocytes % (Auto) 27.7 % (13.4-35.0); Mean Corpuscular HGB Conc 34 % (30-34); Mean Corpuscular Volume 79 fl (79-97); Monocytes # (Auto) 0.4 K/mm3 (0.0-0.8); Monocytes % (Auto) 5.5 % (0.0-7.3); Platelet Count 316 K/mm3 (140-440); Red Blood Count 4.93 M/mm3 (3.65-5.03); Red Cell Distribution Width 14.1 % (13.2-15.2)
[2021-04-20 23:27] LABS: BUN/Creatinine Ratio 11; Blood Urea Nitrogen 9 mg/dL (7-17); Calcium 8.9 mg/dL (8.4-10.2); Hemolysis Index 0
[2021-04-21 01:10] VITALS: BP 157/85
== END 2021-04-21 01:10 | disposition home or self-care (01) ==
LOC: ED 18:21
DX: L03.311 Cellulitis of abdominal wall (principal); E11.65 Type 2 diabetes mellitus with hyperglycemia; I16.0 Hypertensive urgency; Z91.19 Patient's noncompliance with other medical treatment and regimen; G43.909 Migraine, unspecified, not intractable, without status migrainosus; J45.909 Unspecified asthma, uncomplicated; Z98.51 Tubal ligation status; Z79.2 Long term (current) use of antibiotics; Z79.84 Long term (current) use of oral hypoglycemic drugs; Z79.899 Other long term (current) drug therapy
CPT/HCPCS: 36415; 80048; 82962; 85025; 96365; 96375; 99283; J1885; J7030; J1815

== ENCOUNTER 2021-04-24 16:45 | Inpatient (IN) | payer MEDICAID ==
[2021-04-24] MEDS ORDERED: ONDANSETRON 4 MG ODT TAB PO ONE (20:26)
[2021-04-24] MEDS ORDERED: ONDANSETRON 4 MG ODT TAB ONE (20:27)
[2021-04-24] MEDS ORDERED: HYDROmorphone 1 MG/1 ML INJ IV ONE (22:28)
[2021-04-24] MEDS ORDERED: VANCOMYCIN PHARMACY TO DOSE IV SCH (23:00)
[2021-04-24] MEDS: VANCOMYCIN 2,000 MG in SODIUM CHLORIDE 0.9% 500 ML 500 ML IV ONE (23:18)
[2021-04-24 23:22] LABS: Alanine Aminotransferase 13 units/L (7-56); Albumin 3.4 g/dL (3.9-5); BUN/Creatinine Ratio 9; Blood Urea Nitrogen 7 mg/dL (7-17); Calcium 8.6 mg/dL (8.4-10.2); Hemolysis Index 32
[2021-04-24] MEDS ORDERED: INSULIN REGULAR, HUMAN 100 UNITS/1 ML IV ONE (23:32)
[2021-04-24] MEDS ORDERED: SODIUM CHLORIDE 0.9% 1000 ML 1,000 ML IV ONE (23:32)
--- NOTE | 2021-04-24 23:38 | Emergency Department Report ---
- General Chief complaint: Skin/Abscess/Foreign Body Stated complaint: CIST ON STOMACH Time Seen by Provider: 04/24/21 22:27 Source: patient Mode of arrival: Ambulatory Limitations: No Limitations - History of Present Illness Initial comments: Patient is a 46-year-old female who presents emergency room with complaints of a possible abscess to the abdomen that began a week ago. She states initially it started as a small lump which she reports that she used alcohol a needle and and had a small amount of drainage. Patient was evaluated in the emergency department on 04/20/2021 and diagnosed with cellulitis of the abdominal wall at that time and was started on clindamycin. She reports that she has been taking the clindamycin as prescribed 3 times a day. She states that it has become more swollen, more red, more warm to touch and she began having a subjective fever last night. She states that she also has associated nausea and has had a couple episodes of vomiting. She denies any drainage or diarrhea. Past medical history of uncontrolled diabetes, hypertension, asthma. No allergies to medications. - Related Data Previous Rx's Medication Instructions Recorded Last Taken Type hydroCHLOROthiazide 12.5 mg PO DAILY #30 cap 07/16/20 Unknown Rx [Hydrochlorothiazide] metFORMIN [Glucophage] 500 mg PO QDAY #30 07/16/20 Unknown Rx Butalb/Acetamin/Caff 50-325-40 1 each PO Q8H PRN #10 tablet 09/23/20 Unknown Rx [Fioricet 50-325-40] Diclofenac Sodium 75 mg PO BID PRN 7 Days #14 09/23/20 Unknown Rx tablet. Acetaminophen [Tylenol] 500 mg PO Q6HR PRN #30 tablet 10/01/20 Unknown Rx methOCARBAMOL [Robaxin TAB] 750 mg PO Q8H PRN #30 tablet 10/01/20 Unknown Rx traMADoL [Ultram] 50 mg PO Q6HR PRN #12 tablet 10/01/20 Unknown Rx Clindamycin [Clindamycin CAP] 300 mg PO Q8H #30 cap 04/21/21 Unknown Rx Ketorolac [Toradol] 10 mg PO Q6H PRN #12 tablet 04/21/21 Unknown Rx hydroCHLOROthiazide [HCTZ] 25 mg PO QDAY #30 tablet 04/21/21 Unknown Rx metFORMIN [Glucophage] 500 mg PO BID #60 tablet 04/21/21 Unknown Rx Allergies Allergy/AdvReac Type Severity Reaction Status Date / Time No Known Allergies Allergy Verified 12/24/18 14:40 Abscess Boil HPI - HPI Chief Complaint: Skin/Abscess/Foreign Body Stated Complaint: CIST ON STOMACH Time Seen by Provider: 04/24/21 22:27 Home Medications: Previous Rx's Medication Instructions Recorded Last Taken Type hydroCHLOROthiazide 12.5 mg PO DAILY #30 cap 07/16/20 Unknown Rx [Hydrochlorothiazide] metFORMIN [Glucophage] 500 mg PO QDAY #30 07/16/20 Unknown Rx Butalb/Acetamin/Caff 50-325-40 1 each PO Q8H PRN #10 tablet 09/23/20 Unknown Rx [Fioricet 50-325-40] Diclofenac Sodium 75 mg PO BID PRN 7 Days #14 09/23/20 Unknown Rx tablet. Acetaminophen [Tylenol] 500 mg PO Q6HR PRN #30 tablet 10/01/20 Unknown Rx methOCARBAMOL [Robaxin TAB] 750 mg PO Q8H PRN #30 tablet 10/01/20 Unknown Rx traMADoL [Ultram] 50 mg PO Q6HR PRN #12 tablet 10/01/20 Unknown Rx Clindamycin [Clindamycin CAP] 300 mg PO Q8H #30 cap 04/21/21 Unknown Rx Ketorolac [Toradol] 10 mg PO Q6H PRN #12 tablet 04/21/21 Unknown Rx hydroCHLOROthiazide [HCTZ] 25 mg PO QDAY #30 tablet 04/21/21 Unknown Rx metFORMIN [Glucophage] 500 mg PO BID #60 tablet 04/21/21 Unknown Rx Allergies/Adverse Reactions: Allergies Allergy/AdvReac Type Severity Reaction Status Date / Time No Known Allergies Allergy Verified 12/24/18 14:40 ED Review of Systems ROS: Stated complaint: CIST ON STOMACH Other details as noted in HPI Comment: All other systems reviewed and negative ED Past Medical Hx - Past Medical History Previous Medical History?: Yes Hx Hypertension: Yes Hx Diabetes: Yes Hx Headaches / Migraines: Yes Hx Asthma: Yes Hx COPD: No Additional medical history: morbid obesity. anemia - Surgical History Past Surgical History?: Yes Additional Surgical History: tubal Ligation - Social History Smoking Status: Never Smoker - Medications Home Medications: Home Medications Medication Instructions Recorded Confirmed Last Taken Type hydroCHLOROthiazide 12.5 mg PO DAILY #30 cap 07/16/20 Unknown Rx [Hydrochlorothiazide] metFORMIN [Glucophage] 500 mg PO QDAY #30 07/16/20 Unknown Rx Butalb/Acetamin/Caff 50-325-40 1 each PO Q8H PRN #10 tablet 09/23/20 Unknown Rx [Fioricet 50-325-40] Diclofenac Sodium 75 mg PO BID PRN 7 Days #14 09/23/20 Unknown Rx tablet.dr Acetaminophen [Tylenol] 500 mg PO Q6HR PRN #30 tablet 10/01/20 Unknown Rx methOCARBAMOL [Robaxin TAB] 750 mg PO Q8H PRN #30 tablet 10/01/20 Unknown Rx traMADoL [Ultram] 50 mg PO Q6HR PRN #12 tablet 10/01/20 Unknown Rx Clindamycin [Clindamycin CAP] 300 mg PO Q8H #30 cap 04/21/21 Unknown Rx Ketorolac [Toradol] 10 mg PO Q6H PRN #12 tablet 04/21/21 Unknown Rx hydroCHLOROthiazide [HCTZ] 25 mg PO QDAY #30 tablet 04/21/21 Unknown Rx metFORMIN [Glucophage] 500 mg PO BID #60 tablet 04/21/21 Unknown Rx ED Physical Exam - General Limitations: No Limitations General appearance: alert, in no apparent distress - Head Head exam: Present: atraumatic, normocephalic - Eye Eye exam: Present: normal appearance - ENT ENT exam: Present: mucous membranes moist - Respiratory Respiratory exam: Present: normal lung sounds bilaterally. Absent: respiratory distress, wheezes, rales, rhonchi, stridor, chest wall tenderness, accessory muscle use, decreased breath sounds, prolonged expiratory - Cardiovascular Cardiovascular Exam: Present: regular rate, normal rhythm, normal heart sounds. Absent: systolic murmur, diastolic murmur, rubs, gallop - Neurological Exam Neurological exam: Present: alert, oriented X3 - Psychiatric Psychiatric exam: Present: normal affect, normal mood - Skin Skin exam: Present: warm, dry, other (there is a 7 cm area of induration, erythema, increased warmth present to the periumbilicus region, no drainage, no opening, no necrosis) ED Course Vital Signs 04/24/21 04/24/21 04/24/21 18:09 22:46 23:16 Temperature 98.9 F Pulse Rate 100 H Respiratory 20 18 18 Rate Blood Pressure 153/94 O2 Sat by Pulse 99 Oximetry - Reevaluation(s) Reevaluation #1: 04/25/21 00:[address] Gutierrez, ER attending advised to give ceftriaxone and admit - Consultations Consultation #1: 04/25/21 00:[address] Goins, general surgeon regarding patient history and results, advised to make patient n.p.o., admit to hospitalist service, advised IV antibiotics she states to discuss with hospitalist regarding IV vancomycin and either IV Zosyn or IV cefepime and she will evaluate patient in the morning 04/25/21 00:[address] Bonilla, hospitalist discussed patient presentation, results, consultation, he advised to give patient IV Zosyn, will accept and resume care of patient, advised to bridge patient to surgical ED Medical Decision Making - Lab Data Result diagrams: 04/24/21 22:46 04/24/21 22:46 Lab Results 04/24/21 04/24/21 04/24/21 Range/Units 22:46 22:46 22:46 WBC 9.5 (4.5-11.0) K/mm3 RBC 4.71 (3.65-5.03) M/mm3 Hgb 12.6 (10.1-14.3) gm/dl Hct 36.8 (30.3-42.9) % MCV 78 L (79-97) fl MCH 27 L (28-32) pg MCHC 34 (30-34) % RDW 13.8 (13.2-15.2) % Plt Count 344 (140-440) K/mm3 Lymph % (Auto) 20.6 (13.4-35.0) % [place] % (Auto) 6.7 (0.0-7.3) % Eos % (Auto) 1.2 (0.0-4.3) % Baso % (Auto) 0.4 (0.0-1.8) % Lymph # (Auto) 2.0 (1.2-5.4) K/mm3 [place] # (Auto) 0.6 (0.0-0.8) K/mm3 Eos # (Auto) 0.1 (0.0-0.4) K/mm3 Baso # (Auto) 0.0 (0.0-0.1) K/mm3 Seg Neutrophils % 71.1 H (40.0-70.0) % Seg Neutrophils # 6.7 (1.8-7.7) K/mm3 Sodium 128 L D (137-145) mmol/L Potassium 3.7 (3.6-5.0) mmol/L Chloride 91.2 L (98-107) mmol/L Carbon Dioxide 25 (22-30) mmol/L Anion Gap 16 mmol/L BUN 7 (7-17) mg/dL Creatinine 0.8 (0.6-1.2) mg/dL Estimated GFR > 60 ml/min BUN/Creatinine Ratio 9 % Glucose 498 H (65-100) mg/dL Lactic Acid 2.00 (0.7-2.0) mmol/L Calcium 8.6 (8.4-10.2) mg/dL Total Bilirubin 0.70 (0.1-1.2) mg/dL AST 15 (5-40) units/L ALT 13 (7-56) units/L Alkaline Phosphatase 127 (35-129) units/L Total Protein 7.4 (6.3-8.2) g/dL Albumin 3.4 L (3.9-5) g/dL Albumin/Globulin Ratio 0.9 % HCG, Qual (Negative) 04/24/21 Range/Units 22:46 WBC (4.5-11.0) K/mm3 RBC (3.65-5.03) M/mm3 Hgb (10.1-14.3) gm/dl Hct (30.3-42.9) % MCV (79-97) fl MCH (28-32) pg MCHC (30-34) % RDW (13.2-15.2) % Plt Count (140-440) K/mm3 Lymph % (Auto) (13.4-35.0) % [place] % (Auto) (0.0-7.3) % Eos % (Auto) (0.0-4.3) % Baso % (Auto) (0.0-1.8) % Lymph # (Auto) (1.2-5.4) K/mm3 [place] # (Auto) (0.0-0.8) K/mm3 Eos # (Auto) (0.0-0.4) K/mm3 Baso # (Auto) (0.0-0.1) K/mm3 Seg Neutrophils % (40.0-70.0) % Seg Neutrophils # (1.8-7.7) K/mm3 Sodium (137-145) mmol/L Potassium (3.6-5.0) mmol/L Chloride (98-107) mmol/L Carbon Dioxide (22-30) mmol/L Anion Gap mmol/L BUN (7-17) mg/dL Creatinine (0.6-1.2) mg/dL Estimated GFR ml/min BUN/Creatinine Ratio % Glucose (65-100) mg/dL Lactic Acid (0.7-2.0) mmol/L Calcium (8.4-10.2) mg/dL Total Bilirubin (0.1-1.2) mg/dL AST (5-40) units/L ALT (7-56) units/L Alkaline Phosphatase (35-129) units/L Total Protein (6.3-8.2) g/dL Albumin (3.9-5) g/dL Albumin/Globulin Ratio % HCG, Qual Negative (Negative) - Radiology Data Radiology results: report reviewed Ordering Physician: ANITA HYLTON Date of Service: 04/24/21 Procedure(s): CT abdomen pelvis w con Accession Number(s): [id number] cc: ANITA HYLTON CT ABDOMEN AND PELVIS WITH IV CONTRAST INDICATION: Patient complains of abd wall cellulitis, possible abscess. Abdominal pain COMPARISON: None available. TECHNIQUE: Axial CT images were obtained through the abdomen and pelvis after 100 mL IV contrast. All CT scans at this location are performed using CT dose reduction for ALARA by means of automated exposure control. FINDINGS -- ABDOMEN: Lung Bases: No acute abnormality. Liver: Hepatomegaly measuring 21 cm craniocaudal.. Gallbladder: Normal. Bile Ducts: Normal. Pancreas: Normal. Spleen: Normal. Adrenals: Normal. Right Kidney and Proximal Ureter: Normal. Left Kidney and Proximal Ureter: Normal. Stomach and Bowel: Normal. Lymph Nodes: No significant adenopathy. Aorta: No significant abnormality. IVC: Normal. Additional Findings: Prominent cellulitis along the right lower quadrant anterior abdominal wall. The to the abdominal wall there is a 5.2 cm partially loculated fluid/gas collection. FINDINGS -- PELVIS: Urinary Bladder and Distal Ureters: Normal. Reproductive Organs: No acute abnormality. Appendix: Normal. Bowel: No acute abnormality. Free Fluid: None. Lymph Nodes: Bilateral inguinal adenopathy. Additional Findings: None. Skeletal System: No acute abnormality. IMPRESSION: Severe cellulitis of the right lower quadrant anterior abdominal wall where there is a 5.3 cm mixed fluid and gas collection concerning for abscess. Signer Name: Joe Hoff MD Signed: 04/25/2021 12:20 AM Workstation Name: [id number] Transcribed By: Dictated By: Joe Hoff MD Electronically Authenticated By: Joe Hoff MD Signed Date/Time: 04/25/2119 DD/ [id number] TD/TT: - Medical Decision Making Patient is a 46-year-old female who presents emergency room with complaints of a possible abscess to the abdomen that began a week ago. She states initially it started as a small lump which she reports that she used alcohol a needle and an d had a small amount of drainage. Patient was evaluated in the emergency department on 04/20/2021 and diagnosed with cellulitis of the abdominal wall at that time and was started on clindamycin. She reports that she has been taking the clindamycin as prescribed 3 times a day. She states that it has become more swollen, more red, more warm to touch and she began having a subjective fever last night. She states that she also has associated nausea and has had a couple episodes of vomiting. She denies any drainage or diarrhea. Past medical history of uncontrolled diabetes, hypertension, asthma. No allergies to medications. vss. on exam: there is a 7 cm area of induration, erythema, increas ed warmth present to the periumbilicus region, no drainage, no opening, no necrosis. Lab significant for dehydration and elevated blood sugar. CT abdomen pelvis with IV contrast: Severe cellulitis of the right lower quadrant anterior abdominal wall where there is a 5.3 cm mixed fluid and gas collection concerning for abscess. Spoke with Dr. Goins, general surgeon regarding patient history and results, advised to make patient n.p.o., admit to hospitalist service, advised IV antibiotics she states to discuss with hospitalist regarding IV vancomycin and either IV Zosyn or IV cefepime and she will evaluate patient in the morning. Spoke with Dr. Bonilla, hospitalist discussed patient presentation, results, consultation, he advised to give patient IV Zosyn, will accept and resume care of patient, advised to bridge patient to 3B surgical. Patient given IV vancomycin and IV Zosyn and admitted to hospitalist service, patient was agreeable with admission. Critical care attestation.: If time is entered above; I have spent that time in minutes in the direct care of this critically ill patient, excluding procedure time. ED Disposition Clinical Impression: Abdominal wall cellulitis, Abdominal wall abscess, Failure of outpatient treatment Uncontrolled diabetes mellitus Qualifiers: Diabetes mellitus type: type 2 Glycemic state: with hyperglycemia Qualified Code(s): E11.65 - Type 2 diabetes mellitus with hyperglycemia Disposition: OP ADMIT IP TO THIS HOSP Is pt being admited?: Yes Does the pt Need Aspirin: No Condition: Fair Instructions: Diabetes Mellitus Type 2 in Adults (ED) Time of Disposition: 00:50 Print Language: DIVEHI
[2021-04-24 23:53] LABS: Basophils % (Auto) 0.4 % (0.0-1.8); Eosinophils # (Auto) 0.1 K/mm3 (0.0-0.4); Eosinophils % (Auto) 1.2 % (0.0-4.3); Hematocrit 36.8 % (30.3-42.9); Hemoglobin 12.6 gm/dl (10.1-14.3); Lymphocytes % (Auto) 20.6 % (13.4-35.0); Mean Corpuscular HGB Conc 34 % (30-34); Mean Corpuscular Volume 78 fl (79-97); Monocytes # (Auto) 0.6 K/mm3 (0.0-0.8); Monocytes % (Auto) 6.7 % (0.0-7.3); Platelet Count 344 K/mm3 (140-440); Red Blood Count 4.71 M/mm3 (3.65-5.03); Red Cell Distribution Width 13.8 % (13.2-15.2)
[2021-04-25] MEDS ORDERED: cefTRIAXone/NS 1 GM/50 ML 1 GM/50 ML BAG IV ONE (00:37)
[2021-04-25] MEDS ORDERED: PIPERACIL/TAZOBACTA 4.5/NS 100 4.5 GM/100 ML VIAL IV ONE (00:46)
[2021-04-25] MEDS ORDERED: HYDROmorphone 1 MG/1 ML INJ IV ONE ×2 (01:51→03:05)
[2021-04-25] MEDS: VANCOMYCIN 2,000 MG in SODIUM CHLORIDE 0.9% 500 ML 500 ML IV ONE (02:29)
[2021-04-25] MEDS ORDERED: ONDANSETRON 4 MG/2 ML INJ IV PRN (04:38)
[2021-04-25] MEDS ORDERED: DEXTROSE 50% IN WATER (25GM) 50 ML SYRINGE IV PRN (04:38)
[2021-04-25] MEDS ORDERED: ACETAMINOPHEN 325 MG TAB PO PRN (04:38)
[2021-04-25] MEDS ORDERED: ALBUTEROL 2.5 MG/3 ML NEBU IH PRN (04:38)
[2021-04-25] MEDS ORDERED: KETOROLAC 10 MG TAB PO PRN (04:40)
[2021-04-25] MEDS ORDERED: BUTALB/ACETAMINOPHEN/CAFFEINE TAB PO PRN (04:40)
[2021-04-25] MEDS ORDERED: hydrALAZINE 20 MG/1 ML INJ IV PRN (04:42)
[2021-04-25] MEDS ORDERED: SODIUM CHLORIDE 0.9% 1000 ML 1,000 ML IV SCH (04:45)
--- NOTE | 2021-04-25 04:47 | History and Physical Report ---
History of Present Illness Date of examination: 04/25/21 Date of admission: 04/25/21 00:49 Chief complaint: Abdominal wall cellulitis abscess History of present illness: 46-year-old female with past medical history of uncontrolled diabetes, hypertension and asthma was brought to the emergency room because of abdominal wall cellulitis and abscess that began a week ago. Initially it started as a small lump which she reports that she used alcohol a needle and and had a small amount of drainage. Patient was evaluated in the emergency department on 04/20/2021 and diagnosed with cellulitis of the abdominal wall at that time and was started on clindamycin. She reports that she has been taking the clindamycin as prescribed 3 times a day. She states that it has become more swollen, more red, more warm to touch and she began having a subjective fever last night. She states that she also has associated nausea and has had a couple episodes of vomiting. She denies any drainage or diarrhea. In the emergency room CT scan of the abdomen pelvis showed severe cellulitis of the right lower quadrant anterior abdominal wall but there is a 5.3 cm mixed fluid and gas collection concerning for abscess Past History Past Medical History: diabetes, hypertension, other (Asthma) Medications and Allergies Allergies Allergy/AdvReac Type Severity Reaction Status Date / Time No Known Allergies Allergy Verified 12/24/18 14:40 Home Medications Medication Instructions Recorded Confirmed Last Taken Type hydroCHLOROthiazide 12.5 mg PO DAILY #30 cap 07/16/20 Unknown Rx [Hydrochlorothiazide] metFORMIN [Glucophage] 500 mg PO QDAY #30 07/16/20 Unknown Rx Butalb/Acetamin/Caff 50-325-40 1 each PO Q8H PRN #10 tablet 09/23/20 Unknown Rx [Fioricet 50-325-40] Diclofenac Sodium 75 mg PO BID PRN 7 Days #14 09/23/20 Unknown Rx tablet Acetaminophen [Tylenol] 500 mg PO Q6HR PRN #30 tablet 10/01/20 Unknown Rx methOCARBAMOL [Robaxin TAB] 750 mg PO Q8H PRN #30 tablet 10/01/20 Unknown Rx traMADoL [Ultram] 50 mg PO Q6HR PRN #12 tablet 10/01/20 Unknown Rx Clindamycin [Clindamycin CAP] 300 mg PO Q8H #30 cap 04/21/21 Unknown Rx Ketorolac [Toradol] 10 mg PO Q6H PRN #12 tablet 04/21/21 Unknown Rx hydroCHLOROthiazide [HCTZ] 25 mg PO QDAY #30 tablet 04/21/21 Unknown Rx metFORMIN [Glucophage] 500 mg PO BID #60 tablet 04/21/21 Unknown Rx Active Meds: Active Medications Vancomycin HCl 2,000 mg/ (Sodium Chloride) 540 mls @ 250 mls/hr IV Q8H [facility] Review of Systems Gastrointestinal: abdominal pain Integumentary: redness, sores, wounds Exam - Constitutional Vitals: Temp Pulse Resp BP Pulse Ox 98.7 F 83 18 137/71 100 04/25/21 03:40 04/25/21 03:40 04/25/21 03:40 04/25/21 03:40 04/25/21 03:40 General appearance: Present: no acute distress, well-nourished - EENT Eyes: Present: PERRL ENT: hearing intact, clear oral mucosa - Neck Neck: Present: supple, normal ROM - Respiratory Respiratory effort: normal Respiratory: bilateral: CTA - Cardiovascular Heart Sounds: Present: S1 & S2. Absent: rub, click - Extremities Extremities: pulses symmetrical, No edema Peripheral Pulses: within normal limits - Abdominal General gastrointestinal: Present: soft, non-tender, non-distended, normal bowel sounds, other (Abdominal wall cellulitis) Female genitourinary: Present: normal - Integumentary Integumentary: Present: clear, warm, dry - Musculoskeletal Musculoskeletal: gait normal, strength equal bilaterally - Psychiatric Psychiatric: appropriate mood/affect, intact judgment & insight - Neurologic Neurologic: CNII-XII intact, moves all extremities Results - Labs CBC & Chem 7: 04/24/21 22:46 04/24/21 22:46 Labs: Laboratory Last Values WBC 9.5 K/mm3 (4.5-11.0) 04/24/21 22:46 RBC 4.71 M/mm3 (3.65-5.03) 04/24/21 22:46 Hgb 12.6 gm/dl (10.1-14.3) 04/24/21 22:46 Hct 36.8 % (30.3-42.9) 04/24/21 22:46 MCV 78 fl (79-97) L 04/24/21 22:46 MCH 27 pg (28-32) L 04/24/21 22:46 MCHC 34 % (30-34) 04/24/21 22:46 RDW 13.8 % (13.2-15.2) 04/24/21 22:46 Plt Count 344 K/mm3 (140-440) 04/24/21 22:46 Lymph % (Auto) 20.6 % (13.4-35.0) 04/24/21 22:46 [place] % (Auto) 6.7 % (0.0-7.3) 04/24/21 22:46 Eos % (Auto) 1.2 % (0.0-4.3) 04/24/21 22:46 Baso % (Auto) 0.4 % (0.0-1.8) 04/24/21 22:46 Lymph # (Auto) 2.0 K/mm3 (1.2-5.4) 04/24/21 22:46 [place] # (Auto) 0.6 K/mm3 (0.0-0.8) 04/24/21 22:46 Eos # (Auto) 0.1 K/mm3 (0.0-0.4) 04/24/21 22:46 Baso # (Auto) 0.0 K/mm3 (0.0-0.1) 04/24/21 22:46 Seg Neutrophils % 71.1 % (40.0-70.0) H 04/24/21 22:46 Seg Neutrophils # 6.7 K/mm3 (1.8-7.7) 04/24/21 22:46 Sodium 128 mmol/L (137-145) L D 04/24/21 22:46 Potassium 3.7 mmol/L (3.6-5.0) 04/24/21 22:46 Chloride 91.2 mmol/L (98-107) L 04/24/21 22:46 Carbon Dioxide 25 mmol/L (22-30) 04/24/21 22:46 Anion Gap 16 mmol/L 04/24/21 22:46 BUN 7 mg/dL (7-17) 04/24/21 22:46 Creatinine 0.8 mg/dL (0.6-1.2) 04/24/21 22:46 Estimated GFR > 60 ml/min 04/24/21 22:46 BUN/Creatinine Ratio 9 % 04/24/21 22:46 Glucose 498 mg/dL (65-100) H 04/24/21 22:46 POC Glucose 308 mg/dL (70-105) H 04/25/21 03:45 Lactic Acid 1.60 mmol/L (0.7-2.0) 04/25/21 00:54 Calcium 8.6 mg/dL (8.4-10.2) 04/24/21 22:46 Total Bilirubin 0.70 mg/dL (0.1-1.2) 04/24/21 22:46 AST 15 units/L (5-40) 04/24/21 22:46 ALT 13 units/L (7-56) 04/24/21 22:46 Alkaline Phosphatase 127 units/L (35-129) 04/24/21 22:46 Total Protein 7.4 g/dL (6.3-8.2) 04/24/21 22:46 Albumin 3.4 g/dL (3.9-5) L 04/24/21 22:46 Albumin/Globulin Ratio 0.9 % 04/24/21 22:46 HCG, Qual Negative (Negative) 04/24/21 22:46 - Imaging and Cardiology CT scan - abdomen: report reviewed Assessment and Plan VTE prophylaxis?: Chemical Plan of care discussed with patient/family: Yes - Patient Problems (1) Abdominal wall abscess Current Visit: Yes Status: Acute Plan to address problem: Admit the patient to the medical floor. N.p.o. normal saline at the rate of 100 cc/h. Vancomycin 1 g IV every 12 hours. Zosyn 4.5 g IV every 8 hours. Will consult surgery for evaluation and possible I&D (2) Abdominal wall cellulitis Current Visit: Yes Status: Acute Plan to address problem: N.p.o. normal saline at the rate of 100 cc/h. Vancomycin 1 g IV every 12 hours. Zosyn 4.5 g IV every 8 hours. Will consult surgery for evaluation and possible I&D (3) Asthma Current Visit: Yes Status: Acute Plan to address problem: Stable oxygen by nasal cannula 3 L/min. DuoNeb by nebulizer every 4 hours. Albuterol via nebulizer every 4 hours as needed (4) Uncontrolled diabetes mellitus Current Visit: Yes Status: Acute Qualifiers: Diabetes mellitus type: type 2 Glycemic state: with hyperglycemia Qualified Code(s): E11.65 - Type 2 diabetes mellitus with hyperglycemia Plan to address problem: We will put the patient on Humalog sliding scale Accu-Chek every 6 hours with moderate dose coverage. We also continue home medication. We keep diabetic ed ucation recheck BMP in the morning (5) HTN (hypertension) Current Visit: No Status: Acute Plan to address problem: Hydralazine 10 mg IV every 6 hours as needed we will continue the home medication we will monitor the blood pressure closely (6) DVT prophylaxis Current Visit: Yes Status: Acute Plan to address problem: Heparin 5000 units subcu every 8 hours for DVT prophylaxis. Pepcid 20 mg p.o. twice daily for GI prophylaxis. Patient is a full code
[2021-04-25] MEDS: HEPARIN 5,000 UNIT/1 ML VIAL SUB-Q SCH ×3 (05:56→21:35)
[2021-04-25] MEDS ORDERED: CLINDAMYCIN 300 MG CAP PO SCH (06:00)
[2021-04-25] MEDS ORDERED: PIPERACIL/TAZOBACTA 4.5/NS 100 4.5 GM/100 ML VIAL IV SCH (06:00)
[2021-04-25] MEDS ORDERED: VANCOMYCIN/NS 1 GM/250 ML 1 GM/250 ML BAG IV SCH (06:00)
[2021-04-25] MEDS: traMADol 50 MG TAB PO PRN (06:19)
[2021-04-25] MEDS: INSULIN LISPRO 100 UNIT/ML SUB-Q SCH ×2 (06:30→13:17)
[2021-04-25] MEDS ORDERED: LIDOCAINE (1%) 10 MG/1 ML VIAL 20 ML MDV INFILTRATI STA (07:23)
[2021-04-25] MEDS: MORPHINE 2 MG/1 ML INJ IV PRN ×2 (07:42→13:29)
--- NOTE | 2021-04-25 08:03 | Consultation ---
History of Present Illness Consult date: 04/25/21 Chief complaint: Abscess - History of present illness History of present illness: 46-year-old female with a history of diabetes, hypertension, morbid obesity who presented to the emergency room for increasing swelling and pain near the umbilicus. Patient states she felt there was a boil in this area and she tried to drain it on her own with a needle. This started about 1 week ago. After this attempt she states that she felt the infection spread and the pain and swelling became worse. She had subjective fevers and chills. She had nausea and vomiting. She has had abscesses like this in the past once in her axilla and once in the back. She states these both required incision and drainage in the hospital with packing. She denies chest pain, shortness of breath. She states her nausea and vomiting has resolved and she is hungry. Past History Past Medical History: diabetes, hypertension, other (Asthma, morbid obesity) Past Surgical History: Other (Incision and drainage of axillary and back abscess) Social history: no significant social history Family history: no significant family history Medications and Allergies Allergies Allergy/AdvReac Type Severity Reaction Status Date / Time No Known Allergies Allergy Verified 12/24/18 14:40 Home Medications Medication Instructions Recorded Confirmed Last Taken Type hydroCHLOROthiazide 12.5 mg PO DAILY #30 cap 07/16/20 Unknown Rx [Hydrochlorothiazide] metFORMIN [Glucophage] 500 mg PO QDAY #30 07/16/20 Unknown Rx Butalb/Acetamin/Caff 50-325-40 1 each PO Q8H PRN #10 tablet 09/23/20 Unknown Rx [Fioricet 50-325-40] Diclofenac Sodium 75 mg PO BID PRN 7 Days #14 09/23/[address] Acetaminophen [Tylenol] 500 mg PO Q6HR PRN #30 tablet 10/01/20 Unknown Rx methOCARBAMOL [Robaxin TAB] 750 mg PO Q8H PRN #30 tablet 10/01/20 Unknown Rx traMADoL [Ultram] 50 mg PO Q6HR PRN #12 tablet 10/01/20 Unknown Rx Clindamycin [Clindamycin CAP] 300 mg PO Q8H #30 cap 04/21/21 Unknown Rx Ketorolac [Toradol] 10 mg PO Q6H PRN #12 tablet 04/21/21 Unknown Rx hydroCHLOROthiazide [HCTZ] 25 mg PO QDAY #30 tablet 04/21/21 Unknown Rx metFORMIN [Glucophage] 500 mg PO BID #60 tablet 04/21/21 Unknown Rx Active Meds: Active Medications Acetaminophen (Acetaminophen 325 Mg Tab) 650 mg PO Q4H PRN PRN Reason: Pain MILD(1-3)/Fever >100.5/[place] Acetaminophen/Butalbital/Caffeine (Butalb/Acetaminophen/Caffeine Tab) 1 tab PO Q8H PRN PRN Reason: Headache Albuterol (Albuterol 2.5 Mg/3 Ml Nebu) 2.5 mg IH Q4HRT PRN PRN Reason: Shortness Of Breath Albuterol/Ipratropium (Ipratropium/Albuterol Sulfate 3 Ml Ampul.Neb) 1 ampul IH Q6HRT [facility] Dextrose (Dextrose 50% In Water (25gm) 50 Ml Syringe) 0 ml IV Q30MIN PRN; Protocol PRN Reason: Hypoglycemia Famotidine (Famotidine 20 Mg Tab) 20 mg PO BID [facility] Heparin Sodium (Porcine) (Heparin 5,000 Unit/1 Ml Vial) 5,000 unit SUB-Q Q8HR [facility] Last Admin: 04/25/21 05:56 Dose: Not Given Documented by: Hydralazine HCl (Hydralazine 20 Mg/1 Ml Inj) 10 mg IV Q6H PRN PRN Reason: htn Hydrochlorothiazide (Hydrochlorothiazide 25 Mg Tab) 25 mg PO QDAY [facility] Vancomycin HCl 2,000 mg/ (Sodium Chloride) 540 mls @ 250 mls/hr IV Q12H [facility] Sodium Chloride (Nacl 0.9% 1000 Ml) 1,000 mls @ 100 mls/hr IV DIRECT [facility] Last Admin: 04/25/21 06:04 Dose: 100 mls/hr Documented by: Piperacillin Sod/Tazobactam Sod (Zosyn/Ns 4.5gm/100ml) 4.5 gm in 100 mls @ 200 mls/hr IV Q6H [facility]; Protocol Insulin Human Lispro (Insulin Lispro 100 Unit/Ml) 0 unit SUB-Q Q6HR [facility]; Protocol Last Admin: 04/25/21 06:30 Dose: 4 unit Documented by: Ketorolac Tromethamine (Ketorolac 10 Mg Tab) 10 mg PO Q6H PRN PRN Reason: PAIN (4-6) Stop: 04/30/21 04:39 Metformin HCl (Metformin 500 Mg Tab) 500 mg PO BIDDIAB [facility] Morphine Sulfate (Morphine 2 Mg/1 Ml Inj) 2 mg IV Q4H PRN PRN Reason: Pain, Moderate (4-6) Last Admin: 04/25/21 07:42 Dose: 2 mg Documented by: Ondansetron HCl (Ondansetron 4 Mg/2 Ml Inj) 4 mg IV Q8H PRN PRN Reason: Nausea And Vomiting Sodium Chloride (Sodium Chloride 0.9% 10 Ml Flush Syringe) 10 ml IV BID [facility] Sodium Chloride (Sodium Chloride 0.9% 10 Ml Flush Syringe) 10 ml IV PRN PRN PRN Reason: LINE FLUSH Last Admin: 04/25/21 06:04 Dose: 10 ml Documented by: Tramadol HCl (Tramadol 50 Mg Tab) 50 mg PO Q6H PRN PRN Reason: PAIN (4-6) Last Admin: 04/25/21 06:19 Dose: 50 mg Documented by: Review of Systems All systems: negative (10 point ROS performed and negative except for that listed in HPI) Exam Vital Signs Temp Pulse Resp BP Pulse Ox 98.9 F 100 H 20 153/94 99 04/24/21 18:09 04/24/21 18:09 04/24/21 18:09 04/24/21 18:09 04/24/21 18:09 Narrative exam: Gen.: Awake, alert, oriented x3. No apparent distress ENT: Trachea midline. No lymphadenopathy. No scleral icterus or conjunctival pallor CV: S1, S2 present Respiratory: No audible wheezes Abdomen: Soft, obese, nondistended. There is a indurated area measuring approximately 10 cm just to the right of the umbilicus with erythema and fluctuance. There is no drainage or necrosis of the skin. Extremities: No clubbing, cyanosis, edema Results - Labs 04/24/21 22:46 04/24/21 22:46 Abnormal lab results 04/24/21 04/24/21 04/25/21 Range/Units 22:46 22:46 03:45 MCV 78 L (79-97) fl MCH 27 L (28-32) pg Seg Neutrophils % 71.1 H (40.0-70.0) % Sodium 128 L D (137-145) mmol/L Chloride 91.2 L (98-107) mmol/L Glucose 498 H (65-100) mg/dL POC Glucose 308 H (70-105) mg/dL Albumin 3.4 L (3.9-5) g/dL 04/25/21 Range/Units 06:19 MCV (79-97) fl MCH (28-32) pg Seg Neutrophils % (40.0-70.0) % Sodium (137-145) mmol/L Chloride (98-107) mmol/L Glucose (65-100) mg/dL POC Glucose 298 H (70-105) mg/dL Albumin (3.9-5) g/dL Diabetes panel 04/24/21 Range/Units 22:46 Sodium 128 L D (137-145) mmol/L Potassium 3.7 (3.6-5.0) mmol/L Chloride 91.2 L (98-107) mmol/L Carbon Dioxide 25 (22-30) mmol/L BUN 7 (7-17) mg/dL Creatinine 0.8 (0.6-1.2) mg/dL Glucose 498 H (65-100) mg/dL Calcium 8.6 (8.4-10.2) mg/dL AST 15 (5-40) units/L ALT 13 (7-56) units/L Alkaline Phosphatase 127 (35-129) units/L Total Protein 7.4 (6.3-8.2) g/dL Albumin 3.4 L (3.9-5) g/dL Calcium panel 04/24/21 Range/Units 22:46 Calcium 8.6 (8.4-10.2) mg/dL Albumin 3.4 L (3.9-5) g/dL Pituitary panel 04/24/21 Range/Units 22:46 Sodium 128 L D (137-145) mmol/L Potassium 3.7 (3.6-5.0) mmol/L Chloride 91.2 L (98-107) mmol/L Carbon Dioxide 25 (22-30) mmol/L BUN 7 (7-17) mg/dL Creatinine 0.8 (0.6-1.2) mg/dL Glucose 498 H (65-100) mg/dL Calcium 8.6 (8.4-10.2) mg/dL Adrenal panel 04/24/21 Range/Units 22:46 Sodium 128 L D (137-145) mmol/L Potassium 3.7 (3.6-5.0) mmol/L Chloride 91.2 L (98-107) mmol/L Carbon Dioxide 25 (22-30) mmol/L BUN 7 (7-17) mg/dL Creatinine 0.8 (0.6-1.2) mg/dL Glucose 498 H (65-100) mg/dL Calcium 8.6 (8.4-10.2) mg/dL Total Bilirubin 0.70 (0.1-1.2) mg/dL AST 15 (5-40) units/L ALT 13 (7-56) units/L Alkaline Phosphatase 127 (35-129) units/L Total Protein 7.4 (6.3-8.2) g/dL Albumin 3.4 L (3.9-5) g/dL - Imaging CT scan - abdomen: report reviewed, image reviewed CT scan - pelvis: report reviewed, image reviewed Assessment and Plan 45-year-old female with 1. abscess of abdominal wall 2. Poorly controlled diabetes 3. Morbid obesity Plan: 1. Consistent carb diet 2. HbA1C 3. strict glucose control 4. IV abx 5. prn pain control 6. Recommend incision and drainage of abdominal wall abscess. I discussed with the patient performing this at the bedside and she is agreeable. All risks, benefits, alternatives to the procedure were discussed and questions answered. Consent obtained. Will obtain wound cultures during I&D. 7. Recommend a period of observation for 24 hours after incision and drainage and if patient is stable she may be discharged. Thank you for this consultation. Please call with any questions or concerns. Evaluation and treatment of this patient was during the time of the national and state emergency arising from COVID19 coronavirus pandemic. Treatment and procedures performed meet the current and available best practice and guidelines for patient during the COVID pandemic.
--- NOTE | 2021-04-25 08:03 | Procedure Note ---
Date of procedure: 04/25/21 Pre-op diagnosis: Abdominal wall abscess Post-op diagnosis: same Procedure: Incision and drainage of abdominal wall abscess Findings: Patient identified in the hospital bed. The area of the abscess was marked. The area was prepped with Betadine and draped in usual sterile fashion. A timeout was performed with patient's RN in the room for the entirety of the procedure. Local anesthetic was infiltrated into the skin at the intended incision site. A vertical incision was made over the area of fluctuance using an 11 blade. There was immediate drainage of pus. The wound was probed with a hemostat and a gloved finger in order to break up any loculations in the abscess cavity. This resulted in a copious amount of purulent drainage from the abscess cavity. Cultures were obtained. The abscess cavity measured approximately 5 cm. Once all of the purulent fluid was evacuated the wound was irrigated with saline. Hemostasis was carefully ensured. The cavity was then packed with 1 piece of Mesalt packing. This was covered with 4 x 4 gauze and a cover site dressing. The patient noted immediate relief once drainage was performed. The patient tolerated the procedure well. All sharps were disposed of appropriately. Wound cultures were sent to the lab. Anesthesia: local Surgeon: WADE HERNANDEZ Estimated blood loss: minimal Pathology: list (Wound cultures) Specimen disposition: to lab Condition: stable Disposition: no change
[2021-04-25] MEDS: IPRATROPIUM/ALBUTEROL SULFATE 3 ML AMPUL.NEB IH SCH ×3 (08:25→20:50)
[2021-04-25] MEDS: metFORMIN 500 MG TAB PO SCH ×2 (09:01→17:20)
[2021-04-25] MEDS: FAMOTIDINE 20 MG TAB PO SCH ×2 (09:01→21:35)
[2021-04-25] MEDS: hydroCHLOROthiazide 25 MG TAB PO SCH (09:01)
[2021-04-25] MEDS: VANCOMYCIN 2,000 MG in SODIUM CHLORIDE 0.9% 500 ML 500 ML IV SCH ×2 (10:03→21:36)
[2021-04-25] MEDS: PIPERACIL/TAZOBACTA 4.5/NS 100 4.5 GM/100 ML VIAL IV SCH ×2 (13:17→17:20)
--- NOTE | 2021-04-25 15:33 | Event Note ---
Date: 04/25/21 Patient seen and examined This the second visit after midnight Vitals noted and stable Breathing nonlabored, S1 and S2 positive, anterior abdominal wall wound dressing intact 46-year-old female with past medical history of uncontrolled diabetes, hypertension and asthma was brought to the emergency room because of abdominal wall cellulitis and abscess that began a week ago. Patient was evaluated in the emergency department on 04/20/2021 and diagnosed with cellulitis of the abdominal wall at that time and was started on clindamycin. She states that it has become more swollen, more red, more warm to touch and she began having a subjective fever In the emergency room CT scan of the abdomen pelvis showed severe cellulitis of the right lower quadrant anterior abdominal wall but there is a 5.3 cm mixed fluid and gas collection concerning for abscess General surgery was consulted and patient is currently status post I&D Wound culture pending Discussed with general surgery and recommended to keep patient overnight to provide IV antibiotics as patient failed outpatient therapy Wait for wound culture results for discharge antibiotics recommendation It took me about 25 minutes to reevaluate and reasses this patient, discussed with RN/CM, review medical documents, lab results, imaging, medication list and placing order.
[2021-04-25] MEDS: INSULIN REGULAR, HUMAN 100 UNITS/1 ML SUB-Q SCH ×2 (17:20→21:35)
[2021-04-26] MEDS: PIPERACIL/TAZOBACTA 4.5/NS 100 4.5 GM/100 ML VIAL IV SCH ×4 (00:13→21:38)
[2021-04-26] MEDS: IPRATROPIUM/ALBUTEROL SULFATE 3 ML AMPUL.NEB IH SCH ×4 (03:12→21:20)
[2021-04-26] MEDS: MORPHINE 2 MG/1 ML INJ IV PRN ×2 (04:05→14:42)
[2021-04-26 05:03] LABS: Basophils # (Auto) 0.1 K/mm3 (0.0-0.1); Basophils % (Auto) 0.5 % (0.0-1.8); Eosinophils # (Auto) 0.3 K/mm3 (0.0-0.4); Eosinophils % (Auto) 2.5 % (0.0-4.3); Hematocrit 38.2 % (30.3-42.9); Hemoglobin 12.8 gm/dl (10.1-14.3); Lymphocytes # (Auto) 3.3 K/mm3 (1.2-5.4); Lymphocytes % (Auto) 29.5 % (13.4-35.0); Mean Corpuscular HGB Conc 34 % (30-34); Mean Corpuscular Volume 79 fl (79-97); Monocytes # (Auto) 0.7 K/mm3 (0.0-0.8); Monocytes % (Auto) 6.2 % (0.0-7.3); Platelet Count 410 K/mm3 (140-440); Red Blood Count 4.87 M/mm3 (3.65-5.03); Red Cell Distribution Width 13.9 % (13.2-15.2)
[2021-04-26 05:21] LABS: Calcium 9.1 mg/dL (8.4-10.2)
[2021-04-26] MEDS: HEPARIN 5,000 UNIT/1 ML VIAL SUB-Q SCH ×3 (06:08→21:42)
[2021-04-26] MEDS: metFORMIN 500 MG TAB PO SCH (08:41)
[2021-04-26] MEDS: INSULIN REGULAR, HUMAN 100 UNITS/1 ML SUB-Q SCH ×4 (08:46→21:42)
[2021-04-26] MEDS ORDERED: ONDANSETRON 4 MG/2 ML INJ IV SCH (10:00)
[2021-04-26] MEDS: POLYETHYLENE GLYCOL 3350 17 GM POWDER PO SCH (10:50)
[2021-04-26] MEDS: DOCUSATE SODIUM 100 MG CAP PO SCH ×2 (10:50→21:42)
[2021-04-26] MEDS: hydroCHLOROthiazide 25 MG TAB PO SCH (10:50)
[2021-04-26] MEDS: SCOPOLAMINE TRANSDERMAL PATCH 72 HR TD SCH (10:51)
[2021-04-26] MEDS: FAMOTIDINE 20 MG TAB PO SCH ×2 (10:51→21:42)
[2021-04-26] MEDS: traMADol 50 MG TAB PO PRN (12:23)
[2021-04-26] MEDS ORDERED: hydroCHLOROthiazide 25 MG TAB PO SCH (12:54)
--- NOTE | 2021-04-26 12:59 | Progress Note ---
Subjective Date of service: 04/26/21 Interval history: History of present illness: 46-year-old female with past medical history of uncontrolled diabetes, hypertension and asthma was brought to the emergency room because of abdominal wall cellulitis and abscess that began a week ago. Initially it started as a small lump which she reports that she used alcohol a needle and and had a small amount of drainage. Patient was evaluated in the emergency department on 04/20/2021 and diagnosed with cellulitis of the abdominal wall at that time and was started on clindamycin. She reports that she has been taking the clindamycin as prescribed 3 times a day. She states that it has become more swollen, more red, more warm to touch and she began having a subjective fever last night. She states that she also has associated nausea and has had a couple episodes of vomiting. She denies any drainage or diarrhea. In the emergency room CT scan of the abdomen pelvis showed severe cellulitis of the right lower quadrant anterior abdominal wall but there is a 5.3 cm mixed fluid and gas collection concerning for abscess 04/26 patient is alert and oriented, complains of pain in the operated site, also complains of nausea and vomiting. Denies fever or chills. Discussed with general surgery Dr. Goins. Possible discharge tomorrow Assessment and plan Abdominal wall abscess/cellulitis Status post I&D Continue IV antibiotic with Zosyn Drain to be removed today per discussion with Dr. Goins Patient is complaining of nausea vomiting Possible discharge tomorrow Hypertension Decrease HCTZ to 12.5 Add ARB Monitor renal function Hyponatremia secondary to hyperglycemia Improved Uncontrolled type 2 diabetes We will check A1c Continue Metformin We will add glipizide I had a long discussion with the patient regarding the importance of good control of diabetes Morbid obesity Extensive counseling done on weight loss, diet, and exercise Patient states that she lost 90 pounds in the past 4 months intentionally Objective - Constitutional Vitals: Vital Signs - 12hr 04/26/21 04/26/21 04/26/21 03:22 07:42 08:59 Temperature 98.1 F 99.7 F H Pulse Rate 90 83 Respiratory 19 18 Rate Blood Pressure 146/93 144/93 O2 Sat by Pulse 97 91 95 Oximetry General appearance: Present: no acute distress, obese - EENT Eyes: PERRL, EOM intact ENT: hearing intact - Neck Neck: supple, normal ROM - Respiratory Respiratory effort: normal Respiratory: bilateral: CTA, diminished - Cardiovascular Rhythm: regular Heart Sounds: Present: S1 & S2 Extremities: No edema - Gastrointestinal General gastrointestinal: Present: soft, tender (At the operated site) Rectal Exam: deferred - Genitourinary Female genitourinary: deferred - Integumentary Integumentary: clear - Musculoskeletal Musculoskeletal: strength equal bilaterally - Neurologic Neurologic: no focal deficits, moves all extremities - Psychiatric Psychiatric: appropriate mood/affect - Labs CBC & Chem 7: 04/26/21 04:40 04/26/21 04:40 Labs: Abnormal lab results 04/25/21 04/25/21 04/26/21 Range/Units 16:58 21:00 04:40 WBC 11.1 H (4.5-11.0) K/mm3 MCH 26 L (28-32) pg Creatinine (0.6-1.2) mg/dL Glucose (65-100) mg/dL POC Glucose 334 H 311 H (70-105) mg/dL Vancomycin Trough (5.0-20.0) ug/mL 04/26/21 04/26/21 04/26/21 Range/Units 04:40 07:39 08:23 WBC (4.5-11.0) K/mm3 MCH (28-32) pg Creatinine 1.6 H D (0.6-1.2) mg/dL Glucose 210 H (65-100) mg/dL POC Glucose 206 H (70-105) mg/dL Vancomycin Trough 26.7 H (5.0-20.0) ug/mL 04/26/21 Range/Units 11:43 WBC (4.5-11.0) K/mm3 MCH (28-32) pg Creatinine (0.6-1.2) mg/dL Glucose (65-100) mg/dL POC Glucose 263 H (70-105) mg/dL Vancomycin Trough (5.0-20.0) ug/mL
[2021-04-26] MEDS ORDERED: hydroCHLOROthiazide 12.5 MG CAP PO SCH (14:00)
[2021-04-26] MEDS ORDERED: LOSARTAN 25 MG TAB PO SCH (14:00)
[2021-04-26] MEDS: ONDANSETRON 4 MG/2 ML INJ IV PRN (15:09)
--- NOTE | 2021-04-26 15:23 | Progress Note ---
Assessment and Plan 46-year-old female status post incision and drainage of abdominal wall abscess, POD 1 1. abscess of abdominal wall 2. Poorly controlled diabetes - HbA1c -14 3. Morbid obesity Plan: 1. Consistent carb diet 2. prn nausea control- zofran prn and scopolamine patch ordered 3. strict glucose control 4. IV abx 5. prn pain control 6. cultures pending 7. [facility], case management consult 8. Daily dressing changes per nursing - orders written 9. Wound care clinic follow up upon dc. Ok to dc tomorrow from surgical standpoint if tolerating diet and pain controlled. Thank you . Please call with any questions or concerns. Evaluation and treatment of this patient was during the time of the national and state emergency arising from COVID19 coronavirus pandemic. Treatment and procedures performed meet the current and available best practice and guidelines for patient during the COVID pandemic. Subjective Date of service: 04/26/21 Narrative: Patient seen and examined. Complains of pain at abdominal wound site. Also complains of nausea and retching. States that she does not want to eat solid food due to the nausea. She has been afebrile. Objective Vital Signs - 12hr 04/26/21 04/26/21 07:42 08:59 Temperature 99.7 F H Pulse Rate 83 Respiratory 18 Rate Blood Pressure 144/93 O2 Sat by Pulse 91 95 Oximetry - General physical appearance Narrative Exam: Gen.: Awake, alert, oriented x3. No apparent distress ENT: Trachea midline. No lymphadenopathy. No scleral icterus or conjunctival pallor CV: S1, S2 present Respiratory: No audible wheezes Abdomen: Soft, nondistended, obese. Abdominal wall dressing removed in 1 piece of Mesalt packing removed from wound. There is surgical seropurulent drainage on the packing and dressing. Wound cleansed with wound cleanser. No additional drainage, odor. Wound appears clean. There is still erythema and induration of the skin and subcutaneous tissue. Wound packed with 1 piece of Mesalt, covered with foam dressing. No rebound, rigidity, guarding Extremities: No clubbing, cyanosis, edema - Labs 04/26/21 04:40 04/26/21 04:40 Diabetes panel 04/26/21 04/26/21 Range/Units 04:40 13:07 Sodium 138 D (137-145) mmol/L Potassium 4.1 (3.6-5.0) mmol/L Chloride 98.9 (98-107) mmol/L Carbon Dioxide 25 (22-30) mmol/L BUN 10 (7-17) mg/dL Creatinine 1.6 H D (0.6-1.2) mg/dL Glucose 210 H (65-100) mg/dL Hemoglobin A1c 14.0 H (4-6) % Calcium 9.1 (8.4-10.2) mg/dL Calcium panel 04/26/21 Range/Units 04:40 Calcium 9.1 (8.4-10.2) mg/dL Pituitary panel 04/26/21 Range/Units 04:40 Sodium 138 D (137-145) mmol/L Potassium 4.1 (3.6-5.0) mmol/L Chloride 98.9 (98-107) mmol/L Carbon Dioxide 25 (22-30) mmol/L BUN 10 (7-17) mg/dL Creatinine 1.6 H D (0.6-1.2) mg/dL Glucose 210 H (65-100) mg/dL Calcium 9.1 (8.4-10.2) mg/dL Adrenal panel 04/26/21 Range/Units 04:40 Sodium 138 D (137-145) mmol/L Potassium 4.1 (3.6-5.0) mmol/L Chloride 98.9 (98-107) mmol/L Carbon Dioxide 25 (22-30) mmol/L BUN 10 (7-17) mg/dL Creatinine 1.6 H D (0.6-1.2) mg/dL Glucose 210 H (65-100) mg/dL Calcium 9.1 (8.4-10.2) mg/dL
[2021-04-26] MEDS: glipiZIDE 5 MG TAB PO SCH (16:48)
[2021-04-27] MEDS: IPRATROPIUM/ALBUTEROL SULFATE 3 ML AMPUL.NEB IH SCH ×4 (02:35→20:11)
[2021-04-27] MEDS: PIPERACIL/TAZOBACTA 4.5/NS 100 4.5 GM/100 ML VIAL IV SCH ×3 (02:40→17:00)
[2021-04-27] MEDS: MORPHINE 2 MG/1 ML INJ IV PRN ×3 (02:41→21:18)
[2021-04-27] MEDS: ONDANSETRON 4 MG/2 ML INJ IV PRN ×2 (02:41→10:30)
[2021-04-27 05:17] LABS: Hematocrit 33.7 % (30.3-42.9); Hemoglobin 11.3 gm/dl (10.1-14.3); Mean Corpuscular HGB Conc 34 % (30-34); Mean Corpuscular Volume 79 fl (79-97); Platelet Count 352 K/mm3 (140-440); Red Blood Count 4.29 M/mm3 (3.65-5.03); Red Cell Distribution Width 13.8 % (13.2-15.2)
[2021-04-27 05:33] LABS: Calcium 8.6 mg/dL (8.4-10.2)
[2021-04-27] MEDS: HEPARIN 5,000 UNIT/1 ML VIAL SUB-Q SCH ×3 (06:36→21:18)
[2021-04-27] MEDS: DOCUSATE SODIUM 100 MG CAP PO SCH ×2 (10:29→21:20)
[2021-04-27] MEDS: FAMOTIDINE 20 MG TAB PO SCH (10:30)
[2021-04-27] MEDS: amLODIPine 5 MG TAB PO SCH (10:30)
[2021-04-27] MEDS: POLYETHYLENE GLYCOL 3350 17 GM POWDER PO SCH (10:30)
[2021-04-27] MEDS: glipiZIDE 5 MG TAB PO SCH ×2 (10:31→16:04)
[2021-04-27] MEDS: INSULIN REGULAR, HUMAN 100 UNITS/1 ML SUB-Q SCH ×3 (10:31→16:10)
--- NOTE | 2021-04-27 14:04 | Consultation ---
History of Present Illness - Reason for Consult Consult date: 04/27/21 acute renal failure Requesting physician: NICOLE ISRAEL - History of Present Illness 46-year-old female with past medical history of uncontrolled diabetes, hypertension and asthma was brought to the emergency room because of abdominal wall cellulitis and abscess that began a week ago. Initially it started as a small lump which she reports that she used alcohol a needle and and had a small amount of drainage. Patient was evaluated in the emergency department on 04/20/2021 and diagnosed with cellulitis of the abdominal wall at that time and was started on clindamycin. She reports that she has been taking the clindamycin as prescribed 3 times a day. She states that it has become more swo llen, more red, more warm to touch and she began having a subjective fever last night. She states that she also has associated nausea and has had a couple episodes of vomiting. She denies any drainage or diarrhea. Patient does take diclofenac at home. Renal consult is requested because of rising serum creatinine. Patient is status post IND of her abdominal wall abscess. Past History Past Medical History: diabetes, hypertension, other (Asthma, morbid obesity) Past Surgical History: Other (Incision and drainage of axillary and back abscess) Social history: no significant social history Family history: no significant family history Medications and Allergies Allergies Allergy/AdvReac Type Severity Reaction Status Date / Time No Known Allergies Allergy Verified 12/24/18 14:40 Home Medications Medication Instructions Recorded Confirmed Last Taken Type hydroCHLOROthiazide 12.5 mg PO DAILY #30 cap 07/16/20 Unknown Rx [Hydrochlorothiazide] metFORMIN [Glucophage] 500 mg PO QDAY #30 07/16/20 Unknown Rx Butalb/Acetamin/Caff 50-325-40 1 each PO Q8H PRN #10 tablet 09/23/20 Unknown Rx [Fioricet 50-325-40] Diclofenac Sodium 75 mg PO BID PRN 7 Days #14 09/23/20 Unknown Rx Acetaminophen [Tylenol] 500 mg PO Q6HR PRN #30 tablet 10/01/20 Unknown Rx methOCARBAMOL [Robaxin TAB] 750 mg PO Q8H PRN #30 tablet 10/01/20 Unknown Rx traMADoL [Ultram] 50 mg PO Q6HR PRN #12 tablet 10/01/20 Unknown Rx Clindamycin [Clindamycin CAP] 300 mg PO Q8H #30 cap 04/21/21 Unknown Rx Ketorolac [Toradol] 10 mg PO Q6H PRN #12 tablet 04/21/21 Unknown Rx hydroCHLOROthiazide [HCTZ] 25 mg PO QDAY #30 tablet 04/21/21 Unknown Rx metFORMIN [Glucophage] 500 mg PO BID #60 tablet 04/21/21 Unknown Rx Active Meds: Active Medications Acetaminophen (Acetaminophen 325 Mg Tab) 650 mg PO Q4H PRN PRN Reason: Pain MILD(1-3)/Fever >100.5/YARBROUGH Acetaminophen/Butalbital/Caffeine (Butalb/Acetaminophen/Caffeine Tab) 1 tab PO Q8H PRN PRN Reason: Headache Last Admin: 04/26/21 12:23 Dose: 1 tab Documented by: Albuterol (Albuterol 2.5 Mg/3 Ml Nebu) 2.5 mg IH Q4HRT PRN PRN Reason: Shortness Of Breath Albuterol/Ipratropium (Ipratropium/Albuterol Sulfate 3 Ml Ampul.Neb) 1 ampul IH Q6HRT [facility] Last Admin: 04/27/21 09:20 Dose: Not Given Documented by: Amlodipine Besylate (Amlodipine 5 Mg Tab) 5 mg PO QDAY [facility] Last Admin: 04/27/21 10:30 Dose: 5 mg Documented by: Dextrose (Dextrose 50% In Water (25gm) 50 Ml Syringe) 0 ml IV Q30MIN PRN; Protocol PRN Reason: Hypoglycemia Docusate Sodium (Docusate Sodium 100 Mg Cap) 100 mg PO BID [facility] Last Admin: 04/27/21 10:29 Dose: 100 mg Documented by: Famotidine (Famotidine 20 Mg Tab) 20 mg PO DAILY [facility] Last Admin: 04/27/21 10:30 Dose: 20 mg Documented by: Glipizide (Glipizide 5 Mg Tab) 5 mg PO BIDDIAB [facility] Last Admin: 04/27/21 10:31 Dose: Not Given Documented by: Heparin Sodium (Porcine) (Heparin 5,000 Unit/1 Ml Vial) 5,000 unit SUB-Q Q8HR [facility] Last Admin: 04/27/21 06:36 Dose: 5,000 unit Documented by: Hydralazine HCl (Hydralazine 20 Mg/1 Ml Inj) 10 mg IV Q6H PRN PRN Reason: htn Sodium Chloride (Nacl 0.9% 1000 Ml) 1,000 mls @ 100 mls/hr IV DIRECT [facility] Last Admin: 04/25/21 06:04 Dose: 100 mls/hr Documented by: Piperacillin Sod/Tazobactam Sod (Zosyn/Ns 4.5gm/100ml) 4.5 gm in 100 mls @ 200 mls/hr IV Q12H [facility]; Protocol Insulin Human Regular (Insulin Regular, Human 100 Units/1 Ml) 0 units SUB-Q ACHS [facility]; Protocol Last Admin: 04/27/21 10:31 Dose: Not Given Documented by: Metoclopramide HCl (Metoclopramide 10 Mg/2 Ml Inj) 5 mg IV [facility] Morphine Sulfate (Morphine 2 Mg/1 Ml Inj) 2 mg IV Q4H PRN PRN Reason: Pain , Severe (7-10) Last Admin: 04/27/21 02:41 Dose: 2 mg Documented by: Ondansetron HCl (Ondansetron 4 Mg/2 Ml Inj) 4 mg IV Q4H PRN PRN Reason: Nausea And Vomiting Last Admin: 04/27/21 10:30 Dose: 4 mg Documented by: Polyethylene Glycol (Polyethylene Glycol 3350 17 Gm Powder) 17 gm PO QDAY [facility] Last Admin: 04/27/21 10:30 Dose: 17 gm Documented by: Scopolamine (Scopolamine Transdermal Patch 72 Hr) 1 each TD Q3D [facility] Last Admin: 04/26/21 10:51 Dose: 1 each Documented by: Sodium Chloride (Sodium Chloride 0.9% 10 Ml Flush Syringe) 10 ml IV BID [facility] Last Admin: 04/27/21 10:35 Dose: 10 ml Documented by: Sodium Chloride (Sodium Chloride 0.9% 10 Ml Flush Syringe) 10 ml IV PRN PRN PRN Reason: LINE FLUSH Last Admin: 04/25/21 06:04 Dose: 10 ml Documented by: Tramadol HCl (Tramadol 50 Mg Tab) 50 mg PO Q6H PRN PRN Reason: PAIN (4-6) Last Admin: 04/26/21 12:23 Dose: 50 mg Documented by: Review of Systems All systems: negative (Negative except as noted above) Exam - Vital Signs Vital signs: Vital Signs Temp Pulse Resp BP Pulse Ox 98.9 F 100 H 20 153/94 99 04/24/21 18:09 04/24/21 18:09 04/24/21 18:09 04/24/21 18:09 04/24/21 18:09 - General Appearance General appearance: well-developed, well-nourished, appears stated age, obese EENT: PERRL, mucous membranes moist Neck: Present: neck supple, trachea midline. Absent: JVD/HJR, Masses Respiratory: Clear to Ascultation Heart: regular, normal heart rate Gastrointestinal: Present: normoactive bowel sounds, other (Dressing noted in her abdominal wall) Integumentary: other (No edema) Results - Lab Results 04/27/21 03:51 04/27/21 03:51 Most recent lab results Calcium 8.6 mg/dL (8.4-10.2) 04/27/21 03:51 Assessment and Plan Impression * Acute kidney injury. Baseline creatinine 0.8 * Abdominal wall abscess * Hypertension * Diabetes * Morbid obesity Recommendations * Etiology of acute kidney injury most likely multifactorial. Probably due to diclofenac as well as infection. She may have a prerenal component as well. Need to rule out interstitial nephritis as well * Shall check a UA as well as a fractional excretion of sodium * IV hydration * Hold Metformin, diclofenac as well as thiazide diuretic * Avoid nephrotoxins * Monitor fluid status and electrolytes closely * Thank you very much for the consultation. Shall follow along with you
--- NOTE | 2021-04-27 14:07 | Progress Note ---
Subjective Date of service: 04/27/21 Interval history: History of present illness: 46-year-old female with past medical history of uncontrolled diabetes, hypertension and asthma was brought to the emergency room because of abdominal wall cellulitis and abscess that began a week ago. Initially it started as a small lump which she reports that she used alcohol a needle and and had a small amount of drainage. Patient was evaluated in the emergency department on 04/20/2021 and diagnosed with cellulitis of the abdominal wall at that time and was started on clindamycin. She reports that she has been taking the clindamycin as prescribed 3 times a day. She states that it has become more swollen, more red, more warm to touch and she began having a subjective fever last night. She states that she also has associated nausea and has had a couple episodes of vomiting. She denies any drainage or diarrhea. In the emergency room CT scan of the abdomen pelvis showed severe cellulitis of the right lower quadrant anterior abdominal wall but there is a 5.3 cm mixed fluid and gas collection concerning for abscess 04/26 patient is alert and oriented, complains of pain in the operated site, also complains of nausea and vomiting. Denies fever or chills. Discussed with general surgery Dr. Goins. Possible discharge tomorrow 04/27 patient is alert and oriented and complains of nausea and vomiting whenever she tries to eat. She denies any fever or chills or flank pain. Lab results nitish [place]. Nephrology consulted Assessment and plan Abdominal wall abscess/cellulitis Status post I&D Continue IV antibiotic with Zosyn Drain removed Nausea and vomiting Patient is complaining of nausea vomiting Possibly secondary to gastroparesis We will empirically try IV Reglan low-dose Acute kidney injury Lab results reviewed Serum creatinine is trending up Nephrology consulted Avoid nephrotoxins Monitor renal function Hypertension We will discontinue HCTZ and ARB Start on amlodipine Hyponatremia secondary to hyperglycemia Improved Uncontrolled type 2 diabetes A1c-14 discontinue Metformin Continue glipizide Continue insulin sliding scale coverage I had a long discussion with the patient regarding the importance of good control of diabetes Morbid obesity Extensive counseling done on weight loss, diet, and exercise Patient states that she lost 90 pounds in the past 4 months intentionally Objective - Constitutional Vitals: Vital Signs - 12hr 04/27/21 04/27/21 04/27/21 02:41 03:23 08:13 Temperature 97.8 F 97.9 F Pulse Rate 74 79 Respiratory 18 19 18 Rate Blood Pressure 141/86 130/72 O2 Sat by Pulse 100 98 Oximetry 04/27/21 11:39 Temperature 98.6 F Pulse Rate 80 Respiratory 20 Rate Blood Pressure 131/74 O2 Sat by Pulse 97 Oximetry General appearance: Present: no acute distress, obese - EENT Eyes: PERRL, EOM intact ENT: hearing intact, clear oral mucosa - Neck Neck: supple, normal ROM, no masses or JVD - Respiratory Respiratory effort: normal Respiratory: bilateral: CTA, diminished - Breasts Breasts: deferred - Cardiovascular Rhythm: regular Heart Sounds: Present: S1 & S2 Extremities: No edema - Gastrointestinal General gastrointestinal: Present: soft, tender (Appropriately tender) Rectal Exam: deferred - Genitourinary Female genitourinary: deferred - Integumentary Integumentary: clear - Musculoskeletal Musculoskeletal: strength equal bilaterally - Neurologic Neurologic: no focal deficits - Psychiatric Psychiatric: appropriate mood/affect - Labs CBC & Chem 7: 04/27/21 03:51 04/27/21 03:51 Labs: Abnormal lab results 04/26/21 04/26/21 04/27/21 Range/Units 15:43 21:11 03:51 MCH 26 L (28-32) pg Sodium (137-145) mmol/L Chloride (98-107) mmol/L Creatinine (0.6-1.2) mg/dL Glucose (65-100) mg/dL POC Glucose 264 H 219 H (70-105) mg/dL 04/27/21 04/27/21 Range/Units 03:51 12:33 MCH (28-32) pg Sodium 136 L (137-145) mmol/L Chloride 96.5 L (98-107) mmol/L Creatinine 2.0 H (0.6-1.2) mg/dL Glucose 283 H (65-100) mg/dL POC Glucose 278 H (70-105) mg/dL
[2021-04-27 14:21] LABS: Bilirubin,Urine NEG (Negative); Blood,Urine NEG (Negative); Color,Urine Straw (Yellow); Mucus,Urine FEW /HPF; Protein,Urine <15 mg/dL mg/dL (Negative); Urobilinogen,Urine < 2.0 mg/dL (<2.0)
[2021-04-27] MEDS: METOCLOPRAMIDE 10 MG/2 ML INJ IV SCH ×2 (16:04→21:19)
[2021-04-28] MEDS: INSULIN REGULAR, HUMAN 100 UNITS/1 ML SUB-Q SCH ×5 (01:14→21:44)
[2021-04-28] MEDS: IPRATROPIUM/ALBUTEROL SULFATE 3 ML AMPUL.NEB IH SCH ×4 (04:55→20:12)
[2021-04-28] MEDS: PIPERACIL/TAZOBACTA 4.5/NS 100 4.5 GM/100 ML VIAL IV SCH (05:31)
[2021-04-28] MEDS: HEPARIN 5,000 UNIT/1 ML VIAL SUB-Q SCH ×3 (05:32→21:43)
[2021-04-28 06:21] LABS: Calcium 8.7 mg/dL (8.4-10.2)
[2021-04-28] MEDS: METOCLOPRAMIDE 10 MG/2 ML INJ IV SCH ×4 (08:25→21:42)
[2021-04-28] MEDS: glipiZIDE 5 MG TAB PO SCH ×2 (08:25→17:40)
--- NOTE | 2021-04-28 10:03 | Progress Note ---
Subjective Date of service: 04/28/21 Interval history: History of present illness: 46-year-old female with past medical history of uncontrolled diabetes, hypertension and asthma was brought to the emergency room because of abdominal wall cellulitis and abscess that began a week ago. Initially it started as a small lump which she reports that she used alcohol a needle and and had a small amount of drainage. Patient was evaluated in the emergency department on 04/20/2021 and diagnosed with cellulitis of the abdominal wall at that time and was started on clindamycin. She reports that she has been taking the clindamycin as prescribed 3 times a day. She states that it has become more swollen, more red, more warm to touch and she began having a subjective fever last night. She states that she also has associated nausea and has had a couple episodes of vomiting. She denies any drainage or diarrhea. In the emergency room CT scan of the abdomen pelvis showed severe cellulitis of the right lower quadrant anterior abdominal wall but there is a 5.3 cm mixed fluid and gas collection concerning for abscess 04/26 patient is alert and oriented, complains of pain in the operated site, also complains of nausea and vomiting. Denies fever or chills. Discussed with general surgery Dr. Goins. Possible discharge tomorrow 04/27 patient is alert and oriented and complains of nausea and vomiting whenever she tries to eat. She denies any fever or chills or flank pain. Lab results nitish h[place]. Nephrology consulted 04/28 patient not in any distress, nausea and vomiting a whole lot better and states she had one episode of small emesis since yesterday. Patient denies any fever or chills. Denies chest pain or shortness of breath. lab results reviewed Nephrology note reviewed Assessment and plan Abdominal wall abscess/cellulitis Status post I&D DC present IV antibiotics Start on Keflex p.o. Drain removed Nausea and vomiting-significantly improved ? gastroparesis Continue IV Reglan low-dose Will change to p.o. Reglan tomorrow Acute kidney injury Lab results reviewed Serum creatinine is unchanged at 2.0 Nephrology consulted and note reviewed Avoid nephrotoxins Monitor renal function Hypertension-fair HCTZ and ARB discontinued Continue amlodipine Hyponatremia secondary to hyperglycemia Improved Uncontrolled type 2 diabetes A1c-14 Metformin held secondary to MICKEY Accu-Cheks reviewed Continue glipizide Continue insulin sliding scale coverage I had a long discussion with the patient regarding the importance of good control of diabetes Morbid obesity Extensive counseling done on weight loss, diet, and exercise Patient states that she lost 90 pounds in the past 4 months intentionally Objective - Constitutional Vitals: Vital Signs - 12hr 04/27/21 04/28/21 04/28/21 23:30 03:37 08:12 Temperature 98.5 F 98.6 F Pulse Rate 79 82 Pulse Rate [ 81 Anterior Bilateral Throughout] Respiratory 16 18 Rate Respiratory 20 Rate [Anterior Bilateral Throughout] Blood Pressure 123/74 143/89 O2 Sat by Pulse 95 96 Oximetry General appearance: Present: no acute distress, obese - EENT Eyes: PERRL, EOM intact ENT: hearing intact, clear oral mucosa - Neck Neck: supple, normal ROM - Respiratory Respiratory effort: normal Respiratory: bilateral: CTA, diminished - Cardiovascular Rhythm: regular Heart Sounds: Present: S1 & S2 Extremities: No edema - Gastrointestinal General gastrointestinal: Present: soft, tender (Over the I&D site) Rectal Exam: deferred - Integumentary Integumentary: clear - Musculoskeletal Musculoskeletal: strength equal bilaterally - Neurologic Neurologic: no focal deficits - Psychiatric Psychiatric: appropriate mood/affect - Labs CBC & Chem 7: 04/27/21 03:51 04/28/21 04:46 Labs: Abnormal lab results 04/27/21 04/27/21 04/27/21 Range/Units 12:33 14:05 15:56 Potassium (3.6-5.0) mmol/L Creatinine (0.6-1.2) mg/dL Glucose (65-100) mg/dL POC Glucose 278 H 296 H (70-105) mg/dL Urine Creatinine 65.0 H (0.1-20.0) mg/dL 04/27/21 04/28/21 04/28/21 Range/Units 22:45 04:46 07:58 Potassium 3.4 L (3.6-5.0) mmol/L Creatinine 2.0 H (0.6-1.2) mg/dL Glucose 126 H (65-100) mg/dL POC Glucose 110 H 197 H (70-105) mg/dL Urine Creatinine (0.1-20.0) mg/dL
[2021-04-28] MEDS: amLODIPine 5 MG TAB PO SCH (10:18)
[2021-04-28] MEDS: DOCUSATE SODIUM 100 MG CAP PO SCH ×2 (10:18→21:43)
[2021-04-28] MEDS: FAMOTIDINE 20 MG TAB PO SCH (10:18)
[2021-04-28] MEDS: POLYETHYLENE GLYCOL 3350 17 GM POWDER PO SCH (10:18)
[2021-04-28] MEDS: cephALEXin 500 MG CAP PO SCH ×2 (10:19→21:43)
--- NOTE | 2021-04-28 11:45 | Progress Note ---
Assessment and Plan Impression * Acute kidney injury. Baseline creatinine 0.8 * Abdominal wall abscess * Hypertension * Diabetes * Morbid obesity * Hypokalemia Recommendations * Etiology of acute kidney injury most likely multifactorial. Probably due to diclofenac as well as infection. She may have a prerenal component as well. Need to rule out interstitial nephritis as well * Her urine does not show any dipstick blood or protein. Urine electrolytes also not consistent with a prerenal state. Urine is negative for eosinophils also. * Continue to hold Metformin, diclofenac as well as thiazide diuretic * Avoid nephrotoxins * Monitor fluid status and electrolytes closely Subjective Date of service: 04/28/21 Interval history: Patient is comfortable. Denies any shortness of breath. No nausea vomiting or diarrhea. Objective - Vital Signs Vital signs: Vital Signs - 12hr 04/28/21 04/28/21 04/28/21 03:37 08:12 11:11 Temperature 98.6 F Pulse Rate 82 Pulse Rate [ 81 Anterior Bilateral Throughout] Respiratory 18 Rate Respiratory 20 Rate [Anterior Bilateral Throughout] Blood Pressure 143/89 O2 Sat by Pulse 96 98 Oximetry - General Appearance General appearance: well-developed, well-nourished, appears stated age, obese EENT: PERRL, mucous membranes moist Neck: no JVD, no thyromegaly, no carotid bruit, supple Respiratory: Present: Clear to Ascultation Cardiology: regular, normal heart rate, S1S2, no murmurs Gastrointestinal: normoactive bowel sounds, other (Small dressing noted in a bdominal wall) - Lab 04/27/21 03:51 04/28/21 04:46 Most recent lab results Calcium 8.7 mg/dL (8.4-10.2) 04/28/21 04:46 Urine Creatinine 65.0 mg/dL (0.1-20.0) H 04/27/21 14:05 Urine Sodium 93 mmol/L 04/27/21 14:05 Medications & Allergies - Medications Allergies/Adverse Reactions: Allergies No Known Allergies Allergy (Verified 12/24/18 14:40) Home Medications: Home Medications Medication Instructions Recorded Confirmed Last Taken Type hydroCHLOROthiazide 12.5 mg PO DAILY #30 cap 07/16/20 Unknown Rx [Hydrochlorothiazide] metFORMIN [Glucophage] 500 mg PO QDAY #30 07/16/20 Unknown Rx Butalb/Acetamin/Caff 50-325-40 1 each PO Q8H PRN #10 tablet 09/23/20 Unknown Rx [Fioricet 50-325-40] Diclofenac Sodium 75 mg PO BID PRN 7 Days #14 09/23/20 Unknown Rx tablet. Acetaminophen [Tylenol] 500 mg PO Q6HR PRN #30 tablet 10/01/20 Unknown Rx methOCARBAMOL [Robaxin TAB] 750 mg PO Q8H PRN #30 tablet 10/01/20 Unknown Rx traMADoL [Ultram] 50 mg PO Q6HR PRN #12 tablet 10/01/20 Unknown Rx Clindamycin [Clindamycin CAP] 300 mg PO Q8H #30 cap 04/21/21 Unknown Rx Ketorolac [Toradol] 10 mg PO Q6H PRN #12 tablet 04/21/21 Unknown Rx hydroCHLOROthiazide [HCTZ] 25 mg PO QDAY #30 tablet 04/21/21 Unknown Rx metFORMIN [Glucophage] 500 mg PO BID #60 tablet 04/21/21 Unknown Rx Active Medications: Generic Name Dose Route Start Last Admin Trade Name Freq PRN Reason Stop Dose Admin Acetaminophen 650 mg 04/25/21 04:38 Acetaminophen 325 Mg Tab PO Q4H PRN Pain MILD(1-3)/Fever >100.5/YARBROUGH Albuterol 2.5 mg 04/25/21 04:38 Albuterol 2.5 Mg/3 Ml Nebu IH Q4HRT PRN Shortness Of Breath Albuterol/Ipratropium 1 ampul 04/25/21 08:00 04/28/21 07:56 Ipratropium/Albuterol Sulfate 3 Ml Ampul.Neb IH 1 ampul Q6HRT SILVANO Administration Amlodipine Besylate 5 mg 04/27/21 10:00 04/28/21 10:18 Amlodipine 5 Mg Tab PO 5 mg QDAY SILVANO Administration Cephalexin 500 mg 04/28/21 11:00 04/28/21 10:19 Cephalexin 500 Mg Cap PO 500 mg Q12HR SILVANO Administration Protocol Dextrose 0 ml 04/25/21 04:38 Dextrose 50% In Water (25gm) 50 Ml Syringe IV Q30MIN PRN Hypoglycemia Protocol Docusate Sodium 100 mg 04/26/21 10:00 04/28/21 10:18 Docusate Sodium 100 Mg Cap PO Not Given BID SILVANO Famotidine 20 mg 04/27/21 10:00 04/28/21 10:18 Famotidine 20 Mg Tab PO 20 mg DAILY SIL[facility]ANO Administration Glipizide 5 mg 04/26/21 17:00 04/28/21 08:25 Glipizide 5 Mg Tab PO 5 mg BIDDIAB SILVANO Administration Heparin Sodium (Porcine) 5,000 unit 04/25/21 06:00 04/28/21 05:32 Heparin 5,000 Unit/1 Ml Vial SUB-Q 5,000 unit Q8HR SIL[facility]ANO Administration Hydralazine HCl 10 mg 04/25/21 04:42 Hydralazine 20 Mg/1 Ml Inj IV Q6H PRN htn Sodium Chloride 1,000 mls @ 100 mls/hr 04/25/21 04:45 04/25/21 06:04 Nacl 0.9% 1000 Ml IV 100 mls/hr DIRECT SILVANO Administration Insulin Human Regular 0 units 04/25/21 16:30 04/28/21 08:26 Insulin Regular, Human 100 Units/1 Ml SUB-Q 2 units ACHS SIL[facility]ANO Administration Protocol Metoclopramide HCl 5 mg 04/27/21 16:30 04/28/21 08:25 Metoclopramide 10 Mg/2 Ml Inj IV 5 mg ACHS SIL[facility]ANO Administration Morphine Sulfate 2 mg 04/25/21 04:38 04/27/21 21:18 Morphine 2 Mg/1 Ml Inj IV 2 mg Q4H PRN Administration Pain , Severe (7-10) Ondansetron HCl 4 mg 04/26/21 15:07 04/27/21 10:30 Ondansetron 4 Mg/2 Ml Inj IV 4 mg Q4H PRN Administration Nausea And Vomiting Polyethylene Glycol 17 gm 04/26/21 10:00 04/28/21 10:18 Polyethylene Glycol 3350 17 Gm Powder PO Not Given QDAY SILVANO Scopolamine 1 each 04/26/21 10:00 04/26/21 10:51 Scopolamine Transdermal Patch 72 Hr TD 1 each Q3D S[facility]ANO Administration Sodium Chloride 10 ml 04/25/21 10:00 04/28/21 10:20 Sodium Chloride 0.9% 10 Ml Flush Syringe IV 10 ml BID SILVANO Administration Sodium Chloride 10 ml 04/25/21 04:38 04/25/21 06:04 Sodium Chloride 0.9% 10 Ml Flush Syringe IV 10 ml PRN PRN Administration LINE FLUSH Tramadol HCl 50 mg 04/25/21 04:40 04/26/21 12:23 Tramadol 50 Mg Tab PO 50 mg Q6H PRN Administration PAIN (4-6)
[2021-04-28] MEDS ORDERED: cephALEXin 500 MG CAP PO SCH (12:00)
[2021-04-28] MEDS ORDERED: PIPERACILLIN/TAZOBACTAM 3.375 3.375 GM/50 ML BAG IV SCH (14:00)
[2021-04-28] MEDS: MORPHINE 2 MG/1 ML INJ IV PRN (15:05)
[2021-04-29] MEDS: HEPARIN 5,000 UNIT/1 ML VIAL SUB-Q SCH ×3 (05:18→23:08)
[2021-04-29 05:55] LABS: Calcium 8.7 mg/dL (8.4-10.2)
[2021-04-29] MEDS ORDERED: POTASSIUM CHLORIDE ER 20 MEQ TAB PO NR (08:29)
[2021-04-29] MEDS: INSULIN REGULAR, HUMAN 100 UNITS/1 ML SUB-Q SCH ×4 (08:43→22:00)
[2021-04-29] MEDS: amLODIPine 5 MG TAB PO SCH (10:34)
[2021-04-29] MEDS: glipiZIDE 5 MG TAB PO SCH ×2 (10:34→17:56)
[2021-04-29] MEDS: FAMOTIDINE 20 MG TAB PO SCH (10:34)
[2021-04-29] MEDS: METOPROLOL TARTRATE 25 MG TAB PO SCH ×2 (10:34→23:07)
[2021-04-29] MEDS: cephALEXin 500 MG CAP PO SCH ×2 (10:38→23:06)
[2021-04-29] MEDS: POLYETHYLENE GLYCOL 3350 17 GM POWDER PO SCH (10:42)
[2021-04-29] MEDS: METOCLOPRAMIDE 10 MG/2 ML INJ IV SCH ×2 (10:42→11:15)
[2021-04-29] MEDS: DOCUSATE SODIUM 100 MG CAP PO SCH ×2 (10:42→23:07)
--- NOTE | 2021-04-29 11:45 | Progress Note ---
Subjective Date of service: 04/29/21 Interval history: History of present illness: 46-year-old female with past medical history of uncontrolled diabetes, hypertension and asthma was brought to the emergency room because of abdominal wall cellulitis and abscess that began a week ago. Initially it started as a small lump which she reports that she used alcohol a needle and and had a small amount of drainage. Patient was evaluated in the emergency department on 04/20/2021 and diagnosed with cellulitis of the abdominal wall at that time and was started on clindamycin. She reports that she has been taking the clindamycin as prescribed 3 times a day. She states that it has become more swollen, more red, more warm to touch and she began having a subjective fever last night. She states that she also has associated nausea and has had a couple episodes of vomiting. She denies any drainage or diarrhea. In the emergency room CT scan of the abdomen pelvis showed severe cellulitis of the right lower quadrant anterior abdominal wall but there is a 5.3 cm mixed fluid and gas collection concerning for abscess 04/26 patient is alert and oriented, complains of pain in the operated site, also complains of nausea and vomiting. Denies fever or chills. Discussed with general surgery Dr. Goins. Possible discharge tomorrow 04/27 patient is alert and oriented and complains of nausea and vomiting whenever she tries to eat. She denies any fever or chills or flank pain. Lab results r mary jane. Nephrology consulted 04/28 patient not in any distress, nausea and vomiting a whole lot better and states she had one episode of small emesis since yesterday. Patient denies any fever or chills. Denies chest pain or shortness of breath. lab results reviewed Nephrology note reviewed 04/29 alert and oriented, not in any distress, states she had 2 episodes of vomiting yesterday, complains of mild nausea, lab results reviewed, nephrology note reviewed, medications adjusted Assessment and plan Abdominal wall abscess/cellulitis Status post I&D DC present IV antibiotics Continue Keflex p.o. Drain removed Nausea and vomiting-improving ? gastroparesis We will stop IV Reglan and change to p.o. Acute kidney injury Lab results reviewed Serum creatinine is 1.9 this morning Nephrology consulted and note reviewed Avoid nephrotoxins Monitor renal function Hypertension-fair HCTZ discontinued Patient states that she was taking lisinopril, amlodipine and HCTZ at home Continue amlodipine and beta-luis Hyponatremia secondary to hyperglycemia Improved Uncontrolled type 2 diabetes A1c-14 Metformin held secondary to MICKEY Accu-Cheks reviewed Continue glipizide Continue insulin sliding scale coverage I had a long discussion with the patient regarding the importance of good contro l of diabetes Morbid obesity Extensive counseling done on weight loss, diet, and exercise Patient states that she lost 90 pounds in the past 4 months intentionally DVT prophylaxis Heparin subcu Discharge plans We will discharge when cleared by nephrology Objective - Constitutional Vitals: Vital Signs - 12hr 04/29/21 04/29/21 04/29/21 03:00 03:57 04:00 Temperature 98.9 F Pulse Rate 81 89 Respiratory 16 Rate Blood Pressure 172/102 O2 Sat by Pulse 98 96 Oximetry 04/29/21 04/29/21 04:03 09:19 Temperature 98.9 F 98.2 F Pulse Rate 127 H 75 Respiratory 18 18 Rate Blood Pressure 165/101 138/76 O2 Sat by Pulse 84 97 Oximetry General appearance: Present: no acute distress, obese - EENT Eyes: PERRL, EOM intact ENT: hearing intact, clear oral mucosa - Neck Neck: supple, normal ROM - Respiratory Respiratory effort: normal Respiratory: bilateral: CTA, diminished - Cardiovascular Rhythm: regular Heart Sounds: Present: S1 & S2 Extremities: No edema - Gastrointestinal General gastrointestinal: Present: soft Rectal Exam: deferred - Integumentary Integumentary: clear - Musculoskeletal Musculoskeletal: strength equal bilaterally - Neurologic Neurologic: no focal deficits - Psychiatric Psychiatric: appropriate mood/affect - Labs CBC & Chem 7: 04/27/21 03:51 04/29/21 05:21 Labs: Abnormal lab results 04/28/21 04/28/21 04/28/21 Range/Units 11:50 16:16 20:37 Potassium (3.6-5.0) mmol/L Creatinine (0.6-1.2) mg/dL Glucose (65-100) mg/dL POC Glucose 139 H 126 H 180 H (70-105) mg/dL 04/29/21 Range/Units 05:21 Potassium 3.5 L (3.6-5.0) mmol/L Creatinine 1.9 H (0.6-1.2) mg/dL Glucose 202 H (65-100) mg/dL POC Glucose (70-105) mg/dL
--- NOTE | 2021-04-29 12:26 | Progress Note ---
Assessment and Plan Impression * Acute kidney injury. Baseline creatinine 0.8 * Abdominal wall abscess * Hypertension * Diabetes * Morbid obesity * Hypokalemia Recommendations * Etiology of acute kidney injury most likely multifactorial. Probably due to diclofenac as well as infection. She may have a prerenal component as well. Need to rule out interstitial nephritis as well * Her urine does not show any dipstick blood or protein. Urine electrolytes also not consistent with a prerenal state. Urine is negative for eosinophils also. * Continue to hold Metformin, diclofenac as well as thiazide diuretic * Avoid nephrotoxins * Monitor fluid status and electrolytes closely * Discontinue IV fluid * No objection to discharge from renal standpoint. She will however need outpatient renal follow-up Subjective Date of service: 04/29/21 Interval history: Patient is comfortable. Denies any shortness of breath. No nausea vomiting or diarrhea. Objective - Vital Signs Vital signs: Vital Signs - 12hr 04/29/21 04/29/21 04/29/21 03:00 03:57 04:00 Temperature 98.9 F Pulse Rate 81 89 Respiratory 16 Rate Blood Pressure 172/102 O2 Sat by Pulse 98 96 Oximetry 04/29/21 04/29/21 04:03 09:19 Temperature 98.9 F 98.2 F Pulse Rate 127 H 75 Respiratory 18 18 Rate Blood Pressure 165/101 138/76 O2 Sat by Pulse 84 97 Oximetry - General Appearance General appearance: well-developed, well-nourished, appears stated age, obese EENT: PERRL, mucous membranes moist Neck: no JVD, no thyromegaly Respiratory: Present: Clear to Ascultation Cardiology: regular, normal heart rate Gastrointestinal: normoactive bowel sounds, other (Small dressing in her abdominal wall) Integumentary: other (No edema) - Lab 04/27/21 03:51 04/29/21 05:21 Most recent lab results Calcium 8.7 mg/dL (8.4-10.2) 04/29/21 05:21 Urine Creatinine 65.0 mg/dL (0.1-20.0) H 04/27/21 14:05 Urine Sodium 93 mmol/L 04/27/21 14:05 Medications & Allergies - Medications Allergies/Adverse Reactions: Allergies No Known Allergies Allergy (Verified 12/24/18 14:40) Home Medications: Home Medications Medication Instructions Recorded Confirmed Last Taken Type hydroCHLOROthiazide 12.5 mg PO DAILY #30 cap 07/16/20 Unknown Rx [Hydrochlorothiazide] metFORMIN [Glucophage] 500 mg PO QDAY #30 07/16/20 Unknown Rx Butalb/Acetamin/Caff 50-325-40 1 each PO Q8H PRN #10 tablet 09/23/20 Unknown Rx [Fioricet 50-325-40] Diclofenac Sodium 75 mg PO BID PRN 7 Days #14 09/23/20 Unknown Rx tabletSonnydr Acetaminophen [Tylenol] 500 mg PO Q6HR PRN #30 tablet 10/01/20 Unknown Rx methOCARBAMOL [Robaxin TAB] 750 mg PO Q8H PRN #30 tablet 10/01/20 Unknown Rx traMADoL [Ultram] 50 mg PO Q6HR PRN #12 tablet 10/01/20 Unknown Rx Clindamycin [Clindamycin CAP] 300 mg PO Q8H #30 cap 04/21/21 Unknown Rx Ketorolac [Toradol] 10 mg PO Q6H PRN #12 tablet 04/21/21 Unknown Rx hydroCHLOROthiazide [HCTZ] 25 mg PO QDAY #30 tablet 04/21/21 Unknown Rx metFORMIN [Glucophage] 500 mg PO BID #60 tablet 04/21/21 Unknown Rx Active Medications: Generic Name Dose Route Start Last Admin Trade Name Freq PRN Reason Stop Dose Admin Acetaminophen 650 mg 04/25/21 04:38 04/29/21 05:18 Acetaminophen 325 Mg Tab PO 650 mg Q4H PRN Administration Pain MILD(1-3)/Fever >100.5/YARBROUGH Albuterol 2.5 mg 04/25/21 04:38 Albuterol 2.5 Mg/3 Ml Nebu IH Q4HRT PRN Shortness Of Breath Amlodipine Besylate 5 mg 04/27/21 10:00 04/29/21 10:34 Amlodipine 5 Mg Tab PO 5 mg QDAY SILVANO Administration Cephalexin 500 mg 04/28/21 11:00 04/29/21 10:38 Cephalexin 500 Mg Cap PO 500 mg Q12HR SILVANO Administration Protocol Dextrose 0 ml 04/25/21 04:38 Dextrose 50% In Water (25gm) 50 Ml Syringe IV Q30MIN PRN Hypoglycemia Protocol Docusate Sodium 100 mg 04/26/21 10:00 04/29/21 10:42 Docusate Sodium 100 Mg Cap PO Not Given BID SILVANO Famotidine 20 mg 04/27/21 10:00 04/29/21 10:34 Famotidine 20 Mg Tab PO 20 mg DAILY SILVANO Administration Glipizide 5 mg 04/26/21 17:00 04/29/21 10:34 Glipizide 5 Mg Tab PO 5 mg BIDDIAB SILVANO Administration Heparin Sodium (Porcine) 5,000 unit 04/25/21 06:00 04/29/21 05:18 Heparin 5,000 Unit/1 Ml Vial SUB-Q 5,000 unit Q8HR SILVANO Administration Hydralazine HCl 10 mg 04/25/21 04:42 Hydralazine 20 Mg/1 Ml Inj IV Q6H PRN htn Sodium Chloride 1,000 mls @ 100 mls/hr 04/25/21 04:45 04/25/21 06:04 Nacl 0.9% 1000 Ml IV 100 mls/hr DIRECT SILVANO Administration Insulin Human Regular 0 units 04/25/21 16:30 04/29/21 08:43 Insulin Regular, Human 100 Units/1 Ml SUB-Q Not Given ACHS [facility] Protocol Metoclopramide HCl 5 mg 04/29/21 12:00 Metoclopramide 10 Mg Tab PO ACHS [facility] Metoprolol Tartrate 25 mg 04/29/21 10:00 04/29/21 10:34 Metoprolol Tartrate 25 Mg Tab PO 25 mg BID SILVANO Administration Morphine Sulfate 2 mg 04/25/21 04:38 04/28/21 15:05 Morphine 2 Mg/1 Ml Inj IV 2 mg Q4H PRN Administration Pain , Severe (7-10) Ondansetron HCl 4 mg 04/26/21 15:07 04/27/21 10:30 Ondansetron 4 Mg/2 Ml Inj IV 4 mg Q4H PRN Administration Nausea And Vomiting Polyethylene Glycol 17 gm 04/26/21 10:00 04/29/21 10:42 Polyethylene Glycol 3350 17 Gm Powder PO Not Given QDAY SILVANO Scopolamine 1 each 04/26/21 10:00 04/26/21 10:51 Scopolamine Transdermal Patch 72 Hr TD 1 each Q3D SILVANO Administration Sodium Chloride 10 ml 04/25/21 10:00 04/28/21 21:44 Sodium Chloride 0.9% 10 Ml Flush Syringe IV 10 ml BID SILVANO Administration Sodium Chloride 10 ml 04/25/21 04:38 04/25/21 06:04 Sodium Chloride 0.9% 10 Ml Flush Syringe IV 10 ml PRN PRN Administration LINE FLUSH Tramadol HCl 50 mg 04/25/21 04:40 04/26/21 12:23 Tramadol 50 Mg Tab PO 50 mg Q6H PRN Administration PAIN (4-6)
[2021-04-29] MEDS: SCOPOLAMINE TRANSDERMAL PATCH 72 HR TD SCH (12:55)
[2021-04-29] MEDS: MORPHINE 2 MG/1 ML INJ IV PRN ×2 (12:56→17:55)
[2021-04-29] MEDS: METOCLOPRAMIDE 10 MG TAB PO SCH ×2 (17:55→23:06)
[2021-04-30] MEDS: HEPARIN 5,000 UNIT/1 ML VIAL SUB-Q SCH (05:49)
[2021-04-30 06:19] LABS: Calcium 8.9 mg/dL (8.4-10.2)
[2021-04-30] MEDS: glipiZIDE 5 MG TAB PO SCH (07:58)
[2021-04-30] MEDS: METOCLOPRAMIDE 10 MG TAB PO SCH ×2 (07:58→08:03)
[2021-04-30 08:06] VITALS: BP 138/73
[2021-04-30] MEDS: cephALEXin 500 MG CAP PO SCH (09:06)
[2021-04-30] MEDS: amLODIPine 5 MG TAB PO SCH (09:06)
[2021-04-30] MEDS: METOPROLOL TARTRATE 25 MG TAB PO SCH (09:06)
[2021-04-30] MEDS: FAMOTIDINE 20 MG TAB PO SCH (09:06)
[2021-04-30] MEDS: DOCUSATE SODIUM 100 MG CAP PO SCH (09:07)
[2021-04-30] MEDS: POLYETHYLENE GLYCOL 3350 17 GM POWDER PO SCH (09:08)
[2021-04-30] MEDS: INSULIN REGULAR, HUMAN 100 UNITS/1 ML SUB-Q SCH (09:12)
[2021-04-30] MEDS: MORPHINE 2 MG/1 ML INJ IV PRN (09:37)
--- NOTE | 2021-04-30 10:29 | Discharge Summary ---
Providers - Providers Date of Admission: 04/26/21 16:29 Date of discharge: 04/30/21 Attending physician: NICOLE ISRAEL 04/25/21 00:45 Consult to Physician [CONS] Stat Comment: Consulting Provider: WADE HERNANDEZ Physician Instructions: Reason For Exam: abdominal abscess/cellulitis 04/25/21 04:38 Consult to Dietitian/Nutrition [CONS] Routine Physician Instructions: Reason For Exam: Reason for Consult: Diet education 04/25/21 09:26 Consult to Case Management [CONS] Routine Services Needed at Discharge: Home Health Services Notified:: n/a 04/27/21 08:08 Consult to Physician [CONS] Routine Comment: Consulting Provider: MARK BURK Physician Instructions: Reason For Exam: MICKEY Primary care physician: PHOTOSTAT OPERATOR Hospitalization Reason for admission: Abdominal wall abscess Condition: Fair Procedures: I&D of the abscess Hospital course: History of present illness: 46-year-old female with past medical history of uncontrolled diabetes, hypertension and asthma was brought to the emergency room because of abdominal wall cellulitis and abscess that began a week ago. Initially it started as a small lump which she reports that she used alcohol a needle and and had a small amount of drainage. Patient was evaluated in the emergency department on 04/20/2021 and diagnosed with cellulitis of the abdominal wall at that time and was started on clindamycin. She reports that she has been taking the clindamycin as prescribed 3 times a day. She states that it has become more swollen, more red, more warm to touch and she began having a subjective fever last night. She states that she also has associated nausea and has had a couple episodes of vomiting. She denies any drainage or diarrhea. In the emergency room CT scan of the abdomen pelvis showed severe cellulitis of the right lower quadrant anterior abdominal wall but there is a 5.3 cm mixed fluid and gas collection concerning for abscess 04/26 patient is alert and oriented, complains of pain in the operated site, also complains of nausea and vomiting. Denies fever or chills. Discussed with general surgery Dr. Hernandez. Possible discharge tomorrow 04/27 patient is alert and oriented and complains of nausea and vomiting whenever she tries to eat. She denies any fever or chills or flank pain. Lab results reviewed. Nephrology consulted 04/28 patient not in any distress, nausea and vomiting a whole lot better and states she had one episode of small emesis since yesterday. Patient denies any fever or chills. Denies chest pain or shortness of breath. lab results reviewed Nephrology note reviewed 04/29 alert and oriented, not in any distress, states she had 2 episodes of vomiting yesterday, complains of mild nausea, lab results reviewed, nephrology note reviewed, medications adjusted Assessment and plan Abdominal wall abscess/cellulitis Status post I&D Continue Keflex p.o.x 5 days Nausea and vomiting ? gastroparesis Outpatient follow-up with GI We will defer treatment with Reglan for now as the nausea and vomiting have improved Acute kidney injury vs acute on chronic kidney disease Cleared by nephrology for discharge Lab results reviewed Serum creatinine is 1.9 unchanged Nephrology consulted and note reviewed Avoid nephrotoxins Hypertension-fair HCTZ discontinued Patient states that she was taking lisinopril, amlodipine and HCTZ at home Continue amlodipine and beta-luis Hyponatremia secondary to hyperglycemia Improved Uncontrolled type 2 diabetes A1c-14 Metformin held secondary to ckd Accu-Cheks reviewed Continue glipizide Patient is refusing to take insulin States that she will follow-up with her PCP I had a long discussion with the patient regarding the importance of good control of diabetes Morbid obesity Extensive counseling done on weight loss, diet, and exercise Patient states that she lost 90 pounds in the past 4 months intentionally Disposition: DC-01 TO HOME OR SELFCARE Final Discharge Diagnosis (Prints w/discharge instructions): Abdominal wall abscess Time spent for discharge: 38 min Core Measure Documentation - Palliative Care Palliative Care/ Comfort Measures: Not Applicable - Core Measures Any of the following diagnoses?: none Exam - Constitutional Vitals: Temp Pulse Resp BP Pulse Ox 97.9 F 78 20 138/73 96 04/30/21 07:45 04/30/21 07:45 04/30/21 09:37 04/30/21 07:45 04/30/21 07:45 General appearance: Present: no acute distress, obese - EENT Eyes: Present: PERRL, EOM intact ENT: hearing intact, clear oral mucosa - Neck Neck: Present: supple, normal ROM - Respiratory Respiratory effort: normal Respiratory: bilateral: CTA - Cardiovascular Rhythm: regular Heart Sounds: Present: S1 & S2 - Extremities Extremities: No edema - Abdominal General gastrointestinal: Present: soft, non-tender - Rectal Rectal Exam: deferred - Integumentary Integumentary: Present: clear - Musculoskeletal Musculoskeletal: strength equal bilaterally - Psychiatric Psychiatric: appropriate mood/affect - Neurologic Neurologic: no focal deficits Plan Activity: advance as tolerated Weight Bearing Status: Weight Bear as Tolerated Diet: regular, low fat, low cholesterol, low salt, diabetic Plan of Treatment: Patient should call and make follow up appointment in wound care clinic [phone] for 1 week. Follow up with: PRIMARY MD BARB [Primary Care Provider] - 7 Days GRETTA LUGO MD [Staff Physician] - 7 Days Prescriptions: amLODIPine 5 mg PO QDAY #30 tablet glipiZIDE [Glucotrol] 10 mg PO BIDDIAB #60 tablet cephALEXin [Keflex] 500 mg PO Q12HR #10 capsule Metoprolol [Lopressor TAB] 25 mg PO BID #60 tablet
--- NOTE | 2021-04-30 10:32 | Progress Note ---
Assessment and Plan Impression * Acute kidney injury. Baseline creatinine 0.8 * Abdominal wall abscess * Hypertension * Diabetes * Morbid obesity * Hypokalemia Recommendations * Etiology of acute kidney injury most likely multifactorial. Probably due to diclofenac as well as infection. She may have a prerenal component as well. Need to rule out interstitial nephritis as well * Her urine does not show any dipstick blood or protein. Urine electrolytes also not consistent with a prerenal state. Urine is negative for eosinophils also. * Continue to hold Metformin, diclofenac as well as thiazide diuretic * Avoid nephrotoxins * Monitor fluid status and electrolytes closely * No objection to discharge from renal standpoint. She will however need outpatient renal follow-up Subjective Date of service: 04/30/21 Interval history: Patient is comfortable today. Denies any shortness of breath. No nausea vomiting or diarrhea. Objective - Vital Signs Vital signs: Vital Signs - 12hr 04/29/21 04/29/21 04/30/21 23:07 23:28 00:17 Temperature 98.7 F Pulse Rate 77 76 Respiratory 14 Rate Blood Pressure 153/89 167/98 O2 Sat by Pulse 98 99 Oximetry 04/30/21 04/30/21 04/30/21 01:32 04:20 07:45 Temperature 98.5 F 97.9 F Pulse Rate 76 81 78 Respiratory 16 20 Rate Blood Pressure 167/98 150/88 138/73 O2 Sat by Pulse 97 96 Oximetry 04/30/21 09:37 Temperature Pulse Rate Respiratory 20 Rate Blood Pressure O2 Sat by Pulse Oximetry - General Appearance General appearance: well-developed, well-nourished, appears stated age, obese EENT: PERRL, mucous membranes moist Neck: no JVD, no thyromegaly, no carotid bruit, supple Respiratory: Present: Clear to Ascultation Cardiology: regular, normal heart rate Gastrointestinal: normal, normoactive bowel sounds Integumentary: no rash, other (No edema) - Lab 04/27/21 03:51 04/30/21 04:49 Most recent lab results Calcium 8.9 mg/dL (8.4-10.2) 04/30/21 04:49 Urine Creatinine 65.0 mg/dL (0.1-20.0) H 04/27/21 14:05 Urine Sodium 93 mmol/L 04/27/21 14:05 Medications & Allergies - Medications Allergies/Adverse Reactions: Allergies No Known Allergies Allergy (Verified 12/24/18 14:40) Home Medications: Home Medications Medication Instructions Recorded Confirmed Last Taken Type hydroCHLOROthiazide 12.5 mg PO DAILY #30 cap 07/16/20 Unknown Rx [Hydrochlorothiazide] metFORMIN [Glucophage] 500 mg PO QDAY #30 07/16/20 Unknown Rx Butalb/Acetamin/Caff 50-325-40 1 each PO Q8H PRN #10 tablet 09/23/20 Unknown Rx [Fioricet 50-325-40] Diclofenac Sodium 75 mg PO BID PRN 7 Days #14 09/23/20 Unknown Rx tablet. Acetaminophen [Tylenol] 500 mg PO Q6HR PRN #30 tablet 10/01/20 Unknown Rx methOCARBAMOL [Robaxin TAB] 750 mg PO Q8H PRN #30 tablet 10/01/20 Unknown Rx traMADoL [Ultram] 50 mg PO Q6HR PRN #12 tablet 10/01/20 Unknown Rx Clindamycin [Clindamycin CAP] 300 mg PO Q8H #30 cap 04/21/21 Unknown Rx Ketorolac [Toradol] 10 mg PO Q6H PRN #12 tablet 04/21/21 Unknown Rx hydroCHLOROthiazide [HCTZ] 25 mg PO QDAY #30 tablet 04/21/21 Unknown Rx metFORMIN [Glucophage] 500 mg PO BID #60 tablet 04/21/21 Unknown Rx Active Medications: Generic Name Dose Route Start Last Admin Trade Name Freq PRN Reason Stop Dose Admin Acetaminophen 650 mg 04/25/21 04:38 04/29/21 05:18 Acetaminophen 325 Mg Tab PO 650 mg Q4H PRN Administration Pain MILD(1-3)/Fever >100.5/YARBROUGH Albuterol 2.5 mg 04/25/21 04:38 Albuterol 2.5 Mg/3 Ml Nebu IH Q4HRT PRN Shortness Of Breath Amlodipine Besylate 5 mg 04/27/21 10:00 04/30/21 09:06 Amlodipine 5 Mg Tab PO 5 mg QDAY SILVANO Administration Cephalexin 500 mg 04/28/21 11:00 04/30/21 09:06 Cephalexin 500 Mg Cap PO 500 mg Q12HR SILVANO Administration Protocol Dextrose 0 ml 04/25/21 04:38 Dextrose 50% In Water (25gm) 50 Ml Syringe IV Q30MIN PRN Hypoglycemia Protocol Docusate Sodium 100 mg 04/26/21 10:00 04/30/21 09:07 Docusate Sodium 100 Mg Cap PO Not Given BID SILVANO Famotidine 20 mg 04/27/21 10:00 04/30/21 09:06 Famotidine 20 Mg Tab PO 20 mg DAILY SILVANO Administration Glipizide 5 mg 04/26/21 17:00 04/30/21 07:58 Glipizide 5 Mg Tab PO 5 mg BIDDIAB SILVANO Administration Heparin Sodium (Porcine) 5,000 unit 04/25/21 06:00 04/30/21 05:49 Heparin 5,000 Unit/1 Ml Vial SUB-Q Not Given Q8HR SILVANO Hydralazine HCl 10 mg 04/25/21 04:42 04/30/21 01:32 Hydralazine 20 Mg/1 Ml Inj IV 10 mg Q6H PRN Administration htn Insulin Human Regular 0 units 04/25/21 16:30 04/30/21 09:12 Insulin Regular, Human 100 Units/1 Ml SUB-Q 3 units ACHS SILVANO Administration Protocol Metoclopramide HCl 5 mg 04/29/21 12:00 04/30/21 08:03 Metoclopramide 10 Mg Tab PO 5 mg ACHS SILVANO Administration Metoprolol Tartrate 25 mg 04/29/21 10:00 04/30/21 09:06 Metoprolol Tartrate 25 Mg Tab PO 25 mg BID SILVANO Administration Morphine Sulfate 2 mg 04/25/21 04:38 04/30/21 09:37 Morphine 2 Mg/1 Ml Inj IV 2 mg Q4H PRN Administration Pain , Severe (7-10) Ondansetron HCl 4 mg 04/26/21 15:07 04/27/21 10:30 Ondansetron 4 Mg/2 Ml Inj IV 4 mg Q4H PRN Administration Nausea And Vomiting Polyethylene Glycol 17 gm 04/26/21 10:00 04/30/21 09:08 Polyethylene Glycol 3350 17 Gm Powder PO Not Given QDAY SILVANO Scopolamine 1 each 04/26/21 10:00 04/29/21 12:55 Scopolamine Transdermal Patch 72 Hr TD 1 each Q3D SILVANO Administration Sodium Chloride 10 ml 04/25/21 10:00 04/29/21 23:13 Sodium Chloride 0.9% 10 Ml Flush Syringe IV 10 ml BID SILVANO Administration Sodium Chloride 10 ml 04/25/21 04:38 04/25/21 06:04 Sodium Chloride 0.9% 10 Ml Flush Syringe IV 10 ml PRN PRN Administration LINE FLUSH Tramadol HCl 50 mg 04/25/21 04:40 04/26/21 12:23 Tramadol 50 Mg Tab PO 50 mg Q6H PRN Administration PAIN (4-6)
== END 2021-04-30 12:11 | disposition home health service (06) | DRG 579 ==
LOC: ED 16:45 → 4A 04-25 00:49 → OBSVTOIN 04-26 16:29
PROVIDERS: ADMIT Hospitalist; ATTEND Internal Medicine
PROC: 0W9F0ZZ Drainage of Abdominal Wall, Open Approach (ICD-10-PCS; principal; 2021-04-25)
DX: L02.211 Cutaneous abscess of abdominal wall (principal); N17.0 Acute kidney failure with tubular necrosis; E87.1 Hypo-osmolality and hyponatremia; Z68.43 Body mass index [BMI] 50.0-59.9, adult; L03.311 Cellulitis of abdominal wall; E11.65 Type 2 diabetes mellitus with hyperglycemia; E66.01 Morbid (severe) obesity due to excess calories; Z71.3 Dietary counseling and surveillance; J45.909 Unspecified asthma, uncomplicated; Z79.84 Long term (current) use of oral hypoglycemic drugs; Z78.9 Other specified health status; Z79.899 Other long term (current) drug therapy; D64.9 Anemia, unspecified; G43.909 Migraine, unspecified, not intractable, without status migrainosus; E87.6 Hypokalemia; E11.22 Type 2 diabetes mellitus with diabetic chronic kidney disease; I12.9 Hypertensive chronic kidney disease with stage 1 through stage 4 chronic kidney disease, or unspecified chronic kidney disease; N18.9 Chronic kidney disease, unspecified; E11.43 Type 2 diabetes mellitus with diabetic autonomic (poly)neuropathy; K31.84 Gastroparesis
CPT/HCPCS: 36415; 74177; 80048; 80053; 80202; 81001; 82140; 82570; 82962; 83036; 84300; 84703; 85025; 85027; 87075; 87116; 89050; 94640; 96365; 96366; 96367; 96375; 96376; G0378; J0360; J1170; J1644; J1815; J2270; J2405; J2543; J2765; J3370; J7030; J7040; Q0162; Q9967

== ENCOUNTER 2021-05-03 18:10 | Emergency (ER) | payer MEDICAID ==
[2021-05-03 18:16] VITALS: BP 140/91
--- NOTE | 2021-05-03 19:11 | Emergency Department Report ---
- General Chief Complaint: Wound/Laceration Stated Complaint: repacking needed Time Seen by Provider: 05/03/21 18:52 Source: patient Mode of arrival: Ambulatory Limitations: No Limitations - History of Present Illness Initial Comments: Patient is a 46-year-old female presents emergency room for packing placement in her abdominal wall. Patient was evaluated in the emergency department on 04/26/2021 and was found to have an abdominal wall abscess and cellulitis. She had a procedure performed by Dr. hernandez for drainage and packing was placed. She states that the packing fell out today. States home health was supposed to come and change her packing and dressing. She states that home health did not show up today. She denies any increasing pain, fever, drainage, vomiting, r edness, increasing swelling. Past medical history of diabetes and hypertension. No allergies to medications. - Related Data Previous Rx's Medication Instructions Recorded Last Taken Type hydroCHLOROthiazide 12.5 mg PO DAILY #30 cap 07/16/20 Unknown Rx [Hydrochlorothiazide] metFORMIN [Glucophage] 500 mg PO QDAY #30 07/16/20 Unknown Rx Butalb/Acetamin/Caff 50-325-40 1 each PO Q8H PRN #10 tablet 09/23/20 Unknown Rx [Fioricet 50-325-40] Acetaminophen [Tylenol] 500 mg PO Q6HR PRN #30 tablet 10/01/20 Unknown Rx metFORMIN [Glucophage] 500 mg PO BID #60 tablet 04/21/21 Unknown Rx Metoprolol [Lopressor TAB] 25 mg PO BID #60 tablet 04/30/21 Unknown Rx amLODIPine 5 mg PO QDAY #30 tablet 04/30/21 Unknown Rx cephALEXin [Keflex] 500 mg PO Q12HR #10 capsule 04/30/21 Unknown Rx glipiZIDE [Glucotrol] 10 mg PO BIDDIAB #60 tablet 04/30/21 Unknown Rx Allergies Allergy/AdvReac Type Severity Reaction Status Date / Time No Known Allergies Allergy Verified 05/03/21 18:12 ED Review of Systems ROS: Stated complaint: repacking needed Other details as noted in HPI Comment: All other systems reviewed and negative ED Past Medical Hx - Past Medical History Hx Hypertension: Yes Hx Diabetes: Yes Hx Headaches / Migraines: Yes (migraines) Hx Asthma: Yes Hx COPD: No Additional medical history: morbid obesity. anemia - Surgical History Additional Surgical History: tubal Ligation - Social History Smoking Status: Never Smoker Substance Use Type: None - Medications Home Medications: Home Medications Medication Instructions Recorded Confirmed Last Taken Type hydroCHLOROthiazide 12.5 mg PO DAILY #30 cap 07/16/20 Unknown Rx [Hydrochlorothiazide] metFORMIN [Glucophage] 500 mg PO QDAY #30 07/16/20 Unknown Rx Butalb/Acetamin/Caff 50-325-40 1 each PO Q8H PRN #10 tablet 09/23/20 Unknown Rx [Fioricet 50-325-40] Acetaminophen [Tylenol] 500 mg PO Q6HR PRN #30 tablet 10/01/20 Unknown Rx metFORMIN [Glucophage] 500 mg PO BID #60 tablet 04/21/21 Unknown Rx Metoprolol [Lopressor TAB] 25 mg PO BID #60 tablet 04/30/21 Unknown Rx amLODIPine 5 mg PO QDAY #30 tablet 04/30/21 Unknown Rx cephALEXin [Keflex] 500 mg PO Q12HR #10 capsule 04/30/21 Unknown Rx glipiZIDE [Glucotrol] 10 mg PO BIDDIAB #60 tablet 04/30/21 Unknown Rx ED Physical Exam - General Limitations: No Limitations General appearance: alert, in no apparent distress - Head Head exam: Present: atraumatic, normocephalic - Eye Eye exam: Present: normal appearance - ENT ENT exam: Present: mucous membranes moist - Neurological Exam Neurological exam: Present: alert, oriented X3 - Psychiatric Psychiatric exam: Present: normal affect, normal mood - Skin Skin exam: Present: warm, dry, other (there is a 2 cm opening present in the mid abdomen which appears clean, dry, intact, no edema, no erythema, no increased warmth, no drainage) ED Course Vital Signs 05/03/21 18:13 Temperature 98.5 F Pulse Rate 80 Respiratory 20 Rate Blood Pressure 140/91 O2 Sat by Pulse 97 Oximetry ED Medical Decision Making - Medical Decision Making Patient is a 46-year-old female presents emergency room for packing placement in her abdominal wall. Patient was evaluated in the emergency department on 04/26/2021 and was found to have an abdominal wall abscess and cellulitis. She had a procedure performed by Dr. hernandez for drainage and packing was placed. She states that the packing fell out today. [facility] was supposed to come and change her packing and dressing. She states that home health did not show up today. She denies any increasing pain, fever, drainage, vomiting, redness, increasing swelling. Past medical history of diabetes and hyperten lilli. No allergies to medications. Vitals are stable. On exam:there is a 2 cm opening present in the mid abdomen which appears clean, dry, intact, no edema, no erythema, no increased warmth, no drainage. No signs of infection at this time. Irrigated with saline and cleansed with Betadine and 1 inch iodoform packing placed and dressing applied. Advised patient Packing needs to be removed in 3 days, please follow-up with the wound clinic or Dr. Hernandez your general surgeon. follow up with a primary care doctor. Please continue to keep area clean, dry, covered. May wash around area with antibacterial soap and water pat dry. No hot tub, no pool, no soaking water. Please continue taking your antibiotics as you are prescribed. Return to emergency room for new or worse symptoms. Critical care attestation.: If time is entered above; I have spent that time in minutes in the direct care of this critically ill patient, excluding procedure time. ED Disposition Clinical Impression: Encounter for wound re-check Disposition: DC-01 TO HOME OR SELFCARE Is pt being admited?: No Does the pt Need Aspirin: No Condition: Stable Instructions: Wound Care, Adult Additional Instructions: Packing needs to be removed in 3 days, please follow-up with the wound clinic or Dr. Hernandez your general surgeon. follow up with a primary care doctor. Please continue to keep area clean, dry, covered. May wash around area with antibacterial soap and water pat dry. No hot tub, no pool, no soaking water. Please continue taking your antibiotics as you are prescribed. Return to emerge ncy room for new or worse symptoms. Referrals: [facility] [Outside] - 2-3 Days WADE HERNANDEZ DO [Staff Physician] - 2-3 Days FELICIANO CANTU MD [Staff Physician] - 2-3 Days Time of Disposition: 19:14 Print Language: DUTCH
== END 2021-05-03 19:00 | disposition home or self-care (01) ==
LOC: ED 18:10
DX: L02.211 Cutaneous abscess of abdominal wall (principal); Z48.00 Encounter for change or removal of nonsurgical wound dressing; I10 Essential (primary) hypertension; E11.9 Type 2 diabetes mellitus without complications; G43.909 Migraine, unspecified, not intractable, without status migrainosus; Z98.51 Tubal ligation status; Z79.899 Other long term (current) drug therapy
CPT/HCPCS: 99282

== ENCOUNTER 2021-08-06 16:51 | Emergency (ER) | payer MEDICAID ==
[2021-08-06] MEDS ORDERED: ONDANSETRON 4 MG/2 ML INJ IV ONE ×2 (17:18→18:44)
[2021-08-06] MEDS ORDERED: SODIUM CHLORIDE 0.9% 1000 ML 1,000 ML IV ONE (17:18)
--- NOTE | 2021-08-06 17:18 | Emergency Department Report ---
ED N/V/D HPI - General Chief complaint: Medical Clearance Stated complaint: VOMITING Time Seen by Provider: 08/06/21 17:15 Source: patient Mode of arrival: Ambulatory Limitations: No Limitations - History of Present Illness Initial comments: 46 yo AA female comes to ER with several day hx of Nausea and vomiting. She states it may have been occurring off and on for longer than that. No abd pain no dysuria no vag bleeding no vag dicharge She has not seen her PCP PMH DM- bg 250 on admit htn obese psh ovarian cyst denies thc or etoh occ cig LMP 10-1 (the nurses state the pt said she wanted a preg test but the pt denied that to provider) Mom killed Dad / cause Pt comes to ER via POV complaint: vomiting -: Gradual, days(s) Description of Vomiting: food contents Associated Abdominal Pain: No Radiation: none Consistency: intermittent Improves with: none Worsens with: none Associated Symptoms: denies other symptoms, nausea/vomiting. denies: myalgias, chest pain, cough, diaphoresis, fever/chills, headaches, loss of appetite, malaise, rash, dysuria, shortness of breath, syncope, weakness - Related Data Previous Rx's Medication Instructions Recorded Last Taken Type hydroCHLOROthiazide 12.5 mg PO DAILY #30 cap 07/16/20 Unknown Rx [Hydrochlorothiazide] Butalb/Acetamin/Caff 50-325-40 1 each PO Q8H PRN #10 tablet 09/23/20 Unknown Rx [Fioricet 50-325-40] metFORMIN [Glucophage] 500 mg PO BID #60 tablet 04/21/21 Unknown Rx Metoprolol [Lopressor TAB] 25 mg PO BID #60 tablet 04/30/21 Unknown Rx amLODIPine 5 mg PO QDAY #30 tablet 04/30/21 Unknown Rx glipiZIDE [Glucotrol] 10 mg PO BIDDIAB #60 tablet 04/30/21 Unknown Rx Ondansetron [Zofran Odt] 4 mg PO Q8HR PRN #10 tab.rapdis 08/06/21 Unknown Rx Allergies Allergy/AdvReac Type Severity Reaction Status Date / Time No Known Allergies Allergy Verified 05/03/21 18:12 ED Review of Systems ROS: Stated complaint: VOMITING Other details as noted in HPI Comment: All other systems reviewed and negative ED Past Medical Hx - Past Medical History Previous Medical History?: Yes Hx Hypertension: Yes Hx Diabetes: Yes Hx Headaches / Migraines: Yes (migraines) Hx Asthma: Yes Hx COPD: No Additional medical history: morbid obesity. anemia - Surgical History Past Surgical History?: Yes Additional Surgical History: tubal Ligation - Family History Family history: no significant - Social History Smoking Status: Never Smoker Substance Use Type: None - Medications Home Medications: Home Medications Medication Instructions Recorded Confirmed Last Taken Type hydroCHLOROthiazide 12.5 mg PO DAILY #30 cap 07/16/20 Unknown Rx [Hydrochlorothiazide] Butalb/Acetamin/Caff 50-325-40 1 each PO Q8H PRN #10 tablet 09/23/20 Unknown Rx [Fioricet 50-325-40] metFORMIN [Glucophage] 500 mg PO BID #60 tablet 04/21/21 Unknown Rx Metoprolol [Lopressor TAB] 25 mg PO BID #60 tablet 04/30/21 Unknown Rx amLODIPine 5 mg PO QDAY #30 tablet 04/30/21 Unknown Rx glipiZIDE [Glucotrol] 10 mg PO BIDDIAB #60 tablet 04/30/21 Unknown Rx Ondansetron [Zofran Odt] 4 mg PO Q8HR PRN #10 tab.rapdis 08/06/21 Unknown Rx ED Physical Exam - General Limitations: No Limitations General appearance: alert, in no apparent distress - Head Head exam: Present: atraumatic, normocephalic - Eye Eye exam: Present: normal appearance - ENT ENT exam: Present: mucous membranes moist - Neck Neck exam: Present: normal inspection - Respiratory Respiratory exam: Present: normal lung sounds bilaterally. Absent: respiratory distress - Cardiovascular Cardiovascular Exam: Present: regular rate, normal rhythm. Absent: systolic murmur, diastolic murmur, rubs, gallop - GI/Abdominal GI/Abdominal exam: Present: soft, normal bowel sounds - Extremities Exam Extremities exam: Present: normal inspection - Back Exam Back exam: Present: normal inspection - Neurological Exam Neurological exam: Present: alert, oriented X3 - Psychiatric Psychiatric exam: Present: normal affect, normal mood - Skin Skin exam: Present: warm, dry, intact, normal color. Absent: rash ED Course Vital Signs 08/06/21 08/06/21 08/06/21 16:54 18:00 18:01 Temperature 99.0 F 98.0 F Pulse Rate 73 65 Respiratory 16 14 Rate Blood Pressure 137/71 Blood Pressure 178/104 [Right] O2 Sat by Pulse 98 98 98 Oximetry ED Medical Decision Making - Lab Data Result diagrams: 08/06/21 17:39 08/06/21 17:39 - Radiology Data Radiology results: report reviewed, image reviewed nap - Medical Decision Making Lab Results 08/06/21 08/06/21 08/06/21 Range/Units 17:24 17:39 17:39 WBC 6.7 (4.5-11.0) K/mm3 RBC 4.68 (3.65-5.03) M/mm3 Hgb 12.4 (10.1-14.3) gm/dl Hct 37.3 (30.3-42.9) % MCV 80 (79-97) fl MCH 26 L (28-32) pg MCHC 33 (30-34) % RDW 14.8 (13.2-15.2) % Plt Count 375 (140-440) K/mm3 Lymph % (Auto) 33.1 (13.4-35.0) % [place] % (Auto) 5.7 (0.0-7.3) % Eos % (Auto) 0.9 (0.0-4.3) % Baso % (Auto) 0.2 (0.0-1.8) % Lymph # (Auto) 2.2 (1.2-5.4) K/mm3 [place] # (Auto) 0.4 (0.0-0.8) K/mm3 Eos # (Auto) 0.1 (0.0-0.4) K/mm3 Baso # (Auto) 0.0 (0.0-0.1) K/mm3 Seg Neutrophils % 60.3 (40.0-70.0) % Seg Neutrophils # 4.0 (1.8-7.7) K/mm3 VBG pH (7.320-7.420) Sodium 137 (137-145) mmol/L Potassium 3.8 (3.6-5.0) mmol/L Chloride 100.7 (98-107) mmol/L Carbon Dioxide 26 (22-30) mmol/L Anion Gap 14 mmol/L BUN 10 (7-17) mg/dL Creatinine 0.9 (0.6-1.2) mg/dL Estimated GFR > 60 ml/min BUN/Creatinine Ratio 11 % Glucose 232 H (65-100) mg/dL POC Glucose 221 H (70-105) mg/dL Ketones Quantitative Negative (Negative) Calcium 9.4 (8.4-10.2) mg/dL Total Bilirubin 0.90 (0.1-1.2) mg/dL Direct Bilirubin < 0.2 (0-0.2) mg/dL Indirect Bilirubin 0.7 mg/dL AST 8 (5-40) units/L ALT 9 (7-56) units/L Alkaline Phosphatase 73 (35-129) units/L Troponin T (0.00-0.029) ng/mL Total Protein 7.7 (6.3-8.2) g/dL Albumin 3.9 (3.9-5) g/dL Albumin/Globulin Ratio 1.0 % Lipase 13 (13-60) units/L HCG, Quant (0-4) mIU/mL Urine Color (Yellow) Urine Turbidity (Clear) Urine pH (5.0-7.0) Ur Specific [place] (1.003-1.030) Urine Protein (Negative) mg/dL Urine Glucose (UA) (Negative) mg/dL Urine Ketones (Negative) mg/dL Urine Blood (Negative) Urine Nitrite (Negative) Urine Bilirubin (Negative) Urine Urobilinogen (<2.0) mg/dL Ur Leukocyte Esterase (Negative) Urine WBC (Auto) (0.0-6.0) /HPF Urine RBC (Auto) (0.0-6.0) /HPF U Epithel Cells (Auto) (0-13.0) /HPF Urine Mucus /HPF 08/06/21 08/06/21 08/06/21 Range/Units 17:39 17:39 17:39 WBC (4.5-11.0) K/mm3 RBC (3.65-5.03) M/mm3 Hgb (10.1-14.3) gm/dl Hct (30.3-42.9) % MCV (79-97) fl MCH (28-32) pg MCHC (30-34) % RDW (13.2-15.2) % Plt Count (140-440) K/mm3 Lymph % (Auto) (13.4-35.0) % [place] % (Auto) (0.0-7.3) % Eos % (Auto) (0.0-4.3) % Baso % (Auto) (0.0-1.8) % Lymph # (Auto) (1.2-5.4) K/mm3 [place] # (Auto) (0.0-0.8) K/mm3 Eos # (Auto) (0.0-0.4) K/mm3 Baso # (Auto) (0.0-0.1) K/mm3 Seg Neutrophils % (40.0-70.0) % Seg Neutrophils # (1.8-7.7) K/mm3 VBG pH 7.379 (7.320-7.420) Sodium (137-145) mmol/L Potassium (3.6-5.0) mmol/L Chloride (98-107) mmol/L Carbon Dioxide (22-30) mmol/L Anion Gap mmol/L BUN (7-17) mg/dL Creatinine (0.6-1.2) mg/dL Estimated GFR ml/min BUN/Creatinine Ratio % Glucose (65-100) mg/dL POC Glucose (70-105) mg/dL Ketones Quantitative (Negative) Calcium (8.4-10.2) mg/dL Total Bilirubin (0.1-1.2) mg/dL Direct Bilirubin (0-0.2) mg/dL Indirect Bilirubin mg/dL AST (5-40) units/L ALT (7-56) units/L Alkaline Phosphatase (35-129) units/L Troponin T < 0.010 (0.00-0.029) ng/mL Total Protein (6.3-8.2) g/dL Albumin (3.9-5) g/dL Albumin/Globulin Ratio % Lipase (13-60) units/L HCG, Quant < 2 (0-4) mIU/mL Urine Color (Yellow) Urine Turbidity (Clear) Urine pH (5.0-7.0) Ur Specific [place] (1.003-1.030) Urine Protein (Negative) mg/dL Urine Glucose (UA) (Negative) mg/dL Urine Ketones (Negative) mg/dL Urine Blood (Negative) Urine Nitrite (Negative) Urine Bilirubin (Negative) Urine Urobilinogen (<2.0) mg/dL Ur Leukocyte Esterase (Negative) Urine WBC (Auto) (0.0-6.0) /HPF Urine RBC (Auto) (0.0-6.0) /HPF U Epithel Cells (Auto) (0-13.0) /HPF Urine Mucus /HPF 08/06/21 Range/Units Unknown WBC (4.5-11.0) K/mm3 RBC (3.65-5.03) M/mm3 Hgb (10.1-14.3) gm/dl Hct (30.3-42.9) % MCV (79-97) fl MCH (28-32) pg MCHC (30-34) % RDW (13.2-15.2) % Plt Count (140-440) K/mm3 Lymph % (Auto) (13.4-35.0) % [place] % (Auto) (0.0-7.3) % Eos % (Auto) (0.0-4.3) % Baso % (Auto) (0.0-1.8) % Lymph # (Auto) (1.2-5.4) K/mm3 [place] # (Auto) (0.0-0.8) K/mm3 Eos # (Auto) (0.0-0.4) K/mm3 Baso # (Auto) (0.0-0.1) K/mm3 Seg Neutrophils % (40.0-70.0) % Seg Neutrophils # (1.8-7.7) K/mm3 VBG pH (7.320-7.420) Sodium (137-145) mmol/L Potassium (3.6-5.0) mmol/L Chloride (98-107) mmol/L Carbon Dioxide (22-30) mmol/L Anion Gap mmol/L BUN (7-17) mg/dL Creatinine (0.6-1.2) mg/dL Estimated GFR ml/min BUN/Creatinine Ratio % Glucose (65-100) mg/dL POC Glucose (70-105) mg/dL Ketones Quantitative (Negative) Calcium (8.4-10.2) mg/dL Total Bilirubin (0.1-1.2) mg/dL Direct Bilirubin (0-0.2) mg/dL Indirect Bilirubin mg/dL AST (5-40) units/L ALT (7-56) units/L Alkaline Phosphatase (35-129) units/L Troponin T (0.00-0.029) ng/mL Total Protein (6.3-8.2) g/dL Albumin (3.9-5) g/dL Albumin/Globulin Ratio % Lipase (13-60) units/L HCG, Quant (0-4) mIU/mL Urine Color Yellow (Yellow) Urine Turbidity Clear (Clear) Urine pH 7.0 (5.0-7.0) Ur Specific [place] 1.018 (1.003-1.030) Urine Protein 30 mg/dl (Negative) mg/dL Urine Glucose (UA) 50 (Negative) mg/dL Urine Ketones Neg (Negative) mg/dL Urine Blood Neg (Negative) Urine Nitrite Neg (Negative) Urine Bilirubin Neg (Negative) Urine Urobilinogen < 2.0 (<2.0) mg/dL Ur Leukocyte Esterase Neg (Negative) Urine WBC (Auto) < 1.0 (0.0-6.0) /HPF Urine RBC (Auto) 1.0 (0.0-6.0) /HPF U Epithel Cells (Auto) 6.0 (0-13.0) /HPF Urine Mucus Few /HPF Vital Signs 08/06/21 08/06/21 08/06/21 16:54 18:00 18:01 Temperature 99.0 F 98.0 F Pulse Rate 73 65 Respiratory 16 14 Rate Blood Pressure 137/71 Blood Pressure 178/104 [Right] O2 Sat by Pulse 98 98 98 Oximetry labs noted ua noted preg neg xray nap bg downtrending Pt is taking her bp and dm meds. NS/zofran/reglan in ER. She reports feeling better. On dc exam pt taking PO. She will follow up with pcp/gi. Pt verbalizes understanding of dc plan of care including diet, activity, meds and follow up. Ambulatory and in nad on discharge. - Differential Diagnosis ro dka/preg/uti/pylo/gastroenteritis/gerd Critical care attestation.: If time is entered above; I have spent that time in minutes in the direct care of this critically ill patient, excluding procedure time. ED Disposition Clinical Impression: Vomiting, Hyperglycemia, History of diabetes mellitus Disposition: HOME / SELF CARE / HOMELESS Is pt being admited?: No Does the pt Need Aspirin: No Condition: Stable Instructions: Nausea and Vomiting, Adult Additional Instructions: NEGATIVE LABS AND UA NORMAL FOLLOW UP WITH PCP IN 48 HOURS IF YOU ARE NOT FEELING BETTER BLAND DIET BANANA RICE APPLESAUCE AND TOAST ADVANCE TOLERATED Prescriptions: Ondansetron [Zofran Odt] 4 mg PO Q8HR PRN #10 tab.rapdis PRN Reason: Vomiting Referrals: PRIMARY CARE, [Primary Care Provider] - 3-5 Days FELICIANO CANTU MD [Staff Physician] - 3-5 Days Time of Disposition: 20:12
[2021-08-06 18:02] VITALS: BP 137/71
[2021-08-06 18:12] LABS: Eosinophils # (Auto) 0.1 K/mm3 (0.0-0.4); Eosinophils % (Auto) 0.9 % (0.0-4.3); Monocytes # (Auto) 0.4 K/mm3 (0.0-0.8); Monocytes % (Auto) 5.7 % (0.0-7.3)
[2021-08-06 18:19] LABS: Alanine Aminotransferase 9 units/L (7-56); Albumin 3.9 g/dL (3.9-5); BUN/Creatinine Ratio 11; Blood Urea Nitrogen 10 mg/dL (7-17); Calcium 9.4 mg/dL (8.4-10.2); Hemolysis Index 0
[2021-08-06 18:20] LABS: Bilirubin,Direct < 0.2 mg/dL (0-0.2)
[2021-08-06 18:22] LABS: Bilirubin,Urine NEG (Negative); Blood,Urine NEG (Negative); Color,Urine Yellow (Yellow); Mucus,Urine FEW /HPF; Urobilinogen,Urine < 2.0 mg/dL (<2.0); WBC,Urine < 1.0 /HPF (0.0-6.0)
[2021-08-06] MEDS ORDERED: METOCLOPRAMIDE 10 MG/2 ML INJ IV ONE (18:44)
[2021-08-06 18:54] LABS: Basophils % (Auto) 0.2 % (0.0-1.8); Hematocrit 37.3 % (30.3-42.9); Hemoglobin 12.4 gm/dl (10.1-14.3); Lymphocytes % (Auto) 33.1 % (13.4-35.0); Mean Corpuscular HGB Conc 33 % (30-34); Mean Corpuscular Volume 80 fl (79-97); Platelet Count 375 K/mm3 (140-440); Red Blood Count 4.68 M/mm3 (3.65-5.03); Red Cell Distribution Width 14.8 % (13.2-15.2)
--- NOTE | 2021-08-06 19:05 | XRay Report ---
CHEST 1 VIEW 08/06/2021 6:55 PM INDICATION / CLINICAL INFORMATION: Weakness. Shortness of breath. COMPARISON: 05/11/2020 FINDINGS: SUPPORT DEVICES: None. HEART / MEDIASTINUM: Heart size upper limits of normal. LUNGS / PLEURA: No significant pulmonary or pleural abnormality. No pneumothorax. ADDITIONAL FINDINGS: No significant additional findings. IMPRESSION: No acute abnormality. Signer Name: Ga Hercules MD Signed: 08/06/2021 7:00 PM Workstation Name: [id number]
[2021-08-06 19:57] LABS: Lymphocytes # (Auto) 2.2 K/mm3 (1.2-5.4)
== END 2021-08-06 21:22 | disposition home or self-care (01) ==
LOC: ED 16:51
DX: E11.65 Type 2 diabetes mellitus with hyperglycemia (principal); R11.2 Nausea with vomiting, unspecified; I10 Essential (primary) hypertension; J45.909 Unspecified asthma, uncomplicated; G43.909 Migraine, unspecified, not intractable, without status migrainosus; E66.01 Morbid (severe) obesity due to excess calories; D64.9 Anemia, unspecified
CPT/HCPCS: 36415; 71045; 80048; 80076; 81001; 82010; 82805; 82962; 83690; 84484; 84702; 85025; 96361; 96374; 96375; 96376; 99284; J2405; J2765; J7030

== ENCOUNTER 2021-09-07 19:12 | Emergency (ER) | payer MEDICAID ==
[2021-09-07] MEDS ORDERED: SODIUM CHLORIDE 0.9% 1000 ML 1,000 ML IV ONE (20:00)
[2021-09-07] MEDS ORDERED: diphenhydrAMINE 50 MG/ML VIAL IV ONE (20:00)
[2021-09-07] MEDS ORDERED: METOCLOPRAMIDE 10 MG/2 ML INJ IV ONE (20:00)
[2021-09-07 20:36] LABS: Basophils % (Auto) 0.2 % (0.0-1.8); Eosinophils % (Auto) 0.1 % (0.0-4.3); Hematocrit 38.3 % (30.3-42.9); Hemoglobin 12.5 gm/dl (10.1-14.3); Lymphocytes # (Auto) 1.2 K/mm3 (1.2-5.4); Lymphocytes % (Auto) 21.6 % (13.4-35.0); Mean Corpuscular HGB Conc 33 % (30-34); Mean Corpuscular Volume 79 fl (79-97); Monocytes # (Auto) 0.2 K/mm3 (0.0-0.8); Monocytes % (Auto) 3.5 % (0.0-7.3); Platelet Count 368 K/mm3 (140-440); Red Blood Count 4.86 M/mm3 (3.65-5.03)
[2021-09-07 20:50] LABS: Alanine Aminotransferase 11 units/L (7-56); Albumin 3.7 g/dL (3.9-5); BUN/Creatinine Ratio 13; Blood Urea Nitrogen 10 mg/dL (7-17); Calcium 9.1 mg/dL (8.4-10.2); Hemolysis Index 46
[2021-09-07] MEDS ORDERED: INSULIN REGULAR, HUMAN 100 UNITS/1 ML IV ONE (21:41)
[2021-09-07] MEDS ORDERED: PANTOPRAZOLE 40 MG INJ IV ONE (21:41)
[2021-09-07] MEDS ORDERED: amLODIPine 10 MG TAB PO STA (21:42)
--- NOTE | 2021-09-07 21:42 | Emergency Department Report ---
ED General Adult HPI - General Chief complaint: Nausea/Vomiting/Diarrhea Stated complaint: N/V PUI?: No Time Seen by Provider: 09/07/21 21:17 Source: patient, EMS ( EMS documentation not available at time of chart dictati on ), RN notes reviewed Mode of arrival: Stretcher Limitations: Other (The patient is a poor historian) - History of Present Illness Initial comments: The patient is a 46-year-old female. Her past medical history includes body mass index of 42.6, poorly controlled diabetes, hemoglobin A1c of 09 May 2021, also has a history of probable gastroparesis, hypertension. The patient presents to the ER today with a complaint of resolved nausea and vomiting, as well as constipation. She was medicated prior to my personal arrival. At the moment, the patient denies headache, neck pain, chest pain, severe abdo karen pain, urinary symptoms, focal extremity weakness and numbness. She endorses constipation. She denies black stool. She denies hematemesis. She reports that her outpatient GI physician is working her up for "gastro", but she does not know if she has a formal diagnosis of gastroparesis. She was medicated in the emergency room with Benadryl and Reglan which markedly improved her symptoms -: Gradual, week(s) Consistency: intermittent Improves with: medication Worsens with: other (Attempting to defecate. Attempting to eat) - Related Data Previous Rx's Medication Instructions Recorded Last Taken Type metFORMIN [Glucophage] 500 mg PO BID #60 tablet 04/21/21 Unknown Rx amLODIPine 5 mg PO QDAY #30 tablet 04/30/21 Unknown Rx Ondansetron [Zofran Odt] 4 mg PO Q8HR PRN #10 tab.rapdis 08/06/21 Unknown Rx Metoprolol [Lopressor TAB] 25 mg PO BID #60 tablet 08/11/21 Unknown Rx Pantoprazole [Protonix] 40 mg PO QAM #30 tablet 08/11/21 Unknown Rx diphenhydrAMINE [Benadryl CAP] 25 mg PO Q8HR PRN #30 capsule 08/11/21 Unknown Rx glipiZIDE [Glucotrol] 10 mg PO BIDDIAB 30 Days #60 tablet 08/11/21 Unknown Rx hydroCHLOROthiazide 12.5 mg PO DAILY 30 Days #30 cap 08/11/21 Unknown Rx [Hydrochlorothiazide] Metoclopramide [Reglan TAB] 10 mg PO Q6HR PRN #30 tab 09/07/21 Unknown Rx Promethazine [Phenergan] 25 mg OK Q6HR PRN #15 supp.rect 09/07/21 Unknown Rx amLODIPine 10 mg PO DAILY 30 Days #30 tab 09/07/21 Unknown Rx Allergies Allergy/AdvReac Type Severity Reaction Status Date / Time No Known Allergies Allergy Verified 09/07/21 19:31 ED Review of Systems ROS: Stated complaint: N/V Other details as noted in HPI Constitutional: denies: diaphoresis, fever, malaise Eyes: denies: eye discharge ENT: denies: epistaxis Respiratory: denies: cough Cardiovascular: denies: chest pain Gastrointestinal: abdominal pain, nausea, vomiting, constipation. denies: hematemesis, melena, hematochezia Genitourinary: denies: dysuria Musculoskeletal: denies: myalgia Neurological: weakness Psychiatric: anxiety Hematological/Lymphatic: denies: easy bleeding ED Past Medical Hx - Past Medical History Hx Hypertension: Yes Hx Diabetes: Yes Hx Headaches / Migraines: Yes (migraines) Hx Asthma: Yes Hx COPD: No Additional medical history: morbid obesity. anemia - Surgical History Additional Surgical History: tubal Ligation - Social History Smoking Status: Never Smoker Substance Use Type: None - Medications Home Medications: Home Medications Medication Instructions Recorded Confirmed Last Taken Type metFORMIN [Glucophage] 500 mg PO BID #60 tablet 04/21/21 Unknown Rx amLODIPine 5 mg PO QDAY #30 tablet 04/30/21 Unknown Rx Ondansetron [Zofran Odt] 4 mg PO Q8HR PRN #10 tab.rapdis 08/06/21 Unknown Rx Metoprolol [Lopressor TAB] 25 mg PO BID #60 tablet 08/11/21 Unknown Rx Pantoprazole [Protonix] 40 mg PO QAM #30 tablet 08/11/21 Unknown Rx diphenhydrAMINE [Benadryl CAP] 25 mg PO Q8HR PRN #30 capsule 08/11/21 Unknown Rx glipiZIDE [Glucotrol] 10 mg PO BIDDIAB 30 Days #60 tablet 08/11/21 Unknown Rx hydroCHLOROthiazide 12.5 mg PO DAILY 30 Days #30 cap 08/11/21 Unknown Rx [Hydrochlorothiazide] Metoclopramide [Reglan TAB] 10 mg PO Q6HR PRN #30 tab 09/07/21 Unknown Rx Promethazine [Phenergan] 25 mg OK Q6HR PRN #15 supp.rect 09/07/21 Unknown Rx amLODIPine 10 mg PO DAILY 30 Days #30 tab 09/07/21 Unknown Rx ED Physical Exam - General Limitations: No Limitations, Other (During the history and physical, chaperoned by nurse Almaz Coffman) General appearance: alert, in no apparent distress, obese - Head Head exam: Present: atraumatic, normocephalic - Eye Eye exam: Present: normal appearance, EOMI. Absent: nystagmus - ENT ENT exam: Present: normal exam, normal orophraynx, mucous membranes moist, normal external ear exam - Neck Neck exam: Present: normal inspection, full ROM. Absent: tenderness, meningismus - Respiratory Respiratory exam: Present: normal lung sounds bilaterally. Absent: respiratory distress, wheezes, rales, rhonchi, stridor, decreased breath sounds - Cardiovascular Cardiovascular Exam: Present: regular rate, normal rhythm, normal heart sounds. Absent: bradycardia, tachycardia, irregular rhythm, systolic murmur, diastolic murmur, rubs, gallop - GI/Abdominal GI/Abdominal exam: Present: soft. Absent: distended, tenderness, guarding, rebound, rigid, pulsatile mass - Extremities Exam Extremities exam: Present: normal inspection, full ROM, other (2+ pulses noted in the bilateral upper and lower extremities. There is no palpable cord. negative Homans sign. Muscular compartments are soft. The pelvis is stable.). Absent: pedal edema, calf tenderness - Back Exam Back exam: Present: normal inspection, full ROM. Absent: tenderness, CVA tenderness (R), CVA tenderness (L), paraspinal tenderness, vertebral tenderness - Neurological Exam Neurological exam: Present: alert, oriented X3, other (No facial droop. Tongue midline. Extraocular movements intact bilaterally. Facial sensation intact to light touch in V1, V2, V3 distribution bilaterally. 5 and a 5 strength in 4 extremities. Sensation intact to light touch in 4 extremities.). Absent: motor sensory deficit - Psychiatric Psychiatric exam: Present: normal affect, normal mood - Skin Skin exam: Present: warm, dry, intact, normal color. Absent: rash ED Course Vital Signs 09/07/21 09/07/21 19:32 22:46 Temperature 98.3 F Pulse Rate 87 82 Respiratory 18 Rate Blood Pressure 186/100 Blood Pressure 191/121 [Left] O2 Sat by Pulse 100 Oximetry - Reevaluation(s) Reevaluation #1: 09/07/21 23:04 Laboratory studies demonstrate mild acidosis, likely secondary to nausea and vomiting, likely secondary to gastroparesis. Patient not actively vomiting this time, she may follow-up with her outpatient primary care doctor for this peer ED Medical Decision Making - Lab Data Result diagrams: 09/07/21 20:18 09/07/21 20:18 Vital Signs 09/07/21 09/07/21 19:32 22:46 Temperature 98.3 F Pulse Rate 87 82 Respiratory 18 Rate Blood Pressure 186/100 Blood Pressure 191/121 [Left] O2 Sat by Pulse 100 Oximetry Lab Results 09/07/21 09/07/21 09/07/21 Range/Units 20:18 20:18 20:18 WBC 5.5 (4.5-11.0) K/mm3 RBC 4.86 (3.65-5.03) M/mm3 Hgb 12.5 (10.1-14.3) gm/dl Hct 38.3 (30.3-42.9) % MCV 79 (79-97) fl MCH 26 L (28-32) pg MCHC 33 (30-34) % RDW 14.0 (13.2-15.2) % Plt Count 368 (140-440) K/mm3 Lymph % (Auto) 21.6 (13.4-35.0) % [place] % (Auto) 3.5 (0.0-7.3) % Eos % (Auto) 0.1 (0.0-4.3) % Baso % (Auto) 0.2 (0.0-1.8) % Lymph # (Auto) 1.2 (1.2-5.4) K/mm3 [place] # (Auto) 0.2 (0.0-0.8) K/mm3 Eos # (Auto) 0.0 (0.0-0.4) K/mm3 Baso # (Auto) 0.0 (0.0-0.1) K/mm3 Seg Neutrophils % 74.6 H (40.0-70.0) % Seg Neutrophils # 4.1 (1.8-7.7) K/mm3 Sodium 136 L (137-145) mmol/L Potassium 3.7 (3.6-5.0) mmol/L Chloride 101.7 (98-107) mmol/L Carbon Dioxide 17 L (22-30) mmol/L Anion Gap 21 mmol/L BUN 10 (7-17) mg/dL Creatinine 0.8 (0.6-1.2) mg/dL Estimated GFR > 60 ml/min BUN/Creatinine Ratio 13 % Glucose 249 H (65-100) mg/dL Calcium 9.1 (8.4-10.2) mg/dL Total Bilirubin 0.80 (0.1-1.2) mg/dL AST 13 (5-40) units/L ALT 11 (7-56) units/L Alkaline Phosphatase 79 (35-129) units/L Total Protein 7.8 (6.3-8.2) g/dL Albumin 3.7 L (3.9-5) g/dL Albumin/Globulin Ratio 0.9 % Lipase 12 L (13-60) units/L HCG, Qual Negative (Negative) - EKG Data -: EKG Interpreted by Ga EKG shows normal: sinus rhythm Rate: normal - EKG Data 09/07/21 22:55 The EKG is interpreted by myself at 21: 51 Sinus rhythm, rate 89 bpm. Normal axis, prolonged OK interval. Prolonged QTC, normal P wave axis. There is left ventricular hypertrophy, there is a first- degree AV block, the QTC is 470 ms. There is motion artifact. This is an abnormal EKG. This is not a STEMI. - Radiology Data Radiology results: pending, report reviewed, image reviewed ABDOMEN 4 VIEW(S) INDICATION / CLINICAL INFORMATION: n/v suspect constipation. COMPARISON: CT from 08/11/2021 FINDINGS: TUBES / LINES: None. BOWEL GAS PATTERN: Bowel gas pattern is nonobstructive. Moderate to large colonic stool burden. FREE AIR / EXTRALUMINAL GAS: None seen. ADDITIONAL FINDINGS: No significant additional findings. CHEST: Visualized chest shows no significant abnormality. IMPRESSION: Moderate to large colonic stool burden, compatible with constipation. Bowel gas pattern is nonobstructive. Signer Name: Edenilson Becerra MD Signed: 09/07/2021 9:25 PM - Medical Decision Making Differential diagnosis, including but not limited to: Constipation, IBS, gastroparesis, noncompliance, uncontrolled hypertension, uncontrolled hyperglycemia/type 2 diabetes Assessment and plan: 46-year-old female, who was afebrile, with reassuring vital signs with exception of chronic hypertension, not actively vomiting at this time, with a known hemoglobin A1c of greater than 14, and probable gastropares is. Hypertension chronic, not acutely decompensated, please reference the [employer] clinical policy on asymptomatic hypertension. As per review of prior documentation from April 2021, patient has been counseled regarding compliance with diabetic control and diet, in addition to counseling regarding morbid obesity. This patient has multiple chronic issues which do not appear to be acutely decompensated at this time, on multiple repeat evaluations, she is resting c omfortably in her stretcher, not vomiting, with a soft benign abdominal exam, she is medically suitable at this time to follow-up with an outpatient primary care doctor and her GI physician for her multiple chronic issues per Critical care attestation.: If time is entered above; I have spent that time in minutes in the direct care of this critically ill patient, excluding procedure time. ED Disposition Clinical Impression: History of nausea and vomiting, HTN (hypertension), Uncontrolled diabetes mellitus, Body mass index greater than 40, Constipation Disposition: 01 HOME / SELF CARE / HOMELESS Is pt being admited?: No Does the pt Need Aspirin: No Condition: Good Instructions: Hypertension (ED), Diabetes Mellitus Type 2 in Adults (ED), Constipation, Adult, [id number], Hypertension, Adult, Type 2 Diabetes Mellitus, Self Care, Adult, [id number] Additional Instructions: As we discussed, we suspect that the patient has gastroparesis. Gastroparesis typically stems from uncontrolled type 2 diabetes. Patient had a hemoglobin A1c of 14 in April of this year, indicating very poor type 2 diabetes control. Glycemic/diabetes control typically takes months to improve. We therefore recommend aggressive weight loss, exercise as tolerated, consumption of 6 cups of water per day, and consumption of plenty of fiber, vegetables and lean protein. We also recommend that the patient avoid carbohydrates, sugar, processed foods, and excessively fatty foods. The aforementioned interventions should also improve patient's complaints of constipation. Please note that constipation ideally will take 3 to 6 weeks to improve. The patient is also found to have a body mass index of 42, and elevated blood pressure. These, in combination with uncontrolled diabetes, place patient at risk for heart attack, stroke, disability, paralysis, and loss of quality of life. Treatment includes remaining compliant with outpatient medications, and pursuing the aforementioned diet lifestyle modifications. Recommend that the patient follow-up with her primary care doctor within the next week for recheck and evaluation. 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 Take the Reglan medication as needed orally, and take the Phenergan suppository as needed for intractable nausea and vomiting not relieved by Reglan medication. Next para Referrals: [facility] [Provider Group] - 3-5 Days [facility] [Provider Group] - 3-5 Days Forms: Work/School Release Form(ED)
--- NOTE | 2021-09-07 22:29 | XRay Report ---
ABDOMEN 4 VIEW(S) INDICATION / CLINICAL INFORMATION: n/v suspect constipation. COMPARISON: CT from 08/11/2021 FINDINGS: TUBES / LINES: None. BOWEL GAS PATTERN: Bowel gas pattern is nonobstructive. Moderate to large colonic stool burden. FREE AIR / EXTRALUMINAL GAS: None seen. ADDITIONAL FINDINGS: No significant additional findings. CHEST: Visualized chest shows no significant abnormality. IMPRESSION: Moderate to large colonic stool burden, compatible with constipation. Bowel gas pattern is nonobstruc tive. Signer Name: Edenilson Becerra MD Signed: 09/07/2021 10:25 PM Workstation Name: [id number]
[2021-09-07 23:58] VITALS: BP 156/94
--- NOTE | 2021-09-11 10:48 | Electrocardiograph Report ---
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
== END 2021-09-08 00:35 | disposition home or self-care (01) ==
LOC: ED 19:12
DX: R11.2 Nausea with vomiting, unspecified (principal); I10 Essential (primary) hypertension; K59.00 Constipation, unspecified; E11.8 Type 2 diabetes mellitus with unspecified complications; Z68.41 Body mass index [BMI] 40.0-44.9, adult; J45.909 Unspecified asthma, uncomplicated
CPT/HCPCS: 36415; 74019; 80053; 83690; 84703; 85025; 93005; 96361; 96374; 96375; 99284; C9113; J1200; J2765; J7030; Q0162; Q9967; J1815